=== PATIENT | female | born 1940 | race Caucasian/White ===

== ENCOUNTER → 2019-05-14 | Outpatient (CLI) | payer MEDICARE, OTHER ==
[~2019-05-14] MED LIST: CELE200C PO; DONE5TAB56 PO; FEXO180T81 PO; FLUO20CA16 PO; FLUT16SP NS; MONT10TA49 PO; OMEP20CA10 PO
[2019-05-14 14:46] LABS: HEMATOCRIT 23.5 % (36.0-47.0)
== END | disposition home or self-care (01) ==
LOC: LAB 14:08
PROVIDERS: ATTEND Family Medicine
DX: D64.9 Anemia, unspecified (principal)
CPT/HCPCS: 36415; 85014; 85018; 86850; 86900; 86901; 86920

== ENCOUNTER 2019-06-19 17:58 | Emergency (ER) | payer MEDICARE, OTHER ==
[~2019-06-19] VITALS: Ht 162.6 cm; Wt 121.1 kg
[2019-06-19 18:44] LABS: BASO # 0.1 x10^3/uL (0.0-0.2); BASO % 1 % (0-3); EOS # 0.4 x10^3/uL (0.0-0.7); EOS % 5 % (0-3); HEMATOCRIT 32.2 % (36.0-47.0); HEMOGLOBIN 9.8 g/dL (12.0-15.5); LYMPH # 1.6 x10^3/uL (1.0-4.8); LYMPH % 20 % (24-48); MEAN CORPUSCULAR HEMOGLOBIN 23 pg (25-35); MEAN CORPUSCULAR HGB CONC 30 g/dL (31-37); MEAN CORPUSCULAR VOLUME 77 fL (79-100); MONO # 0.7 x10^3/uL (0.0-1.1); MONO % 8 % (0-9); NEUT # 5.2 x10^3/uL (1.8-7.7); NEUT % 65 % (31-73); PLATELET COUNT 268 x10^3/uL (140-400); RED CELL DISTRIBUTION WIDTH 29.8 % (11.5-14.5)
[2019-06-19 18:53] LABS: CREATININE 0.9 mg/dL (0.6-1.0); GFR 60.6; POTASSIUM 4.1 mmol/L (3.5-5.1)
[2019-06-19 18:59] LABS: ALBUMIN 3.1 g/dL (3.4-5.0); ALBUMIN/GLOBULIN RATIO 0.7 (1.0-1.7); TOTAL BILIRUBIN 0.4 mg/dL (0.2-1.0); TOTAL PROTEIN 7.4 g/dL (6.4-8.2)
--- NOTE | 2019-06-19 19:29 | RAD ---
Exam: Chest one view INDICATION: Shortness of breath TECHNIQUE: Frontal view of the chest Comparisons: None FINDINGS: The cardiomediastinal silhouette and pulmonary vessels are within normal limits. Calcified hilar lymph nodes noted. Postsurgical changes at the left shoulder. The lung and pleural spaces are clear. IMPRESSION: No acute cardiopulmonary process. Electronically signed by: Ferny Merlos MD (06/19/2019 7:25 PM) [facility]
[2019-06-19 19:40] LABS: ANISOCYTOSIS MOD; PLT ESTIMATE ADEQUATE (ADEQUATE); POLYCHROMASIA SLIGHT; SCHISTOCYTES OCC
[2019-06-19] MEDS ORDERED: CEPH500C PO (20:07)
[2019-06-19 20:16] VITALS: BP 135/71
--- NOTE | 2019-06-19 20:34 | PHYS DOC ---
Past Medical History Past Medical History: Anemia Additional Past Medical Histor: BLOOD TRANSFUSIONS Alcohol Use: None Drug Use: None Adult General Chief Complaint Chief Complaint: MULTIPLE COMPLAINTS HPI HPI Patient is a 79 year old [female who presents the emergency room with multiple complaints the first complaint is that of itchiness and scratchiness of multiple lesions on her upper thorax and face which she has had for several months person accompanying her is worried it could be getting infected with a derma tologist did not want to give antibiotics they're here because she thinks that that might help. Other side note is that of shortness of breath but appears stable has had blood transfusions in the past however patient states that is not any different than usual Review of Systems Review of Systems Constitutional: Denies fever or chills [] Eyes: Denies change in visual acuity, redness, or eye pain [] Musculoskeletal: Denies back pain or joint pain [] Integument: Neurologic: Denies headache, focal weakness or sensory changes [] Endocrine: Denies polyuria or polydipsia [] All other systems were reviewed and found to be within normal limits, except as documented in this note. Allergies Allergies Allergies Coded Allergies Type Severity Reaction Last Updated Verified No Known Drug Allergies 06/19/19 No Physical Exam Physical Exam Constitutional: Well developed, over nourished, no acute distress, non-toxic candida earance. [] HENT: Normocephalic, atraumatic, bilateral external ears normal, oropharynx moist, no oral exudates, nose normal. [] Eyes: PERRLA, EOMI, conjunctiva normal, no discharge. [] Neck: Normal range of motion, no tenderness, supple, no stridor. [] Cardiovascular:Heart rate regular rhythm, no murmur [] Lungs & Thorax: Bilateral breath sounds clear to auscultation [] Abdomen: Bowel sounds normal, soft, no tenderness, no masses, no pulsatile masses. [] Skin: Scattered excoriated lesions on the upper thorax and face with some possible mild surrounding areas of erythema with induration totaling 5-8 lesions or more Maxide 2-3 cm no fluctuance seen Back: No tenderness, no CVA tenderness. [] Extremities: No tenderness, no cyanosis, no clubbing, ROM intact, 1+ edema bilaterally Neurologic: Alert and oriented X 3, normal motor function, normal sensory function, no focal deficits noted. [] Psychologic: Affect normal, judgement normal, mood normal. [] Current Patient Data Vital Signs Vital Signs Date Time Temp Pulse Resp B/P (MAP) Pulse Ox O2 Delivery O2 Flow Rate FiO2 06/19/19 20:16 99 135/71 (92) 06/19/19 19:45 96 06/19/19 18:14 97.8 18 Room Air 97.8 Lab Values Laboratory Tests Test 06/19/19 18:25 White Blood Count 8.0 x10^3/uL (4.0-11.0) Red Blood Count 4.20 x10^6/uL (3.50-5.40) Hemoglobin 9.8 g/dL (12.0-15.5) L Hematocrit 32.2 % (36.0-47.0) L Mean Corpuscular Volume 77 fL (79-100) L Mean Corpuscular Hemoglobin 23 pg (25-35) L Mean Corpuscular Hemoglobin Concent 30 g/dL (31-37) L Red Cell Distribution Width 29.8 % (11.5-14.5) H Platelet Count 268 x10^3/uL (140-400) Neutrophils (%) (Auto) 65 % (31-73) Lymphocytes (%) (Auto) 20 % (24-48) L Monocytes (%) (Auto) 8 % (0-9) Eosinophils (%) (Auto) 5 % (0-3) H Basophils (%) (Auto) 1 % (0-3) Neutrophils # (Auto) 5.2 x10^3/uL (1.8-7.7) Lymphocytes # (Auto) 1.6 x10^3/uL (1.0-4.8) Monocytes # (Auto) 0.7 x10^3/uL (0.0-1.1) Eosinophils # (Auto) 0.4 x10^3/uL (0.0-0.7) Basophils # (Auto) 0.1 x10^3/uL (0.0-0.2) Platelet Estimate Adequate (ADEQUATE) Polychromasia Slight Anisocytosis Mod Schistocytes Occ Sodium Level 140 mmol/L (136-145) Potassium Level 4.1 mmol/L (3.5-5.1) Chloride Level 102 mmol/L (98-107) Carbon Dioxide Level 27 mmol/L (21-32) Anion Gap 11 (6-14) Blood Urea Nitrogen 13 mg/dL (7-20) Creatinine 0.9 mg/dL (0.6-1.0) Estimated GFR (Cockcroft-Gault) 60.6 BUN/Creatinine Ratio 14 (6-20) Glucose Level 102 mg/dL (70-99) H Calcium Level 9.0 mg/dL (8.5-10.1) Total Bilirubin 0.4 mg/dL (0.2-1.0) Aspartate Amino Transferase (AST) 25 U/L (15-37) Alanine Aminotransferase (ALT) 13 U/L (14-59) L Alkaline Phosphatase 99 U/L (46-116) Troponin I Quantitative < 0.017 ng/mL (0.000-0.055) HF-Lgw-R-Type Natriuretic Peptide 70 pg/mL (0-449) Total Protein 7.4 g/dL (6.4-8.2) Albumin 3.1 g/dL (3.4-5.0) L Albumin/Globulin Ratio 0.7 (1.0-1.7) L Laboratory Tests 06/19/19 18:25 Laboratory Tests 06/19/19 18:25 EKG EKG []EKG shows a normal sinus rhythm rate of 92 no acute ischemic changes noted interpreted by me the time of encounter Radiology/Procedures Radiology/Procedures [] Impressions: INDINGS: The cardiomediastinal silhouette and pulmonary vessels are within normal limits. Calcified hilar lymph nodes noted. Postsurgical changes at the left shoulder. The lung and pleural spaces are clear. IMPRESSION: No acute cardiopulmonary process. Electronically signed by: Ferny Whitney MD (06/19/2019 7:25 PM) [facility] DICTATED and SIGNED BY: FERNY HWITNEY MD DATE: 06/19/191924 Course & Med Decision Making Course & Med Decision Making Pertinent Labs and Imaging studies reviewed. (See chart for details) []79-year-old female with a prior history of anemia who is presenting primarily with a complaint of some skin lesions. There may be some scattered superinfection around some of these excoriated scabbed over lesion she is scrat vonnie them a lot she has seen a centrifugal wax molder already has had multiple topical agents she still scratches think a trial of outpatient oral antibiotics does seem reasonable given the appearance this was provided with Dr. lim risks and benefits. Regarding her stable shortness of breath this seems unchanged from prior hemoglobin is 9.8 could be contributory remainder of workup in the ER for that chest x-ray EKG BNP and troponin were all negative 96 ra bp ok mild elevation see nurses note for full vitals Dragon Disclaimer Dragon Disclaimer This electronic medical record was generated, in whole or in part, using a voice recognition dictation system. Departure Departure Impression: Primary Impression: Cellulitis Disposition: 01 HOME, SELF-CARE Condition: STABLE Patient Instructions: Cellulitis, Zhmu-wa-Ojrv Scripts Cephalexin (CEPHALEXIN) 500 Mg Capsule 1 CAP PO TID, #21 CAP Prov: JAILYN CHANDLER MD 06/19/19 JAILYN CHANDLER MD Jun 19, 2019 20:34
--- NOTE | 2019-06-20 11:19 | EKG ---
[facility] [address] [place] [address] Test Date: 2019-06-19 Test Time: 18:46:00 Pat Name: BERNA OWUSU Department: Room: Gender: F Office Rep: : 1940 Requested By: JAILYN CHANDLER Order Number: [id number] Reading MD: Measurements Intervals [place] Rate: 92 P: 50 [place]: 134 QRS: 19 QRSD: 86 T: 38 QT: 348 QTc: 435 Interpretive Statements SINUS RHYTHM ATRIAL PREMATURE COMPLEX(ES) NO SPECIFIC ECG ABNORMALITIES RI6.01 Unconfirmed report No previous ECG available for comparison
== END 2019-06-19 20:15 | disposition home or self-care (01) ==
LOC: ER 17:58
DX: L03.211 Cellulitis of face (principal); L03.313 Cellulitis of chest wall; R06.02 Shortness of breath
CPT/HCPCS: 36415; 71045; 80053; 83880; 84484; 85025; 93005; 99285-25

== ENCOUNTER → 2019-06-22 | Outpatient (CLI) | payer MEDICARE, OTHER ==
[2019-06-19 20:16] VITALS: BP 135/71
[~2019-06-22] MED LIST changes: +CEPH500C PO
--- NOTE | 2019-06-22 11:49 | KCIC ---
CT ABDOMEN WO CONTRAST Indication: Right upper quadrant pain for 2 or 3 weeks. Cholecystectomy. Exposure: One or more of the following individualized dose reduction techniques were utilized for this examination: 1. Automated exposure control 2. Adjustment of the mA and/or kV according to patient size 3. Use of iterative reconstruction technique. Comparison: None are available. Technique: No intravenous contrast given. No oral contrast per request. Findings: Evaluation of solid viscera, bowel and vasculature is compromised by the noncontrast technique. Lung bases are clear. No obvious lesion of the liver or spleen. Small hepatosplenic granulomatous calcifications are seen. Spleen is borderline enlarged at 12.3 cm. Pancreas is unremarkable. No evidence of adrenal mass. No evidence of renal calculus or hydronephrosis. Tiny calcification at the cortical surface of the upper pole the right kidney only measuring 3 mm may represent a tiny calcified cyst. Gallbladder surgically absent. Aorta is nonaneurysmal, with mild atherosclerotic calcification. No significant lymph node enlargement is identified in the abdomen. No evidence of ascites. No evidence of pneumoperitoneum. Severe degenerative spondylosis of the visualized spine. Degenerative changes of the partially visualized upper most sacroiliac joints. IMPRESSION: 1. Borderline splenomegaly. 2. No definite acute findings in the abdomen. Electronically signed by: Yasir Santamaria MD (06/22/2019 11:46 AM) [facility]
== END | disposition home or self-care (01) ==
LOC: KCIC CT 10:04
PROVIDERS: ATTEND Family Medicine
DX: R16.1 Splenomegaly, not elsewhere classified (principal); M47.819 Spondylosis without myelopathy or radiculopathy, site unspecified; M53.3 Sacrococcygeal disorders, not elsewhere classified; I70.0 Atherosclerosis of aorta
CPT/HCPCS: 74150

== ENCOUNTER → 2020-02-23 | Outpatient (CLI) | payer MEDICARE, OTHER ==
[2020-01-20 15:09] VITALS: BP 130/66
[~2020-02-23] MED LIST changes: +ALBU2.5V8 IH; +CYAN100072 PO; +DONE10TA14 PO; +FLUO40CA2 PO; +FLUT9.9S NS; +MEMA10TA PO; +MUPI22OI2 TP; -OMEP20CA10 PO; +OMEP20CA16 PO
[2020-02-23 14:08] LABS: HEMATOCRIT 38.6 % (36.0-47.0); HEMOGLOBIN 12.2 g/dL (12.0-15.5)
== END | disposition home or self-care (01) ==
LOC: SPEC 13:57
PROVIDERS: ATTEND Family Medicine
DX: D50.9 Iron deficiency anemia, unspecified (principal)
CPT/HCPCS: 36415; 83540; 83550; 85014; 85018

== ENCOUNTER → 2020-04-05 | Outpatient (CLI) | payer MEDICARE, OTHER ==
[2020-01-20 15:09] VITALS: BP 130/66
[2020-04-05 15:14] LABS: BASO # 0.1 x10^3/uL (0.0-0.2); BASO % 1 % (0-3); EOS # 0.1 x10^3/uL (0.0-0.7); EOS % 1 % (0-3); HEMATOCRIT 45.4 % (36.0-47.0); HEMOGLOBIN 14.8 g/dL (12.0-15.5); LYMPH # 1.8 x10^3/uL (1.0-4.8); LYMPH % 23 % (24-48); MEAN CORPUSCULAR HEMOGLOBIN 28 pg (25-35); MEAN CORPUSCULAR HGB CONC 33 g/dL (31-37); MEAN CORPUSCULAR VOLUME 86 fL (79-100); MONO # 0.5 x10^3/uL (0.0-1.1); MONO % 7 % (0-9); NEUT # 5.3 x10^3/uL (1.8-7.7); NEUT % 68 % (31-73); PLATELET COUNT 259 x10^3/uL (140-400); RED BLOOD COUNT 5.26 x10^6/uL (3.50-5.40); RED CELL DISTRIBUTION WIDTH 17.2 % (11.5-14.5); WHITE BLOOD COUNT 7.8 x10^3/uL (4.0-11.0)
[2020-04-05 15:35] LABS: CALCIUM 7.9 mg/dL (8.5-10.1); CREATININE 0.8 mg/dL (0.6-1.0); GFR 69.2
[2020-04-05 15:51] LABS: POTASSIUM 2.6 mmol/L (3.5-5.1)
== END | disposition home or self-care (01) ==
LOC: SPEC 14:53
PROVIDERS: ATTEND Family Medicine
DX: N39.0 Urinary tract infection, site not specified (principal); F03.90 Unspecified dementia, unspecified severity, without behavioral disturbance, psychotic disturbance, mood disturbance, and anxiety
CPT/HCPCS: 36415; 80048; 85025

== ENCOUNTER 2020-04-06 09:34 | Inpatient (IN) | payer MEDICARE, OTHER ==
[~2020-04-06] VITALS: Ht 162.6 cm; Wt 101.1 kg
[2020-04-06 10:27] LABS: BASO # 0.1 x10^3/uL (0.0-0.2); BASO % 1 % (0-3); EOS # 0.2 x10^3/uL (0.0-0.7); EOS % 4 % (0-3); HEMOGLOBIN 13.9 g/dL (12.0-15.5); LYMPH # 1.7 x10^3/uL (1.0-4.8); LYMPH % 29 % (24-48); MEAN CORPUSCULAR HEMOGLOBIN 28 pg (25-35); MEAN CORPUSCULAR HGB CONC 32 g/dL (31-37); MEAN CORPUSCULAR VOLUME 86 fL (79-100); MONO # 0.4 x10^3/uL (0.0-1.1); MONO % 8 % (0-9); NEUT # 3.5 x10^3/uL (1.8-7.7); NEUT % 59 % (31-73); PLATELET COUNT 240 x10^3/uL (140-400); RED BLOOD COUNT 4.98 x10^6/uL (3.50-5.40); RED CELL DISTRIBUTION WIDTH 17.4 % (11.5-14.5); WHITE BLOOD COUNT 5.9 x10^3/uL (4.0-11.0)
[2020-04-06 10:37] LABS: CALCIUM 7.7 mg/dL (8.5-10.1); CREATININE 0.7 mg/dL (0.6-1.0); GFR 80.7; MAGNESIUM 1.8 mg/dL (1.8-2.4)
[2020-04-06 10:39] LABS: POTASSIUM 2.5 mmol/L (3.5-5.1)
[2020-04-06] MEDS ORDERED: POTASSIUM BICARB 20 MEQ EFFERVESCENT TABLET. PO ONE (11:00)
[2020-04-06] MEDS: POTASSIUM CHLORIDE 10MEQ 100 ML IV SCH ×4 (11:23→13:47)
--- NOTE | 2020-04-06 12:06 | PHYS DOC ---
Past Medical History Past Medical History: Anemia, Dementia, Depression Additional Past Medical Histor: BLOOD TRANSFUSIONS Smoking Status: Former Smoker Alcohol Use: None Drug Use: None Adult General Chief Complaint Chief Complaint: ABNORMAL LABS HPI HPI Patient is a 80 year old female who presents with abnormal labs and lower leg swelling. Patient had potassium of 2.5 today. She also reports increased peripheral edema involving lower extremities over the past 2 weeks. Denies chest pain palpitations, shortness of breath. No dizziness or lightheadedness. On EKG, patient noted to be in A. fib rate controlled. Patient denies prior history of atrial fibrillation and is not currently on anticoagulation. No other acute symptoms or complaints. [] Review of Systems Review of Systems ROS as per hpi All other systems were reviewed and found to be within normal limits, except as documented in this note. Current Medications Current Medications Current Medications Medications (Trade) Dose Ordered Sig/Xavi Start Time Stop Time Status Last Admin Dose Admin Potassium Bicarbonate (Potassium Effervescent Tablet) 40 meq 1X ONCE 04/06/20 11:00 04/06/20 11:02 DC 04/06/20 11:06 40 MEQ Potassium Chloride/Water 100 ml @ 100 mls/hr Q1H 04/06/20 11:00 04/06/20 14:59 04/06/20 11:23 100 MLS/HR Allergies Allergies Allergies Coded Allergies Type Severity Reaction Last Updated Verified No Known Drug Allergies 01/20/20 No Physical Exam Physical Exam Constitutional: Well developed, well nourished, no acute distress, non-toxic appearance. [] HENT: Normocephalic, atraumatic, bilateral external ears normal, oropharynx moist, no oral exudates, nose normal. [] Eyes: PERRLA, EOMI, conjunctiva normal, no discharge. [] Neck: Normal range of motion, no tenderness, supple, no stridor. [] Cardiovascular:Irreg rhythm, bipedal edema [] Lungs & Thorax: Bilateral breath sounds clear to auscultation [] Abdomen: Bowel sounds normal, soft, no tenderness. [] Skin: Warm, dry. [] Back: No tenderness. [] Extremities: No tenderness, no cyanosis, no clubbing, ROM intact, no edema. [] Neurologic: Alert and oriented X 3, normal motor function, normal sensory function, no focal deficits noted. [] Psychologic: Affect normal, judgement normal, mood normal. [] Current Patient Data Vital Signs Vital Signs Date Time Temp Pulse Resp B/P (MAP) Pulse Ox O2 Delivery O2 Flow Rate FiO2 04/06/20 10:11 106 16 112/63 (79) 95 Room Air 04/06/20 09:34 97.9 97.9 Lab Values Laboratory Tests Test 04/06/20 09:58 White Blood Count 5.9 x10^3/uL (4.0-11.0) Red Blood Count 4.98 x10^6/uL (3.50-5.40) Hemoglobin 13.9 g/dL (12.0-15.5) Hematocrit 43.0 % (36.0-47.0) Mean Corpuscular Volume 86 fL (79-100) Mean Corpuscular Hemoglobin 28 pg (25-35) Mean Corpuscular Hemoglobin Concent 32 g/dL (31-37) Red Cell Distribution Width 17.4 % (11.5-14.5) H Platelet Count 240 x10^3/uL (140-400) Neutrophils (%) (Auto) 59 % (31-73) Lymphocytes (%) (Auto) 29 % (24-48) Monocytes (%) (Auto) 8 % (0-9) Eosinophils (%) (Auto) 4 % (0-3) H Basophils (%) (Auto) 1 % (0-3) Neutrophils # (Auto) 3.5 x10^3/uL (1.8-7.7) Lymphocytes # (Auto) 1.7 x10^3/uL (1.0-4.8) Monocytes # (Auto) 0.4 x10^3/uL (0.0-1.1) Eosinophils # (Auto) 0.2 x10^3/uL (0.0-0.7) Basophils # (Auto) 0.1 x10^3/uL (0.0-0.2) Sodium Level 142 mmol/L (136-145) Potassium Level 2.5 mmol/L (3.5-5.1) *L Chloride Level 106 mmol/L (98-107) Carbon Dioxide Level 32 mmol/L (21-32) Anion Gap 4 (6-14) L Blood Urea Nitrogen 11 mg/dL (7-20) Creatinine 0.7 mg/dL (0.6-1.0) Estimated GFR (Cockcroft-Gault) 80.7 Glucose Level 81 mg/dL (70-99) Calcium Level 7.7 mg/dL (8.5-10.1) L Magnesium Level 1.8 mg/dL (1.8-2.4) Troponin I Quantitative 0.019 ng/mL (0.000-0.055) DR-Pxh-D-Type Natriuretic Peptide 1394 pg/mL (0-449) H Thyroid Stimulating Hormone (TSH) 0.677 uIU/mL (0.358-3.74) Laboratory Tests 04/06/20 09:58 Laboratory Tests 04/06/20 09:58 EKG EKG [EKG: afib] Radiology/Procedures Radiology/Procedures [CXR: NAD] Course & Med Decision Making Course & Med Decision Making Pertinent Labs and Imaging studies reviewed. (See chart for details) [Potassium replaced. Will admit to the hospital service for further evaluation and anticipated cardiology consult] Dragon Disclaimer Dragon Disclaimer This electronic medical record was generated, in whole or in part, using a voice recognition dictation system. Departure Departure Impression: Primary Impression: Hypokalemia Additional Impressions: Afib CHF (congestive heart failure) Disposition: 01 HOME, SELF-CARE Condition: STABLE Referrals: Kelley CANO MD (PCP) Problem Qualifiers JOSÉ LUIS KEENE DO April 06, 2020 12:06
--- NOTE | 2020-04-06 12:10 | RAD ---
INDICATION: Shortness of air COMPARISON: June 19, 2019 FINDINGS: Single view of chest obtained. There is resection or resorption changes at the distal clavicles. Postoperative changes left shoulder with a screw. Degenerative changes are seen within the bilateral shoulders. Cardiac mediastinal silhouette is enlarged with calcific atherosclerosis. No focal airspace consolidation or pulmonary edema. IMPRESSION: * No focal airspace consolidation. * Cardiac silhouette is enlarged. This can be seen with cardiomegaly and/or pericardial effusion. Electronically signed by: Antonio Dave MD (04/06/2020 12:07 PM) [id number]
[2020-04-06] MEDS ORDERED: guaiFENesin ORAL 200 MG/10 ML LIQUID. PO PRN (13:00)
[2020-04-06] MEDS ORDERED: DOCUSATE SODIUM 100 MG CAPSULE. PO PRN (13:00)
[2020-04-06] MEDS ORDERED: ACETAMINOPHEN 325 MG TABLET. PO PRN (13:00)
[2020-04-06] MEDS ORDERED: ONDANSETRON PF 4 MG/2 ML VIAL. IV PRN (13:00)
[2020-04-06] MEDS ORDERED: ALBUTEROL SULFATE 2.5 MG/3 ML NEBU. NEB PRN (13:00)
[2020-04-06] MEDS ORDERED: POTASSIUM CHLORIDE 20 MEQ TABLET.ER. PO SCH (13:00)
--- NOTE | 2020-04-06 13:06 | PDOC1 ---
History and Physical Date of Admission Date of Admission April 06, 2020 Identification/Chief Complaint Chief Complaint I was sent here Source Source: Chart review, Patient History of Present Illness History of Present Illness Patient is a 80-year-old female with past medical history of anemia dementia who was sent here by her primary care physician due to abnormal lab findings. Apparently the patient according to family has been weaker over the last 2 weeks prior to this admission she has also reported peripheral edema over the lower extremities the patient denies paroxysmal internal dyspnea no orthopnea she was also found to be in atrial fibrillation with rapid ventricular response the patient denies any chest pain no palpitations no sensation of her heart racing either. The patient denies syncopal episodes no reports of syncopal episodes either, lives at home with her family and has not had sick contacts no fever chills no cough or sputum production no viral-like symptoms were reported eithe r. Patient at the time my evaluation seems in no acute distress and does not have any complaints. She denies nausea vomiting no abdominal pain no urinary symptoms no CVA tenderness either. Patient denies any discomfort over her lower extremities. She was found to have a hypokalemia of 2.5 reason why we were asked to admit the patient and due to the incidental finding of atrial fibrillation as well. Family History Family History Family history reviewed and found negative and noncontributory to the present Family History: High Cholestrol, Hypertension Social History ALCOHOL: none Drugs: None Current Problem List Problem List Problems Medical Problems: (1) Afib Status: Acute (2) CHF (congestive heart failure) Status: Acute (3) Hypokalemia Status: Acute Current Medications Current Medications Current Medications Medications (Trade) Dose Ordered Sig/Xavi Start Time Stop Time Status Last Admin Dose Admin Acetaminophen (Tylenol) 650 mg PRN Q4HRS PRN 04/06/20 13:00 UNV Albuterol Sulfate (Ventolin Neb Soln) 2.5 mg PRN Q4HRS PRN 04/06/20 13:00 UNV Cyanocobalamin (Vitamin B-12) 1,000 mcg DAILY 04/07/20 09:00 UNV Docusate Sodium (Colace) 100 mg PRN BID PRN 04/06/20 13:00 UNV Enoxaparin Sodium (Lovenox 40mg Syringe) 40 mg Q24H 04/06/20 13:00 UNV Fluticasone Propionate (Flonase) 2 spray DAILY 04/07/20 09:00 UNV Guaifenesin (Robitussin) 200 mg PRN Q4HRS PRN 04/06/20 13:00 UNV Memantine (Namenda) 10 mg BID 04/06/20 21:00 UNV Montelukast Sodium (Singulair) 10 mg HS 04/06/20 21:00 UNV Mupirocin (Bactroban) 1 candida BID 04/06/20 21:00 UNV Non-Formulary Medication (Donepezil Hcl ) 10 mg HS 04/06/20 21:00 UNV Non-Formulary Medication (Fexofenadine Hcl (Siria Allergy)) 180 mg DAILY 04/07/20 09:00 UNV Non-Formulary Medication (Fluoxetine Hcl ) 1 cap DAILY 04/07/20 09:00 UNV Ondansetron HCl (Zofran) 4 mg PRN Q4HRS PRN 04/06/20 13:00 UNV Potassium Bicarbonate (Potassium Effervescent Tablet) 40 meq 1X ONCE 04/06/20 11:00 04/06/20 11:02 DC 04/06/20 11:06 40 MEQ Potassium Chloride/Water 100 ml @ 100 mls/hr Q1H 04/06/20 11:00 04/06/20 14:59 04/06/20 12:38 100 MLS/HR Zolpidem Tartrate (Ambien) 5 mg PRN QHS PRN 04/06/20 13:00 UNV Allergies Allergies Allergies Coded Allergies Type Severity Reaction Last Updated Verified No Known Drug Allergies 01/20/20 No ROS Review of System CONSTITUTIONAL: No fever or chills EYES: No recent changes SKIN: No rash or itching CARDIOVASCULAR: No chest pain, syncope, palpitations, or edema RESPIRATORY: No SOB or cough GASTROINTESTINAL: No nausea, vomiting or abdominal pain NEUROLOGICAL: No headaches or weakness ENDOCRINE: No cold or heat intolerance GENITOURINARY: No urgency or frequency of urination MUSCULOSKELETAL: No back pain or joint pain LYMPHATICS: No enlarged lymph nodes PSYCHIATRIC: No anxiety or depression Unreliable given underlying dementia Physical Exam Physical Exam GEN.: No apparent distress. Alert and oriented. HEENT: Head is normocephalic, atraumatic NECK: Supple. LUNGS: Clear to auscultation. HEART: IRR, S1, S2 present. Peripheral pulses intact ABDOMEN: Soft, nontender. Positive bowel sounds. EXTREMITIES: Without any cyanosis. NEUROLOGIC: Normal speech, normal tone cranial nerves II to XII intact no motor or sensory deficits appreciated PSYCHIATRIC: Normal affect, normal mood. SKIN: No ulcerations Vitals Vitals Vital Signs Date Time Temp Pulse Resp B/P (MAP) Pulse Ox O2 Delivery O2 Flow Rate FiO2 04/06/20 11:41 106 16 112/57 (75) 95 Room Air 04/06/20 09:34 97.9 97.9 Labs Labs Laboratory Tests Test 04/06/20 09:58 White Blood Count 5.9 x10^3/uL (4.0-11.0) Red Blood Count 4.98 x10^6/uL (3.50-5.40) Hemoglobin 13.9 g/dL (12.0-15.5) Hematocrit 43.0 % (36.0-47.0) Mean Corpuscular Volume 86 fL (79-100) Mean Corpuscular Hemoglobin 28 pg (25-35) Mean Corpuscular Hemoglobin Concent 32 g/dL (31-37) Red Cell Distribution Width 17.4 % (11.5-14.5) Platelet Count 240 x10^3/uL (140-400) Neutrophils (%) (Auto) 59 % (31-73) Lymphocytes (%) (Auto) 29 % (24-48) Monocytes (%) (Auto) 8 % (0-9) Eosinophils (%) (Auto) 4 % (0-3) Basophils (%) (Auto) 1 % (0-3) Neutrophils # (Auto) 3.5 x10^3/uL (1.8-7.7) Lymphocytes # (Auto) 1.7 x10^3/uL (1.0-4.8) Monocytes # (Auto) 0.4 x10^3/uL (0.0-1.1) Eosinophils # (Auto) 0.2 x10^3/uL (0.0-0.7) Basophils # (Auto) 0.1 x10^3/uL (0.0-0.2) Sodium Level 142 mmol/L (136-145) Potassium Level 2.5 mmol/L (3.5-5.1) Chloride Level 106 mmol/L (98-107) Carbon Dioxide Level 32 mmol/L (21-32) Anion Gap 4 (6-14) Blood Urea Nitrogen 11 mg/dL (7-20) Creatinine 0.7 mg/dL (0.6-1.0) Estimated GFR (Cockcroft-Gault) 80.7 Glucose Level 81 mg/dL (70-99) Calcium Level 7.7 mg/dL (8.5-10.1) Magnesium Level 1.8 mg/dL (1.8-2.4) Troponin I Quantitative 0.019 ng/mL (0.000-0.055) IX-Cuo-U-Type Natriuretic Peptide 1394 pg/mL (0-449) Thyroid Stimulating Hormone (TSH) 0.677 uIU/mL (0.358-3.74) Laboratory Tests Test 04/06/20 09:58 White Blood Count 5.9 x10^3/uL (4.0-11.0) Red Blood Count 4.98 x10^6/uL (3.50-5.40) Hemoglobin 13.9 g/dL (12.0-15.5) Hematocrit 43.0 % (36.0-47.0) Mean Corpuscular Volume 86 fL (79-100) Mean Corpuscular Hemoglobin 28 pg (25-35) Mean Corpuscular Hemoglobin Concent 32 g/dL (31-37) Red Cell Distribution Width 17.4 % (11.5-14.5) Platelet Count 240 x10^3/uL (140-400) Neutrophils (%) (Auto) 59 % (31-73) Lymphocytes (%) (Auto) 29 % (24-48) Monocytes (%) (Auto) 8 % (0-9) Eosinophils (%) (Auto) 4 % (0-3) Basophils (%) (Auto) 1 % (0-3) Neutrophils # (Auto) 3.5 x10^3/uL (1.8-7.7) Lymphocytes # (Auto) 1.7 x10^3/uL (1.0-4.8) Monocytes # (Auto) 0.4 x10^3/uL (0.0-1.1) Eosinophils # (Auto) 0.2 x10^3/uL (0.0-0.7) Basophils # (Auto) 0.1 x10^3/uL (0.0-0.2) Sodium Level 142 mmol/L (136-145) Potassium Level 2.5 mmol/L (3.5-5.1) Chloride Level 106 mmol/L (98-107) Carbon Dioxide Level 32 mmol/L (21-32) Anion Gap 4 (6-14) Blood Urea Nitrogen 11 mg/dL (7-20) Creatinine 0.7 mg/dL (0.6-1.0) Estimated GFR (Cockcroft-Gault) 80.7 Glucose Level 81 mg/dL (70-99) Calcium Level 7.7 mg/dL (8.5-10.1) Magnesium Level 1.8 mg/dL (1.8-2.4) Troponin I Quantitative 0.019 ng/mL (0.000-0.055) JD-Gze-Y-Type Natriuretic Peptide 1394 pg/mL (0-449) Thyroid Stimulating Hormone (TSH) 0.677 uIU/mL (0.358-3.74) VTE Prophylaxis Ordered VTE Prophylaxis Devices: No VTE Pharmacological Prophylaxi: Yes Assessment/Plan Assessment/Plan Atrial fibrillation with rapid ventricular response Hypokalemia Peripheral lower extremity edema Elevated BNP History of dementia History of anemia Plan We will request cardiology evaluation We will order an echocardiogram We will give 1 dose of Cardizem 10 mg for rate control Chads Vasc score by her age will probably require anticoagulation, will conference with applications consultant regarding this matter especially in the setting of underlying dementia Replace electrolytes Check labs in the a.m. Further recommendations based on clinical course DVT prophylaxis with Lovenox CLEMENCIA BARROW MD April 06, 2020 13:06
[2020-04-06 13:17] VITALS: BP 125/54
--- NOTE | 2020-04-06 13:30 | PDOC2 ---
ANDIE UGALDE DIRECTOR PRODUCT MANAGEMENT 04/06/20 1330: CARDIAC CONSULT DATE OF CONSULT Date of Consult DATE: 04/06/20 TIME: 13:13 REASON FOR CONSULT Reason for Consult: AFIB RVR REFERRING PHYSICIAN Referring Physician: [facility] SOURCE Source: Chart review, Patient HISTORY OF PRESENT ILLNESS HISTORY OF PRESENT ILLNESS This is a 80 yo female admitted for low potassium, weakness and leg swelling. She is a poor historian given her dementia so I called her sister in law shom she lives with who helps supervise her care at home. She receives home health care service and latest lab showed that her potassium was significantly low and was told by home health to call the paramedics. In the last 2 weeks her appetite has been down and has been having some SOA. No complains of palpitations or chest pain but has noted increasing leg edema. Prior falls but no syncopal spell. No hx of CAD nor arrhythmia. She does not take any BP meds. No past hx of VTE. Denies any nausea, vomiting and diarrhea. To add home health has noticed her HR has been up and down lately and she has been having urinary frequency. PAST MEDICAL HISTORY Pulmonary: Asthma CENTRAL NERVOUS SYSTEM: Dementia GI: GERD (gastritis) Heme/Onc: Anemia NOS, Other (+ROM) Hepatobiliary: Cholelithiasis, Other (splenomegal) Psych: Depression Musculoskeletal: low back pain (L1 compression fracture), Osteoarthritis Renal/: UTI, Urinary Incontinence PAST SURGICAL HISTORY Past Surgical History: Appendectomy, Cholecystectomy, Cataract Removal, Hy sterectomy, Other (Breast surgery; bilateral knee and shoulder surgery) FAMILY HISTORY Family History: Hypertension, Family History Unknown SOCIAL HISTORY Smoke: Quit ALCOHOL: none Drugs: None Lives: Alone CURRENT MEDICATIONS CURRENT MEDICATIONS Current Medications Medications (Trade) Dose Ordered Sig/Xavi Route PRN Reason Start Time Stop Time Status Last Admin Dose Admin Potassium Bicarbonate (Potassium Effervescent Tablet) 40 meq 1X ONCE PO 04/06/20 11:00 04/06/20 11:02 DC 04/06/20 11:06 Potassium Chloride/Water 100 ml @ 100 mls/hr Q1H IV 04/06/20 11:00 04/06/20 14:59 04/06/20 12:38 ALLERGIES ALLERGIES: Coded Allergies: No Known Drug Allergies (Unverified , 01/20/20) ROS Review of System limited, pt is alert and able to carry on a conversation but poor recall with underlying dementia. Presently oriented to self only. PHYSICAL EXAM General: Alert, Cooperative, No acute distress, Other (Ox1) HEENT: Atraumatic, Mucous membr. moist/pink Lungs: Other (diminished bases) Abdomen: Soft, No tenderness, Other (obese) Extremities: No cyanosis Skin: No breakdown Neuro: Normal speech, Sensation intact Psych/Mental Status: Other (confused) MUSCULOSKELETAL: Osteoarthritic changes both hands VITALS/I&O VITALS/I&O: Vital Signs Date Time Temp Pulse Resp B/P (MAP) Pulse Ox O2 Delivery O2 Flow Rate FiO2 04/06/20 11:41 106 16 112/57 (75) 95 Room Air 04/06/20 09:34 97.9 97.9 LABS Lab: Laboratory Tests Test 04/06/20 09:58 White Blood Count 5.9 x10^3/uL (4.0-11.0) Red Blood Count 4.98 x10^6/uL (3.50-5.40) Hemoglobin 13.9 g/dL (12.0-15.5) Hematocrit 43.0 % (36.0-47.0) Mean Corpuscular Volume 86 fL (79-100) Mean Corpuscular Hemoglobin 28 pg (25-35) Mean Corpuscular Hemoglobin Concent 32 g/dL (31-37) Red Cell Distribution Width 17.4 % (11.5-14.5) H Platelet Count 240 x10^3/uL (140-400) Neutrophils (%) (Auto) 59 % (31-73) Lymphocytes (%) (Auto) 29 % (24-48) Monocytes (%) (Auto) 8 % (0-9) Eosinophils (%) (Auto) 4 % (0-3) H Basophils (%) (Auto) 1 % (0-3) Neutrophils # (Auto) 3.5 x10^3/uL (1.8-7.7) Lymphocytes # (Auto) 1.7 x10^3/uL (1.0-4.8) Monocytes # (Auto) 0.4 x10^3/uL (0.0-1.1) Eosinophils # (Auto) 0.2 x10^3/uL (0.0-0.7) Basophils # (Auto) 0.1 x10^3/uL (0.0-0.2) Sodium Level 142 mmol/L (136-145) Potassium Level 2.5 mmol/L (3.5-5.1) *L Chloride Level 106 mmol/L (98-107) Carbon Dioxide Level 32 mmol/L (21-32) Anion Gap 4 (6-14) L Blood Urea Nitrogen 11 mg/dL (7-20) Creatinine 0.7 mg/dL (0.6-1.0) Estimated GFR (Cockcroft-Gault) 80.7 Glucose Level 81 mg/dL (70-99) Calcium Level 7.7 mg/dL (8.5-10.1) L Magnesium Level 1.8 mg/dL (1.8-2.4) Troponin I Quantitative 0.019 ng/mL (0.000-0.055) JK-[id number]-[id number]-Type Natriuretic Peptide 1394 pg/mL (0-449) H Thyroid Stimulating Hormone (TSH) 0.677 uIU/mL (0.358-3.74) Laboratory Tests 04/06/20 09:58 Laboratory Tests 04/06/20 09:58 ASSESSMENT/PLAN ASSESSMENT/PLAN 1. AFIB RVR: new finding in the setting of severe hypokalemia 2. 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 Hypokalemia 4. Dementia: on aricept and namenda 5. Urinary frequency: UTI vs induced by CHF Recommendations 1. IV lopressor x1. If BP tolerates then will start on routine PO, otherwise check K and if better then will utilize digoxin for rate control 2. Baby ECASA for stroke prevention. Likely has been having AFIB in the last 2 weeks. Likely poor candidate for anticoagulation with high risk for falls and significant issues with anemia in the past and GI bleed with transfusions. 3. Hold off any diuretics if BP is low as pt is not SOA and monitor BP trend. Elevated LE. 4. TTE, venous doppler and rule out DVT 5. LFTs and UA DONNA AKBAR MD 04/06/201952: CARDIAC CONSULT ASSESSMENT/PLAN ASSESSMENT/PLAN Patient seen and examined. Agree with WELDER OXYHYDROGEN's assessment and plan. AF rate better controlled She is poor candidate for manager intermediate AC 2D echo showed EF 50% Chr diast HF better compensated Continue current med regimen Thank you for your consultation ANDIE UGALDE APRN April 06, 2020 13:30 DONNA AKABR MD April 06, 2020 19:53
[2020-04-06] MEDS: CYANOCOBALAMIN (VITAMIN B-12) 1,000 MCG TABLET. PO SCH (13:32)
[2020-04-06] MEDS: ENOXAPARIN 40 MG/0.4 ML SYRINGE. SQ SCH (13:32)
[2020-04-06] MEDS ORDERED: METOPROLOL TARTRATE 5 MG/5 ML VIAL. IVP ONE (13:45)
[2020-04-06] MEDS: CETIRIZINE HCL 10 MG TABLET. PO SCH (13:46)
[2020-04-06] MEDS: FLUoxetine HCL 20 MG CAPSULE PO SCH (13:46)
--- NOTE | 2020-04-06 14:35 | EKG ---
[facility] [address] [place] [address] Test Date: 2020-04-06 Test Time: 09:38:48 Pat Name: BERNA MANRIQUE Department: Room: 256 1 Gender: F Medical Registrar: TAMMY : 1940 Requested By: JOSÉ LUIS KEENE Order Number: [id number] Reading MD: Brien Garcia Measurements Intervals [place] Rate: 104 P: [place]: QRS: 19 QRSD: 88 T: -52 QT: 324 QTc: 426 Interpretive Statements ATRIAL FIBRILLATION LOW LIMB LEAD VOLTAGE T ABNORMALITY IN ANTERIOR LEADS ABNORMAL ECG Electronically Signed On 04-07-2020 7:59:06 CDT by Brien Garcia
[2020-04-06 15:21] LABS: ALBUMIN 1.7 g/dL (3.4-5.0); DIRECT BILIRUBIN 0.4 mg/dL (0.0-0.2); TOTAL BILIRUBIN 0.6 mg/dL (0.2-1.0); TOTAL PROTEIN 4.7 g/dL (6.4-8.2)
[2020-04-06 15:29] VITALS: BP 104/64
[2020-04-06] MEDS: ASPIRIN ENTERIC COATED 81 MG TABLET.DR. PO SCH (15:30)
[2020-04-06 15:35] LABS: PROTHROMBIN TIME PATIENT 15.3 SEC (11.7-14.0)
--- NOTE | 2020-04-06 16:00 | CARD ---
MR#: [id number] Date of Study: 04/06/2020 Ordering Physician: ANDIE UGALDE, Referring Physician: ANDIE UGALDE, Tech: Trinidad Alberto APPROVED REPORT EXAM: Two-dimensional and M-mode echocardiogram with Doppler and color Doppler. Other Information Quality : AverageHR: 102bpm INDICATION Atrial Fibrillation 2D DIMENSIONS Left Atrium(2D)4.6 (1.6-4.0cm)IVSd1.1 (0.7-1.1cm) Aortic Root(2D)2.9 (2.0-3.7cm)LVDd4.4 (3.9-5.9cm) LVOT Diameter1.8 (1.8-2.4cm)PWd1.0 (0.7-1.1cm) LVDs3.3 (2.5-4.0cm)FS (%) 26.0 % SV45.1 mlLVEF(%)51.2 (>50%) Aortic Valve AoV Peak Harley.115.4cm/Abraham Peak GR.5.3mmHg LVOT VTI 13.38cm TDI Lateral E' P. V11.43cm/sMedial E' P. V8.87cm/s Tricuspid Valve TR P. [id number] [id number] TR Peak Gr.[id number] LEFT VENTRICLE The left ventricle is normal size. There is normal left ventricular wall thickness. The left ventricu lar systolic function is normal and the ejection fraction is within normal range. The Ejection Fracti on is estimated at 50%. Septal motion consistent with conduction abnormality. Diastology indeterminat e due to atrial fibrillation. RIGHT VENTRICLE The right ventricle is not well visualized. Right ventricular function cannot be assessed due to poor image quality. ATRIA The left atrium size is normal. The right atrium is not well visualized. The interatrial septum is in tact with no evidence for an atrial septal defect or patent foramen ovale as noted on 2-D or Doppler imaging. AORTIC VALVE The aortic valve is thickened but opens well. Doppler and Color Flow revealed trace aortic regurgitat ion. There is no significant aortic valvular stenosis. MITRAL VALVE The mitral valve is normal in structure and function. There is no evidence of mitral valve prolapse. There is no mitral valve stenosis. Doppler and Color-flow revealed trace mitral regurgitation. TRICUSPID VALVE The tricuspid valve is normal in structure and function. Doppler and Color Flow revealed trace tricus pid regurgitation with an estimated PAP of 23 mmHg. There is no tricuspid valve stenosis. PULMONIC VALVE The pulmonic valve is not well visualized. Doppler and Color Flow revealed no pulmonic valvular regur gitation. GREAT VESSELS The aortic root is normal in size. The IVC was not visualized. PERICARDIAL EFFUSION There is no evidence of significant pericardial effusion. Critical Notification Critical Value: No <Conclusion> The left ventricle is normal size. The left ventricular systolic function is normal and the ejection fraction is within normal range. The Ejection Fraction is estimated at 50%. Septal motion consistent with conduction abnormality. Doppler and Color Flow revealed trace aortic regurgitation. There is no significant aortic valvular stenosis. Doppler and Color-flow revealed trace mitral regurgitation. Doppler and Color Flow revealed trace tricuspid regurgitation with an estimated PAP of 23 mmHg. Signed by : Juan Alberto Jaime MD Electronically Approved : 04/06/2020 15:59:29
[2020-04-06] MEDS ORDERED: POTASSIUM CHLORIDE 20 MEQ TABLET.ER. PO ONE (16:15)
--- NOTE | 2020-04-06 16:38 | RAD ---
Bilateral lower extremity venous doppler ultrasound History: Bilateral lower extremity edema Comparison: None Findings: Multiple grayscale, color, and duplex spectral analysis sonographic images were acquired of the Bilateral lower extremity veins to evaluate for the presence of DVT. Exam is limited due to patient's body habitus. There is grossly preserved color flow and phasicity of the visualized lower extremity veins bilaterally, no obvious thrombus demonstrated. There is a left popliteal fossa fluid collection about 5.9 x 2.7 x 1.2 cm in size, some internal echoes present. Impression: 1. There is no obvious evidence of deep venous thrombosis from the bilateral common femoral to the popliteal veins. 2. There is left popliteal fossa fluid collection/Pedro's cyst. Electronically signed by: Fab Lala MD (04/06/2020 4:35 PM) [id number]
[2020-04-06 16:45] LABS: BILIRUBIN,URINE NEGATIVE (NEG); CLARITY,URINE CLOUDY; NITRITE,URINE NEGATIVE (NEG); PH,URINE 5.5 (<5.0-8.0); PROTEIN,URINE NEGATIVE (NEG-TRACE)
[2020-04-06 16:54] LABS: COLOR,URINE YELLOW
[2020-04-06 16:55] LABS: HYALINE CASTS, URINE MODERATE /HPF; SQUAMOUS EPITHELIAL CELL,UR MANY /LPF
[2020-04-06 16:56] LABS: AMORPHOUS SEDIMENT,UR PRESENT /HPF; BACTERIA,URINE FEW /HPF (0-FEW); RBC,URINE 0 /HPF (0-2); WBC,URINE TNTC /HPF (0-4)
[2020-04-06] MEDS ORDERED: DIGOXIN IV 500 MCG/2 ML AMPUL. IV ONE (18:15)
[2020-04-06] MEDS: cefTRIAXone IV Push 1 GM VIAL. IVP SCH (18:35)
[2020-04-06 19:00] VITALS: BP 87/61
[2020-04-06] MEDS: MEMANTINE 10 MG TABLET. PO SCH (20:00)
[2020-04-06] MEDS: MONTELUKAST SODIUM 10 MG TABLET. PO SCH (20:00)
[2020-04-06] MEDS: DONEPEZIL HCL 10 MG TABLET. PO SCH (20:00)
[2020-04-06] MEDS: MUPIROCIN 2 % NASAL OINTMENT 22GM TUBE. TP SCH (20:01)
[2020-04-06 23:00] VITALS: BP 116/56
[2020-04-07 03:00] VITALS: BP 105/60
[2020-04-07 04:58] LABS: BASO # 0.1 x10^3/uL (0.0-0.2); BASO % 1 % (0-3); EOS # 0.2 x10^3/uL (0.0-0.7); EOS % 4 % (0-3); HEMATOCRIT 37.8 % (36.0-47.0); HEMOGLOBIN 12.1 g/dL (12.0-15.5); LYMPH % 35 % (24-48); MEAN CORPUSCULAR HEMOGLOBIN 28 pg (25-35); MEAN CORPUSCULAR HGB CONC 32 g/dL (31-37); MEAN CORPUSCULAR VOLUME 87 fL (79-100); MONO # 0.5 x10^3/uL (0.0-1.1); MONO % 9 % (0-9); NEUT % 52 % (31-73); PLATELET COUNT 204 x10^3/uL (140-400); RED BLOOD COUNT 4.34 x10^6/uL (3.50-5.40); RED CELL DISTRIBUTION WIDTH 17.5 % (11.5-14.5); WHITE BLOOD COUNT 5.8 x10^3/uL (4.0-11.0)
[2020-04-07 05:12] LABS: CALCIUM 7.3 mg/dL (8.5-10.1); CREATININE 0.7 mg/dL (0.6-1.0); GFR 80.7; MAGNESIUM 1.6 mg/dL (1.8-2.4); POTASSIUM 3.9 mmol/L (3.5-5.1)
[2020-04-07 07:28] VITALS: BP 101/66
--- NOTE | 2020-04-07 10:12 | PDOC ---
PROGRESS NOTES History of Present Illness History of Present Illness VTE Prophylaxis Ordered VTE Prophylaxis Devices: No VTE Pharmacological Prophylaxi: Yes impression Assessment/Plan Atrial fibrillation with rapid ventricular response Hypokalemia Peripheral lower extremity edema Elevated BNP History of dementia History of anemia severe protein-caloric malnutrition uti Plan cardiology evaluation echocardiogram We will give 1 dose of Cardizem 10 mg for rate control Chads Vasc score by her age will probably require anticoagulation, Baby ECASA for stroke prevention Replace electrolytes Check labs in the a.m. Further recommendations based on clinical course DVT prophylaxis with Lovenox OT for lymphedema nutrition consult IV ROCEPHIN PT/OT d/w RN Vitals Vitals Vital Signs Date Time Temp Pulse Resp B/P (MAP) Pulse Ox O2 Delivery O2 Flow Rate FiO2 04/07/20 07:28 97.6 106 16 101/66 (78) 95 Room Air 97.6 Physical Exam General: Alert, Cooperative, No acute distress, Other (Ox1) Heart: Regular rate, Other (irrr) Lungs: Clear Abdomen: Normal bowel sounds, Soft, No tenderness, Other (obese) Extremities: No cyanosis Skin: No breakdown Labs LABS Aortic Valve AoV Peak Harley. 115.4cm/s AO Peak GR. 5.3mmHg LVOT VTI 13.38cm TDI Lateral E' P. V 11.43cm/s Medial E' P. V 8.87cm/s Tricuspid Valve TR P. Velocity 224cm/s RAP ESTIMATE 3mmHg TR Peak Gr. 20mmHg RVSP 23mmHg LEFT VENTRICLE The left ventricle is normal size. There is normal left ventricular wall thickness. The left ventricular systolic function is normal and the ejection fraction is within normal range. The Ejection Fraction is estimated at 50%. Septal motion consistent with conduction abnormality. Diastology indeterminate due to atrial fibrillation. RIGHT VENTRICLE The right ventricle is not well visualized. Right ventricular function cannot be assessed due to poor image quality. ATRIA The left atrium size is normal. The right atrium is not well visualized. The interatrial septum is intact with no evidence for an atrial septal defect or patent foramen ovale as noted on 2-D or Doppler imaging. AORTIC VALVE The aortic valve is thickened but opens well. Doppler and Color Flow revealed trace aortic regurgitation. There is no significant aortic valvular stenosis. MITRAL VALVE The mitral valve is normal in structure and function. There is no evidence of mitral valve prolapse. There is no mitral valve stenosis. Doppler and Color-flow revealed trace mitral regurgitation. TRICUSPID VALVE The tricuspid valve is normal in structure and function. Doppler and Color Flow revealed trace tricuspid regurgitation with an estimated PAP of 23 mmHg. There is no tricuspid valve stenosis. PULMONIC VALVE The pulmonic valve is not well visualized. Doppler and Color Flow revealed no pulmonic valvular regurgitation. GREAT VESSELS The aortic root is normal in size. The IVC was not visualized. PERICARDIAL EFFUSION There is no evidence of significant pericardial effusion. Critical Notification Critical Value: No <Conclusion> The left ventricle is normal size. The left ventricular systolic function is normal and the ejection fraction is within normal range. The Ejection Fraction is estimated at 50%. Septal motion consistent with conduction abnormality. Doppler and Color Flow revealed trace aortic regurgitation. There is no significant aortic valvular stenosis. Doppler and Color-flow revealed trace mitral regurgitation. Doppler and Color Flow revealed trace tricuspid regurgitation with an estimated PAP of 23 mmHg. Signed by : Nelly Jaime MD Electronically Approved : 04/06/2020 15:59:29 DICTATED and SIGNED BY: NELLY JAIME MD DATE: 04/06/20 1548 Laboratory Tests Test 04/06/20 15:15 04/06/20 16:20 04/07/20 04:30 Prothrombin Time 15.3 SEC (11.7-14.0) Prothromb Time International Ratio 1.3 (0.8-1.1) Potassium Level 3.5 mmol/L (3.5-5.1) 3.9 mmol/L (3.5-5.1) Urine Collection Type Unknown Urine Color Yellow Urine Clarity Cloudy Urine pH 5.5 (<5.0-8.0) Urine Specific [place] >=1.030 (1.000-1.030) Urine Protein Negative mg/dL (NEG-TRACE) Urine Glucose (UA) Negative mg/dL (NEG) Urine Ketones (Stick) Trace mg/dL (NEG) Urine Blood Negative (NEG) Urine Nitrite Negative (NEG) Urine Bilirubin Negative (NEG) Urine Urobilinogen Dipstick 1.0 mg/dL (0.2 mg/dL) Urine Leukocyte Esterase Large (NEG) Urine RBC 0 /HPF (0-2) Urine WBC Tntc /HPF (0-4) Urine Squamous Epithelial Cells Many /LPF Urine Renal Epithelial Cells Few /LPF Urine Amorphous Sediment Present /HPF Urine Bacteria Few /HPF (0-FEW) Urine Hyaline Casts Moderate /HPF Urine Mucus Marked /LPF White Blood Count 5.8 x10^3/uL (4.0-11.0) Red Blood Count 4.34 x10^6/uL (3.50-5.40) Hemoglobin 12.1 g/dL (12.0-15.5) Hematocrit 37.8 % (36.0-47.0) Mean Corpuscular Volume 87 fL (79-100) Mean Corpuscular Hemoglobin 28 pg (25-35) Mean Corpuscular Hemoglobin Concent 32 g/dL (31-37) Red Cell Distribution Width 17.5 % (11.5-14.5) Platelet Count 204 x10^3/uL (140-400) Neutrophils (%) (Auto) 52 % (31-73) Lymphocytes (%) (Auto) 35 % (24-48) Monocytes (%) (Auto) 9 % (0-9) Eosinophils (%) (Auto) 4 % (0-3) Basophils (%) (Auto) 1 % (0-3) Neutrophils # (Auto) 3.0 x10^3/uL (1.8-7.7) Lymphocytes # (Auto) 2.0 x10^3/uL (1.0-4.8) Monocytes # (Auto) 0.5 x10^3/uL (0.0-1.1) Eosinophils # (Auto) 0.2 x10^3/uL (0.0-0.7) Basophils # (Auto) 0.1 x10^3/uL (0.0-0.2) Sodium Level 143 mmol/L (136-145) Chloride Level 109 mmol/L (98-107) Carbon Dioxide Level 31 mmol/L (21-32) Anion Gap 3 (6-14) Blood Urea Nitrogen 12 mg/dL (7-20) Creatinine 0.7 mg/dL (0.6-1.0) Estimated GFR (Cockcroft-Gault) 80.7 Glucose Level 77 mg/dL (70-99) Calcium Level 7.3 mg/dL (8.5-10.1) Magnesium Level 1.6 mg/dL (1.8-2.4) Assessment and Plan Assessmemt and Plan Problems Medical Problems: (1) Afib Status: Acute (2) CHF (congestive heart failure) Status: Acute (3) Hypokalemia Status: Acute Comment Review of Relevant I have reviewed the following items getachew (where applicable) has been applied. Labs Laboratory Tests Test 04/06/20 09:58 04/06/20 15:15 04/06/20 16:20 04/07/20 04:30 White Blood Count 5.9 x10^3/uL (4.0-11.0) 5.8 x10^3/uL (4.0-11.0) Red Blood Count 4.98 x10^6/uL (3.50-5.40) 4.34 x10^6/uL (3.50-5.40) Hemoglobin 13.9 g/dL (12.0-15.5) 12.1 g/dL (12.0-15.5) Hematocrit 43.0 % (36.0-47.0) 37.8 % (36.0-47.0) Mean Corpuscular Volume 86 fL (79-100) 87 fL (79-100) Mean Corpuscular Hemoglobin 28 pg (25-35) 28 pg (25-35) Mean Corpuscular Hemoglobin Concent 32 g/dL (31-37) 32 g/dL (31-37) Red Cell Distribution Width 17.4 % (11.5-14.5) 17.5 % (11.5-14.5) Platelet Count 240 x10^3/uL (140-400) 204 x10^3/uL (140-400) Neutrophils (%) (Auto) 59 % (31-73) 52 % (31-73) Lymphocytes (%) (Auto) 29 % (24-48) 35 % (24-48) Monocytes (%) (Auto) 8 % (0-9) 9 % (0-9) Eosinophils (%) (Auto) 4 % (0-3) 4 % (0-3) Basophils (%) (Auto) 1 % (0-3) 1 % (0-3) Neutrophils # (Auto) 3.5 x10^3/uL (1.8-7.7) 3.0 x10^3/uL (1.8-7.7) Lymphocytes # (Auto) 1.7 x10^3/uL (1.0-4.8) 2.0 x10^3/uL (1.0-4.8) Monocytes # (Auto) 0.4 x10^3/uL (0.0-1.1) 0.5 x10^3/uL (0.0-1.1) Eosinophils # (Auto) 0.2 x10^3/uL (0.0-0.7) 0.2 x10^3/uL (0.0-0.7) Basophils # (Auto) 0.1 x10^3/uL (0.0-0.2) 0.1 x10^3/uL (0.0-0.2) Sodium Level 142 mmol/L (136-145) 143 mmol/L (136-145) Potassium Level 2.5 mmol/L (3.5-5.1) 3.5 mmol/L (3.5-5.1) 3.9 mmol/L (3.5-5.1) Chloride Level 106 mmol/L (98-107) 109 mmol/L (98-107) Carbon Dioxide Level 32 mmol/L (21-32) 31 mmol/L (21-32) Anion Gap 4 (6-14) 3 (6-14) Blood Urea Nitrogen 11 mg/dL (7-20) 12 mg/dL (7-20) Creatinine 0.7 mg/dL (0.6-1.0) 0.7 mg/dL (0.6-1.0) Estimated GFR (Cockcroft-Gault) 80.7 80.7 Glucose Level 81 mg/dL (70-99) 77 mg/dL (70-99) Calcium Level 7.7 mg/dL (8.5-10.1) 7.3 mg/dL (8.5-10.1) Magnesium Level 1.8 mg/dL (1.8-2.4) 1.6 mg/dL (1.8-2.4) Total Bilirubin 0.6 mg/dL (0.2-1.0) Direct Bilirubin 0.4 mg/dL (0.0-0.2) Aspartate Amino Transf (AST/SGOT) 39 U/L (15-37) Alanine Aminotransferase (ALT/SGPT) 27 U/L (14-59) Alkaline Phosphatase 115 U/L (46-116) Troponin I Quantitative 0.019 ng/mL (0.000-0.055) VH-Zja-Z-Type Natriuretic Peptide 1394 pg/mL (0-449) Total Protein 4.7 g/dL (6.4-8.2) Albumin 1.7 g/dL (3.4-5.0) Thyroid Stimulating Hormone (TSH) 0.677 uIU/mL (0.358-3.74) Prothrombin Time 15.3 SEC (11.7-14.0) Prothromb Time International Ratio 1.3 (0.8-1.1) Urine Collection Type Unknown Urine Color Yellow Urine Clarity Cloudy Urine pH 5.5 (<5.0-8.0) Urine Specific [place] >=1.030 (1.000-1.030) Urine Protein Negative mg/dL (NEG-TRACE) Urine Glucose (UA) Negative mg/dL (NEG) Urine Ketones (Stick) Trace mg/dL (NEG) Urine Blood Negative (NEG) Urine Nitrite Negative (NEG) Urine Bilirubin Negative (NEG) Urine Urobilinogen Dipstick 1.0 mg/dL (0.2 mg/dL) Urine Leukocyte Esterase Large (NEG) Urine RBC 0 /HPF (0-2) Urine WBC Tntc /HPF (0-4) Urine Squamous Epithelial Cells Many /LPF Urine Renal Epithelial Cells Few /LPF Urine Amorphous Sediment Present /HPF Urine Bacteria Few /HPF (0-FEW) Urine Hyaline Casts Moderate /HPF Urine Mucus Marked /LPF Laboratory Tests Test 04/06/20 15:15 04/06/20 16:20 04/07/20 04:30 Prothrombin Time 15.3 SEC (11.7-14.0) Prothromb Time International Ratio 1.3 (0.8-1.1) Potassium Level 3.5 mmol/L (3.5-5.1) 3.9 mmol/L (3.5-5.1) Urine Collection Type Unknown Urine Color Yellow Urine Clarity Cloudy Urine pH 5.5 (<5.0-8.0) Urine Specific [place] >=1.030 (1.000-1.030) Urine Protein Negative mg/dL (NEG-TRACE) Urine Glucose (UA) Negative mg/dL (NEG) Urine Ketones (Stick) Trace mg/dL (NEG) Urine Blood Negative (NEG) Urine Nitrite Negative (NEG) Urine Bilirubin Negative (NEG) Urine Urobilinogen Dipstick 1.0 mg/dL (0.2 mg/dL) Urine Leukocyte Esterase Large (NEG) Urine RBC 0 /HPF (0-2) Urine WBC Tntc /HPF (0-4) Urine Squamous Epithelial Cells Many /LPF Urine Renal Epithelial Cells Few /LPF Urine Amorphous Sediment Present /HPF Urine Bacteria Few /HPF (0-FEW) Urine Hyaline Casts Moderate /HPF Urine Mucus Marked /LPF White Blood Count 5.8 x10^3/uL (4.0-11.0) Red Blood Count 4.34 x10^6/uL (3.50-5.40) Hemoglobin 12.1 g/dL (12.0-15.5) Hematocrit 37.8 % (36.0-47.0) Mean Corpuscular Volume 87 fL (79-100) Mean Corpuscular Hemoglobin 28 pg (25-35) Mean Corpuscular Hemoglobin Concent 32 g/dL (31-37) Red Cell Distribution Width 17.5 % (11.5-14.5) Platelet Count 204 x10^3/uL (140-400) Neutrophils (%) (Auto) 52 % (31-73) Lymphocytes (%) (Auto) 35 % (24-48) Monocytes (%) (Auto) 9 % (0-9) Eosinophils (%) (Auto) 4 % (0-3) Basophils (%) (Auto) 1 % (0-3) Neutrophils # (Auto) 3.0 x10^3/uL (1.8-7.7) Lymphocytes # (Auto) 2.0 x10^3/uL (1.0-4.8) Monocytes # (Auto) 0.5 x10^3/uL (0.0-1.1) Eosinophils # (Auto) 0.2 x10^3/uL (0.0-0.7) Basophils # (Auto) 0.1 x10^3/uL (0.0-0.2) Sodium Level 143 mmol/L (136-145) Chloride Level 109 mmol/L (98-107) Carbon Dioxide Level 31 mmol/L (21-32) Anion Gap 3 (6-14) Blood Urea Nitrogen 12 mg/dL (7-20) Creatinine 0.7 mg/dL (0.6-1.0) Estimated GFR (Cockcroft-Gault) 80.7 Glucose Level 77 mg/dL (70-99) Calcium Level 7.3 mg/dL (8.5-10.1) Magnesium Level 1.6 mg/dL (1.8-2.4) Medications Current Medications Potassium Bicarbonate (Potassium Effervescent Tablet) 40 meq 1X ONCE PO Last administered on 04/06/20 11:06; Start 04/06/20 at 11:00; Stop 04/06/20 at 11:02; Status DC Potassium Chloride/Water 100 ml @ 100 mls/hr Q1H IV Last administered on 04/06/20 13:47; Start 04/06/20 at 11:00; Stop 04/06/20 at 14:59; Status DC Ondansetron HCl (Zofran) 4 mg PRN Q4HRS PRN IV NAUSEA/VOMITING; Start 04/06/20 at 13:00 Zolpidem Tartrate (Ambien) 5 mg PRN QHS PRN PO INSOMNIA; Start 04/06/20 at 13:00 Acetaminophen (Tylenol) 650 mg PRN Q4HRS PRN PO TEMP OVER 100.4F OR MILD PAIN; Start 04/06/20 at 13:00 Docusate Sodium (Colace) 100 mg PRN BID PRN PO HARD STOOLS; Start 04/06/20 at 13:00 Albuterol Sulfate (Ventolin Neb Soln) 2.5 mg PRN Q4HRS PRN NEB SHORTNESS OF BREATH; Start 04/06/20 at 13:00 Guaifenesin (Robitussin) 200 mg PRN Q4HRS PRN PO COUGH; Start 04/06/20 at 13:00 Enoxaparin Sodium (Lovenox 40mg Syringe) 40 mg Q24H SQ Last administered on 04/06/20 13:32; Start 04/06/20 at 13:00 Cyanocobalamin (Vitamin B-12) 1,000 mcg DAILY PO Last administered on 04/06/20 13:32; Start 04/06/20 at 14:00 Fluticasone Propionate (Flonase) 2 spray DAILY NS ; Start 04/07/20 at 09:00 Memantine (Namenda) 10 mg BID PO Last administered on 04/06/20at 20:00; Start 04/06/20 at 21:00 Montelukast Sodium (Singulair) 10 mg HS PO Last administered on 04/06/20 20:00; Start 04/06/20 at 21:00 Mupirocin (Bactroban) 1 mine BID TP Last administered on 04/06/20 20:01; Start 04/06/20 at 21:00 Donepezil HCl (Aricept) 10 mg QHS PO Last administered on 04/06/20 20:00; S tart 04/06/20 at 21:00 Cetirizine HCl (ZyrTEC) 10 mg DAILY PO Last administered on 04/06/20 13:46; Start 04/06/20 at 14:00 Fluoxetine HCl (PROzac) 40 mg DAILY PO Last administered on 04/06/20 13:46; Start 04/06/20 at 14:00 Potassium Chloride (Klor-Con) 40 meq Q2H PO Last administered on 04/06/20 13:33; Start 04/06/20 at 13:00; Stop 04/06/20 at 13:39; Status DC Metoprolol Tartrate (Lopressor Vial) 5 mg 1X ONCE IVP Last administered on 04/06/20 13:46; Start 04/06/20 at 13:45; Stop 04/06/20 at 13:46; Status DC Aspirin (Ecotrin) 81 mg DAILYWBKFT PO Last administered on 04/06/20 15:30; Start 04/06/20 at 15:15 Potassium Chloride (Klor-Con) 20 meq 1X ONCE PO Last administered on 04/06/20 17:19; Start 04/06/20 at 16:15; Stop 04/06/20 at 16:17; Status DC Digoxin (Lanoxin) 250 mcg 1X ONCE IV Last administered on 04/06/20 18:24; Start 04/06/20 at 18:15; Stop 04/06/20 at 18:16; Status DC Ceftriaxone Sodium (Rocephin) 1 gm Q24H IVP Last administered on 04/06/20 18:35; Start 04/06/20 at 18:30 Active Scripts Active Reported Proair Hfa Inhaler (Albuterol Sulfate) 8.5 Gm Hfa.aer.ad 2 Puff IH PRN Q4-6HRS PRN 21 Days Mupirocin Ointment (Mupirocin) 22 Gm Oint...g. 1 Mine TP BID B-12 (Cyanocobalamin (Vitamin B-12)) 1,000 Mcg Tablet 1 Tab PO DAILY 30 Days Namenda (Memantine Hcl) 10 Mg Tablet 1 Tab PO BID Donepezil Hcl 10 Mg Tab.rapdis 10 Mg PO HS Fluoxetine Hcl 40 Mg Capsule 1 Cap PO DAILY Fluticasone Propionate Nasal Kimberly (Fluticasone Propionate) 16 Gm Kimberly.susp 2 Kimberly NS DAILY Montelukast Sodium Tablet (Montelukast Sodium) 10 Mg Tablet 10 Mg PO HS Siria Allergy (Fexofenadine Hcl) 180 Mg Tablet 180 Mg PO DAILY Vitals/I & O Vital Sign - Last 24 Hours 04/06/20 04/06/20 04/06/20 04/06/20 10:41 11:11 11:41 12:11 Pulse 100 50 106 110 Resp 16 16 16 16 B/P (MAP) 108/59 (75) 109/75 (86) 112/57 (75) 109/64 (79) Pulse Ox 92 97 95 96 O2 Delivery Room Air Room Air Room Air Room Air 04/06/20 04/06/20 04/06/20 04/06/20 12:41 13:17 13:46 15:29 Temp 97.6 97.6 97.6 97.6 Pulse 124 110 124 100 Resp 16 18 20 B/P (MAP) 103/59 (74) 125/54 (77) 125/54 104/64 (77) Pulse Ox 97 95 97 O2 Delivery Room Air Room Air Room Air 04/06/20 04/06/20 04/06/20 04/06/20 15:43 18:24 19:00 20:00 Temp 97.6 97.6 Pulse 100 112 Resp 16 B/P (MAP) 104/64 87/61 (70) Pulse Ox 97 O2 Delivery Room Air Room Air Room Air 04/06/20 04/07/20 04/07/20 23:00 03:00 07:28 Temp 98.0 98.0 97.6 98.0 98.0 97.6 Pulse 110 111 106 Resp 20 16 16 B/P (MAP) 116/56 (76) 105/60 (75) 101/66 (78) Pulse Ox 96 97 95 O2 Delivery Room Air Room Air Room Air Intake and Output 04/06/20 04/06/20 04/07/20 15:00 23:00 07:00 Intake Total 100 ml 250 ml 500 ml Output Total 300 ml 200 ml Balance 100 ml -50 ml 300 ml GIORGI GRIJALVA MD April 07, 2020 10:12
[2020-04-07] MEDS ORDERED: DIGOXIN IV 500 MCG/2 ML AMPUL. IV ONE (10:45)
--- NOTE | 2020-04-07 10:45 | PDOC ---
CARDIO Progress Notes Date and Time Date of Service 04/07/2020 Time of Evaluation 0930 Subjective Subjective: No Chest Pain, No shortness of breath, No Palpitations Vitals Vitals Vital Signs Date Time Temp Pulse Resp B/P (MAP) Pulse Ox O2 Delivery O2 Flow Rate FiO2 04/07/20 07:28 97.6 106 16 101/66 (78) 95 Room Air 97.6 Weight Weight [ ] Input and Output Intake and Output Intake and Output 04/07/20 07:00 Intake Total 850 ml Output Total 500 ml Balance 350 ml Intake Oral 750 ml IV Total 100 ml Output Urine Total 500 ml # Voids 100 # Bowel Movements 2 Laboratory Labs Laboratory Tests Test 04/06/20 15:15 04/06/20 16:20 04/07/20 04:30 Prothrombin Time 15.3 SEC (11.7-14.0) Prothromb Time International Ratio 1.3 (0.8-1.1) Potassium Level 3.5 mmol/L (3.5-5.1) 3.9 mmol/L (3.5-5.1) Urine Collection Type Unknown Urine Color Yellow Urine Clarity Cloudy Urine pH 5.5 (<5.0-8.0) Urine Specific [place] >=1.030 (1.000-1.030) Urine Protein Negative mg/dL (NEG-TRACE) Urine Glucose (UA) Negative mg/dL (NEG) Urine Ketones (Stick) Trace mg/dL (NEG) Urine Blood Negative (NEG) Urine Nitrite Negative (NEG) Urine Bilirubin Negative (NEG) Urine Urobilinogen Dipstick 1.0 mg/dL (0.2 mg/dL) Urine Leukocyte Esterase Large (NEG) Urine RBC 0 /HPF (0-2) Urine WBC Tntc /HPF (0-4) Urine Squamous Epithelial Cells Many /LPF Urine Renal Epithelial Cells Few /LPF Urine Amorphous Sediment Present /HPF Urine Bacteria Few /HPF (0-FEW) Urine Hyaline Casts Moderate /HPF Urine Mucus Marked /LPF White Blood Count 5.8 x10^3/uL (4.0-11.0) Red Blood Count 4.34 x10^6/uL (3.50-5.40) Hemoglobin 12.1 g/dL (12.0-15.5) Hematocrit 37.8 % (36.0-47.0) Mean Corpuscular Volume 87 fL (79-100) Mean Corpuscular Hemoglobin 28 pg (25-35) Mean Corpuscular Hemoglobin Concent 32 g/dL (31-37) Red Cell Distribution Width 17.5 % (11.5-14.5) Platelet Count 204 x10^3/uL (140-400) Neutrophils (%) (Auto) 52 % (31-73) Lymphocytes (%) (Auto) 35 % (24-48) Monocytes (%) (Auto) 9 % (0-9) Eosinophils (%) (Auto) 4 % (0-3) Basophils (%) (Auto) 1 % (0-3) Neutrophils # (Auto) 3.0 x10^3/uL (1.8-7.7) Lymphocytes # (Auto) 2.0 x10^3/uL (1.0-4.8) Monocytes # (Auto) 0.5 x10^3/uL (0.0-1.1) Eosinophils # (Auto) 0.2 x10^3/uL (0.0-0.7) Basophils # (Auto) 0.1 x10^3/uL (0.0-0.2) Sodium Level 143 mmol/L (136-145) Chloride Level 109 mmol/L (98-107) Carbon Dioxide Level 31 mmol/L (21-32) Anion Gap 3 (6-14) Blood Urea Nitrogen 12 mg/dL (7-20) Creatinine 0.7 mg/dL (0.6-1.0) Estimated GFR (Cockcroft-Gault) 80.7 Glucose Level 77 mg/dL (70-99) Calcium Level 7.3 mg/dL (8.5-10.1) Magnesium Level 1.6 mg/dL (1.8-2.4) Physical Exam HEENT: Neck Supple W Full Motion Chest: Symmetric LUNGS: Other (diminished bases) Heart: irregularly irregular (AFIB) Extremities: Other (3-4+ bilateral LE pitting edema) Neurology: follow commands, confused, other (asleep but arousable) Assessment Assessment 1. AFIB RVR: rate better. EF 50% no significant valvular disease. 2. Suspect chronic diastolic CHF: appears compensated but with large LE edema 3. Hypomagnesemia 4. Dementia: on aricept and namenda 5. UTI: per PCP 6. LE Lymphedema with protein malnutrition. neg DVTR per doppler Recommendations 1. Unable to start on lopressor PO due to marginal low BP. Dig IV x1. Replace Mg 2. Baby ECASA for stroke prevention. Likely has been having AFIB in the last 2 weeks. Likely poor candidate for anticoagulation with high risk for falls and significant issues with anemia in the past and GI bleed with transfusions. 3. Legs remains significantly edematous but no weeping. Will need PO diuretic if BP is adequate otherwise hypoalbuminemia is contributing. Elevate legs and will consult lymphedema specialist. ANDIE UGALDE [employer] SUPERVISOR April 07, 2020 10:45
[2020-04-07] MEDS ORDERED: MAGNESIUM SULFATE 2GM 50 ML IV ONE (11:00)
[2020-04-07 11:25] VITALS: BP 130/74
[2020-04-07] MEDS: FLUTICASONE 50MCG/NASAL SPRAY 16GM BOTTLE. NS SCH (11:26)
[2020-04-07] MEDS: MUPIROCIN 2 % NASAL OINTMENT 22GM TUBE. TP SCH ×2 (11:28→21:13)
[2020-04-07] MEDS: FLUoxetine HCL 20 MG CAPSULE PO SCH (11:28)
[2020-04-07] MEDS: MEMANTINE 10 MG TABLET. PO SCH ×2 (11:29→21:13)
[2020-04-07] MEDS: CETIRIZINE HCL 10 MG TABLET. PO SCH (11:29)
[2020-04-07] MEDS: CYANOCOBALAMIN (VITAMIN B-12) 1,000 MCG TABLET. PO SCH (11:29)
[2020-04-07] MEDS: ASPIRIN ENTERIC COATED 81 MG TABLET.DR. PO SCH (11:29)
--- NOTE | 2020-04-07 12:28 | NUR ---
SS following for discharge planning. SS reviewed pt chart and discussed with pt RN. Pt is from home with family and is currently on room air. Pt was on services with [facility], ; fax [phone]. Pt currently on IV Rocephin for UTI. SS will continue to follow for discharge planning.
[2020-04-07 14:41] VITALS: BP 112/63
[2020-04-07] MEDS: ENOXAPARIN 40 MG/0.4 ML SYRINGE. SQ SCH (14:41)
[2020-04-07] MEDS: cefTRIAXone IV Push 1 GM VIAL. IVP SCH (18:11)
[2020-04-07 19:00] VITALS: BP 118/63
--- NOTE | 2020-04-07 19:45 | NUR ---
Assessment Completed vss poc explained pt reoriented to surroundings call light in reach will resume care and continue to monitor pt. Bed alarm set.
[2020-04-07] MEDS: MONTELUKAST SODIUM 10 MG TABLET. PO SCH (21:12)
[2020-04-07] MEDS: DONEPEZIL HCL 10 MG TABLET. PO SCH (21:12)
[2020-04-07] MEDS: ZOLPIDEM 5 MG TABLET. PO PRN (21:13)
[2020-04-07 22:58] VITALS: BP 108/63
[2020-04-08 03:07] VITALS: BP 129/79
[2020-04-08 05:32] LABS: BASO % 1 % (0-3); EOS # 0.2 x10^3/uL (0.0-0.7); EOS % 5 % (0-3); HEMATOCRIT 37.8 % (36.0-47.0); HEMOGLOBIN 12.2 g/dL (12.0-15.5); LYMPH # 1.5 x10^3/uL (1.0-4.8); LYMPH % 29 % (24-48); MEAN CORPUSCULAR HEMOGLOBIN 28 pg (25-35); MEAN CORPUSCULAR HGB CONC 32 g/dL (31-37); MEAN CORPUSCULAR VOLUME 87 fL (79-100); MONO # 0.4 x10^3/uL (0.0-1.1); MONO % 9 % (0-9); NEUT # 2.9 x10^3/uL (1.8-7.7); NEUT % 57 % (31-73); PLATELET COUNT 190 x10^3/uL (140-400); RED BLOOD COUNT 4.34 x10^6/uL (3.50-5.40); RED CELL DISTRIBUTION WIDTH 17.4 % (11.5-14.5); WHITE BLOOD COUNT 5.2 x10^3/uL (4.0-11.0)
[2020-04-08 05:50] LABS: ALBUMIN 1.2 g/dL (3.4-5.0); ALBUMIN/GLOBULIN RATIO 0.4 (1.0-1.7); CALCIUM 7.2 mg/dL (8.5-10.1); CREATININE 0.7 mg/dL (0.6-1.0); GFR 80.7; POTASSIUM 3.6 mmol/L (3.5-5.1); TOTAL BILIRUBIN 0.3 mg/dL (0.2-1.0)
[2020-04-08 07:00] VITALS: BP 126/61
[2020-04-08 08:39] LABS: ANISOCYTOSIS PRESENT; PLT ESTIMATE ADEQUATE (ADEQUATE)
[2020-04-08] MEDS: CETIRIZINE HCL 10 MG TABLET. PO SCH (08:59)
[2020-04-08] MEDS: MEMANTINE 10 MG TABLET. PO SCH ×2 (08:59→21:55)
[2020-04-08] MEDS: ASPIRIN ENTERIC COATED 81 MG TABLET.DR. PO SCH (08:59)
[2020-04-08] MEDS: CYANOCOBALAMIN (VITAMIN B-12) 1,000 MCG TABLET. PO SCH (09:00)
[2020-04-08] MEDS: FLUoxetine HCL 20 MG CAPSULE PO SCH (09:00)
[2020-04-08] MEDS: MUPIROCIN 2 % NASAL OINTMENT 22GM TUBE. TP SCH ×2 (09:03→22:11)
[2020-04-08] MEDS: FLUTICASONE 50MCG/NASAL SPRAY 16GM BOTTLE. NS SCH (09:05)
--- NOTE | 2020-04-08 10:07 | PDOC ---
PROGRESS NOTES History of Present Illness History of Present Illness VTE Prophylaxis Ordered VTE Prophylaxis Devices: No VTE Pharmacological Prophylaxi: Yes impression Assessment/Plan Atrial fibrillation with rapid ventricular response Hypokalemia Peripheral lower extremity edema LE Lymphedema with protein malnutrition. neg DVTR per doppler Elevated BNP History of dementia History of anemia severe protein-caloric malnutrition uti Plan cardiology evaluation echocardiogram LE Lymphedema with protein malnutrition. neg DVTR per doppler Chads Vasc score by her age will probably require anticoagulation, Baby ECASA for stroke prevention Replace electrolytes Check labs in the a.m. Further recommendations based on clinical course DVT prophylaxis with Lovenox OT for lymphedema nutrition consult IV ROCEPHIN PT/OT D/W OT d/w RN Vitals Vitals Vital Signs Date Time Temp Pulse Resp B/P (MAP) Pulse Ox O2 Delivery O2 Flow Rate FiO2 04/08/20 07:00 97.8 109 18 126/61 (82) 93 Room Air 97.8 Physical Exam General: Alert, Cooperative, No acute distress, Other (Ox1) Heart: Regular rate, Other (irrr) Lungs: Clear Abdomen: Normal bowel sounds, Soft, No tenderness, Other (obese) Extremities: No cyanosis Skin: No breakdown Labs LABS Laboratory Tests Test 04/08/20 05:05 White Blood Count 5.2 x10^3/uL (4.0-11.0) Red Blood Count 4.34 x10^6/uL (3.50-5.40) Hemoglobin 12.2 g/dL (12.0-15.5) Hematocrit 37.8 % (36.0-47.0) Mean Corpuscular Volume 87 fL (79-100) Mean Corpuscular Hemoglobin 28 pg (25-35) Mean Corpuscular Hemoglobin Concent 32 g/dL (31-37) Red Cell Distribution Width 17.4 % (11.5-14.5) Platelet Count 190 x10^3/uL (140-400) Neutrophils (%) (Auto) 57 % (31-73) Lymphocytes (%) (Auto) 29 % (24-48) Monocytes (%) (Auto) 9 % (0-9) Eosinophils (%) (Auto) 5 % (0-3) Basophils (%) (Auto) 1 % (0-3) Neutrophils # (Auto) 2.9 x10^3/uL (1.8-7.7) Lymphocytes # (Auto) 1.5 x10^3/uL (1.0-4.8) Monocytes # (Auto) 0.4 x10^3/uL (0.0-1.1) Eosinophils # (Auto) 0.2 x10^3/uL (0.0-0.7) Basophils # (Auto) 0.0 x10^3/uL (0.0-0.2) Platelet Estimate Adequate (ADEQUATE) Anisocytosis Present Sodium Level 142 mmol/L (136-145) Potassium Level 3.6 mmol/L (3.5-5.1) Chloride Level 108 mmol/L (98-107) Carbon Dioxide Level 30 mmol/L (21-32) Anion Gap 4 (6-14) Blood Urea Nitrogen 13 mg/dL (7-20) Creatinine 0.7 mg/dL (0.6-1.0) Estimated GFR (Cockcroft-Gault) 80.7 BUN/Creatinine Ratio 19 (6-20) Glucose Level 85 mg/dL (70-99) Calcium Level 7.2 mg/dL (8.5-10.1) Total Bilirubin 0.3 mg/dL (0.2-1.0) Aspartate Amino Transf (AST/SGOT) 29 U/L (15-37) Alanine Aminotransferase (ALT/SGPT) 18 U/L (14-59) Alkaline Phosphatase 93 U/L (46-116) Total Protein 4.0 g/dL (6.4-8.2) Albumin 1.2 g/dL (3.4-5.0) Albumin/Globulin Ratio 0.4 (1.0-1.7) Assessment and Plan Assessmemt and Plan Problems Medical Problems: (1) Afib Status: Acute (2) CHF (congestive heart failure) Status: Acute (3) Hypokalemia Status: Acute Physical Barriers in Home Environment * One Stair Railing * Greater than 4 steps ADL Assistance Required Prior to Admission * Min Assistance ADL Assistance Provided By * Family Other information - PLOF ADLs * Pt stated that she has not been bathing; assist with dressing Mobility Assistance Required Prior to Admission * Independent Mobility devices used prior to admission * Roller Walker * Cane Other Prior Level of Function Information * Edema history: patient reports swelling started 2 weeks ago; she denies issues with swelling previously and has not used compression garments in the past. Pt reports that Precious help her when needed. Pt normally able to climb steps and fix simple meals and snacks. Pt normally able to take herself to the bathroom. Other Precautions * fall risk Hand Dominance * Right Level of Consciousness * Drowsy Oriented to: * Person Cognition Comments * Alert to name. Follows Direction * Simple Neurological Deficits * R/L discrimination Safety/Judgement * Due to Medical Status Activity Tolerance/ Vitals * Resting rate: 92-110bpm; Sats 98% RA. Patient denied SOA. Objective Measures Comment * Circumferential measurements: Foot: Right Left 10cm 23.2cm 23.1cm Leg: ankle: 25.3cm 25.5cm Calf: 44.8cm 45.4cm Total: 93.3cm 94cm Patient denies pain throughout bilateral LE. +2 pitting edema present throughout foot and lower legs. Mild hemociderin staining present R LE. There is no weeping or drainage at this time. Skin is soft proximately with mild fibrosis distally. No open wounds noted and no active s/s of infectious process occurring at this time. Pain Score * 0 Pain Comments * Patient denied pain. Therapeutic Activity * Patient reclined in chair, resting comfortably upon arrival. Bilateral LE assessed and measurements taken. Due to the quick onset of edema symmetrically to LEs, would recommend initiating compression gradually and monitor response. Medi-paper box cutter Size G applied from foot to knee in single layer. Patient tolerated well. Encourage continued elevation. D/w Dr. Grijalva. Functional Limitations ADLs Comments * Patient will benefit from skilled lymphedema therapy to reduce edema and maintain skin integrity. Gentle compression; encourage elevation. Will review LE lymphedema exercises at next visit. Patient Stated Goal * To get legs smaller Rehab Potential to Achieve Goals * Fair Learning Preferences * One-on-One Instruction Problem List * Edema Pt/caregiver agree with plan of care * Decreased Mentation Communicated Patient Care With (Name, Title) * CHARISSE Hess; Dr. Grijalva Goal 1: Pt will tolerate functional activities for * 10min Goal 1 Position: * Seated * Standing Goal 2: Pt will be able to complete: * grooming/hyg Goal 2 Equipment: * Front Wheeled Walker Goal 2 Required Assistance Level * Supervision or setup * Standing Goal 3: Pt will be able to complete: * bed mobility Goal 3 Required Assistance Level * Independent Goal 4 - Pt will be able to complete: * toileting Goal 4 Required Assistance Level * Minimum assist Goal 5 - Pt. will be able to complete: * BUE HEP Goal 5 Required Assistance Level * Stand-by Assist Goal 6 * Lymphedema Goals: 1. Patient will tolerate compression to bilateral LEs by discharge. 2. Patient will be educated on LE lymphedema exercises by discharge. 3. Patient/family will be educated on long-term edema management strategies by discharge. Skilled interventions required to achieve goals * Activity hernan. training * ADL training/education * Balance training for ADL * Caregiver training * Compensatory techniques * Discharge planning * Edema management * Functional mobility train * Home exercise prog * Neuromuscular re-ed. * Safety education * Therapeutic Ex. * Transfer training for ADL Number of Days/Weeks for length of Stay, or Until Goals Met * 2x/week Discharge Recommendations * Home with Assistance * Home with Home Health * Home with 24hr care Comment Review of Relevant I have reviewed the following items getachew (where applicable) has been applied. Labs Laboratory Tests Test 04/06/20 15:15 04/06/20 16:20 04/07/20 04:30 04/08/20 05:05 Prothrombin Time 15.3 SEC (11.7-14.0) Prothromb Time International Ratio 1.3 (0.8-1.1) Potassium Level 3.5 mmol/L (3.5-5.1) 3.9 mmol/L (3.5-5.1) 3.6 mmol/L (3.5-5.1) Urine Collection Type Unknown Urine Color Yellow Urine Clarity Cloudy Urine pH 5.5 (<5.0-8.0) Urine Specific [place] >=1.030 (1.000-1.030) Urine Protein Negative mg/dL (NEG-TRACE) Urine Glucose (UA) Negative mg/dL (NEG) Urine Ketones (Stick) Trace mg/dL (NEG) Urine Blood Negative (NEG) Urine Nitrite Negative (NEG) Urine Bilirubin Negative (NEG) Urine Urobilinogen Dipstick 1.0 mg/dL (0.2 mg/dL) Urine Leukocyte Esterase Large (NEG) Urine RBC 0 /HPF (0-2) Urine WBC Tntc /HPF (0-4) Urine Squamous Epithelial Cells Many /LPF Urine Renal Epithelial Cells Few /LPF Urine Amorphous Sediment Present /HPF Urine Bacteria Few /HPF (0-FEW) Urine Hyaline Casts Moderate /HPF Urine Mucus Marked /LPF White Blood Count 5.8 x10^3/uL (4.0-11.0) 5.2 x10^3/uL (4.0-11.0) Red Blood Count 4.34 x10^6/uL (3.50-5.40) 4.34 x10^6/uL (3.50-5.40) Hemoglobin 12.1 g/dL (12.0-15.5) 12.2 g/dL (12.0-15.5) Hematocrit 37.8 % (36.0-47.0) 37.8 % (36.0-47.0) Mean Corpuscular Volume 87 fL (79-100) 87 fL (79-100) Mean Corpuscular Hemoglobin 28 pg (25-35) 28 pg (25-35) Mean Corpuscular Hemoglobin Concent 32 g/dL (31-37) 32 g/dL (31-37) Red Cell Distribution Width 17.5 % (11.5-14.5) 17.4 % (11.5-14.5) Platelet Count 204 x10^3/uL (140-400) 190 x10^3/uL (140-400) Neutrophils (%) (Auto) 52 % (31-73) 57 % (31-73) Lymphocytes (%) (Auto) 35 % (24-48) 29 % (24-48) Monocytes (%) (Auto) 9 % (0-9) 9 % (0-9) Eosinophils (%) (Auto) 4 % (0-3) 5 % (0-3) Basophils (%) (Auto) 1 % (0-3) 1 % (0-3) Neutrophils # (Auto) 3.0 x10^3/uL (1.8-7.7) 2.9 x10^3/uL (1.8-7.7) Lymphocytes # (Auto) 2.0 x10^3/uL (1.0-4.8) 1.5 x10^3/uL (1.0-4.8) Monocytes # (Auto) 0.5 x10^3/uL (0.0-1.1) 0.4 x10^3/uL (0.0-1.1) Eosinophils # (Auto) 0.2 x10^3/uL (0.0-0.7) 0.2 x10^3/uL (0.0-0.7) Basophils # (Auto) 0.1 x10^3/uL (0.0-0.2) 0.0 x10^3/uL (0.0-0.2) Sodium Level 143 mmol/L (136-145) 142 mmol/L (136-145) Chloride Level 109 mmol/L (98-107) 108 mmol/L (98-107) Carbon Dioxide Level 31 mmol/L (21-32) 30 mmol/L (21-32) Anion Gap 3 (6-14) 4 (6-14) Blood Urea Nitrogen 12 mg/dL (7-20) 13 mg/dL (7-20) Creatinine 0.7 mg/dL (0.6-1.0) 0.7 mg/dL (0.6-1.0) Estimated GFR (Cockcroft-Gault) 80.7 80.7 Glucose Level 77 mg/dL (70-99) 85 mg/dL (70-99) Calcium Level 7.3 mg/dL (8.5-10.1) 7.2 mg/dL (8.5-10.1) Magnesium Level 1.6 mg/dL (1.8-2.4) Platelet Estimate Adequate (ADEQUATE) Anisocytosis Present BUN/Creatinine Ratio 19 (6-20) Total Bilirubin 0.3 mg/dL (0.2-1.0) Aspartate Amino Transf (AST/SGOT) 29 U/L (15-37) Alanine Aminotransferase (ALT/SGPT) 18 U/L (14-59) Alkaline Phosphatase 93 U/L (46-116) Total Protein 4.0 g/dL (6.4-8.2) Albumin 1.2 g/dL (3.4-5.0) Albumin/Globulin Ratio 0.4 (1.0-1.7) Laboratory Tests Test 04/08/20 05:05 White Blood Count 5.2 x10^3/uL (4.0-11.0) Red Blood Count 4.34 x10^6/uL (3.50-5.40) Hemoglobin 12.2 g/dL (12.0-15.5) Hematocrit 37.8 % (36.0-47.0) Mean Corpuscular Volume 87 fL (79-100) Mean Corpuscular Hemoglobin 28 pg (25-35) Mean Corpuscular Hemoglobin Concent 32 g/dL (31-37) Red Cell Distribution Width 17.4 % (11.5-14.5) Platelet Count 190 x10^3/uL (140-400) Neutrophils (%) (Auto) 57 % (31-73) Lymphocytes (%) (Auto) 29 % (24-48) Monocytes (%) (Auto) 9 % (0-9) Eosinophils (%) (Auto) 5 % (0-3) Basophils (%) (Auto) 1 % (0-3) Neutrophils # (Auto) 2.9 x10^3/uL (1.8-7.7) Lymphocytes # (Auto) 1.5 x10^3/uL (1.0-4.8) Monocytes # (Auto) 0.4 x10^3/uL (0.0-1.1) Eosinophils # (Auto) 0.2 x10^3/uL (0.0-0.7) Basophils # (Auto) 0.0 x10^3/uL (0.0-0.2) Platelet Estimate Adequate (ADEQUATE) Anisocytosis Present Sodium Level 142 mmol/L (136-145) Potassium Level 3.6 mmol/L (3.5-5.1) Chloride Level 108 mmol/L (98-107) Carbon Dioxide Level 30 mmol/L (21-32) Anion Gap 4 (6-14) Blood Urea Nitrogen 13 mg/dL (7-20) Creatinine 0.7 mg/dL (0.6-1.0) Estimated GFR (Cockcroft-Gault) 80.7 BUN/Creatinine Ratio 19 (6-20) Glucose Level 85 mg/dL (70-99) Calcium Level 7.2 mg/dL (8.5-10.1) Total Bilirubin 0.3 mg/dL (0.2-1.0) Aspartate Amino Transf (AST/SGOT) 29 U/L (15-37) Alanine Aminotransferase (ALT/SGPT) 18 U/L (14-59) Alkaline Phosphatase 93 U/L (46-116) Total Protein 4.0 g/dL (6.4-8.2) Albumin 1.2 g/dL (3.4-5.0) Albumin/Globulin Ratio 0.4 (1.0-1.7) Medications Current Medications Potassium Bicarbonate (Potassium Effervescent Tablet) 40 meq 1X ONCE PO Last administered on 04/06/20 11:06; Start 04/06/20 at 11:00; Stop 04/06/20 at 11:02; Status DC Potassium Chloride/Water 100 ml @ 100 mls/hr Q1H IV Last administered on 04/06/20 13:47; Start 04/06/20 at 11:00; Stop 04/06/20 at 14:59; Status DC Ondansetron HCl (Zofran) 4 mg PRN Q4HRS PRN IV NAUSEA/VOMITING; Start 04/06/20 at 13:00 Zolpidem Tartrate (Ambien) 5 mg PRN QHS PRN PO INSOMNIA Last administered on 04/07/20 21:13; Start 04/06/20 at 13:00 Acetaminophen (Tylenol) 650 mg PRN Q4HRS PRN PO TEMP OVER 100.4F OR MILD PAIN; Start 04/06/20 at 13:00 Docusate Sodium (Colace) 100 mg PRN BID PRN PO HARD STOOLS; Start 04/06/20 at 13:00 Albuterol Sulfate (Ventolin Neb Soln) 2.5 mg PRN Q4HRS PRN NEB SHORTNESS OF BREATH; Start 04/06/20 at 13:00 Guaifenesin (Robitussin) 200 mg PRN Q4HRS PRN PO COUGH; Start 04/06/20 at 13:00 Enoxaparin Sodium (Lovenox 40mg Syringe) 40 mg Q24H SQ Last administered on 04/07/20 14:41; Start 04/06/20 at 13:00 Cyanocobalamin (Vitamin B-12) 1,000 mcg DAILY PO Last administered on 04/08/20 09:00; Start 04/06/20 at 14:00 Fluticasone Propionate (Flonase) 2 spray DAILY NS Last administered on 04/08/20 09:05; Start 04/07/20 at 09:00 Memantine (Namenda) 10 mg BID PO Last administered on 04/08/20 08:59; Start 04/06/20 at 21:00 Montelukast Sodium (Singulair) 10 mg HS PO Last administered on 04/07/20 21:12; Start 04/06/20 at 21:00 Mupirocin (Bactroban) 1 mine BID TP Last administered on 04/08/20at 09:03; Start 04/06/20 at 21:00 Donepezil HCl (Aricept) 10 mg QHS PO Last administered on 04/07/20at 21:12; Start 04/06/20 at 21:00 Cetirizine HCl (ZyrTEC) 10 mg DAILY PO Last administered on 04/08/20 08:59; Start 04/06/20 at 14:00 Fluoxetine HCl (PROzac) 40 mg DAILY PO Last administered on 04/08/20 09:00; Start 04/06/20 at 14:00 Potassium Chloride (Klor-Con) 40 meq Q2H PO Last administered on 04/06/20at 13:33; Start 04/06/20 at 13:00; Stop 04/06/20 at 13:39; Status DC Metoprolol Tartrate (Lopressor Vial) 5 mg 1X ONCE IVP Last administered on 04/06/20at 13:46; Start 04/06/20 at 13:45; Stop 04/06/20 at 13:46; Status DC Aspirin (Ecotrin) 81 mg DAILYWBKFT PO Last administered on 04/08/20at 08:59; Start 04/06/20 at 15:15 Potassium Chloride (Klor-Con) 20 meq 1X ONCE PO Last administered on 04/06/20at 17:19; Start 04/06/20 at 16:15; Stop 04/06/20 at 16:17; Status DC Digoxin (Lanoxin) 250 mcg 1X ONCE IV Last administered on 04/06/20at 18:24; Start 04/06/20 at 18:15; Stop 04/06/20 at 18:16; Status DC Ceftriaxone Sodium (Rocephin) 1 gm Q24H IVP Last administered on 04/07/20at 18:11; Start 04/06/20 at 18:30 Digoxin (Lanoxin) 250 mcg 1X ONCE IV Last administered on 04/07/20at 11:28; Start 04/07/20 at 10:45; Stop 04/07/20 at 10:46; Status DC Magnesium Sulfate 50 ml @ 25 mls/hr 1X ONCE IV Last administered on 04/07/20at 11:28; Start 04/07/20 at 11:00; Stop 04/07/20 at 12:59; Status DC Active Scripts Active Reported Proair Hfa Inhaler (Albuterol Sulfate) 8.5 Gm Hfa.aer.ad 2 Puff IH PRN Q4-6HRS PRN 21 Days Mupirocin Ointment (Mupirocin) 22 Gm Oint...g. 1 Mine TP BID B-12 (Cyanocobalamin (Vitamin B-12)) 1,000 Mcg Tablet 1 Tab PO DAILY 30 Days Namenda (Memantine Hcl) 10 Mg Tablet 1 Tab PO BID Donepezil Hcl 10 Mg Tab.rapdis 10 Mg PO HS Fluoxetine Hcl 40 Mg Capsule 1 Cap PO DAILY Fluticasone Propionate Nasal Siren (Fluticasone Propionate) 16 Gm Siren.susp 2 Siren NS DAILY Montelukast Sodium Tablet (Montelukast Sodium) 10 Mg Tablet 10 Mg PO HS Siria Allergy (Fexofenadine Hcl) 180 Mg Tablet 180 Mg PO DAILY Vitals/I & O Vital Sign - Last 24 Hours 04/07/20 04/07/20 04/07/20 04/07/20 11:25 11:28 14:41 19:00 Temp 97.8 98.0 97.9 97.8 98.0 97.9 Pulse 88 122 112 96 Resp 20 18 18 B/P (MAP) 130/74 (92) 130/74 112/63 (79) 118/63 (81) Pulse Ox 94 96 93 O2 Delivery Room Air Room Air Room Air 04/07/20 04/07/20 04/08/20 04/08/20 19:45 22:58 03:07 07:00 Temp 98.2 98.1 97.8 98.2 98.1 97.8 Pulse 105 103 109 Resp 18 18 18 B/P (MAP) 108/63 (78) 129/79 (96) 126/61 (82) Pulse Ox 95 96 93 O2 Delivery Room Air Room Air Room Air Room Air Intake and Output 04/07/20 04/07/20 04/08/20 15:00 23:00 07:00 Intake Total 180 ml 1210 ml 200 ml Output Total 600 ml 350 ml 100 ml Balance -420 ml 860 ml 100 ml Nutrition Consultation Dietary Evaluation: Recommendations by RD: Dietary education by RD, Increase Calorie Intake, Protein supplementation Comments: Continue w/cardiac diet, add ground meats per RN request (pt missing teeth) REC Ensure (vanilla) w/dinner Expected Outcomes/Goals: PO intake to meet >75% est needs Interpretation of weight loss: >7.5% in 3 months Malnutrition Findings: Food and Nutrition Intake (Sev: <50% est energy req 5days Weight Status: Obese GIORGI GRIJALVA MD April 08, 2020 10:07
[2020-04-08 11:00] VITALS: BP 93/48
[2020-04-08] MEDS ORDERED: METOPROLOL SUCC 24HR ER 25 MG TAB.ER.24H. PO SCH (11:00)
--- NOTE | 2020-04-08 11:37 | PDOC ---
ANDIE UGALDE MASH TUB COOKER OPERATOR 04/08/20 1137: CARDIO Progress Notes Date and Time Date of Service 04/08/2020 Time of Evaluation 1040 Subjective Subjective: No Chest Pain, No shortness of breath, No Palpitations Vitals Vitals Vital Signs Date Time Temp Pulse Resp B/P (MAP) Pulse Ox O2 Delivery O2 Flow Rate FiO2 04/08/20 07:50 Room Air 04/08/20 07:00 97.8 109 18 126/61 (82) 93 97.8 Weight Weight [ ] Input and Output Intake and Output Intake and Output 04/08/20 07:00 Intake Total 1590 ml Output Total 1050 ml Balance 540 ml Intake Oral 1540 ml IV Total 50 ml Output Urine Total 1050 ml # Bowel Movements 5 Laboratory Labs Laboratory Tests Test 04/08/20 05:05 White Blood Count 5.2 x10^3/uL (4.0-11.0) Red Blood Count 4.34 x10^6/uL (3.50-5.40) Hemoglobin 12.2 g/dL (12.0-15.5) Hematocrit 37.8 % (36.0-47.0) Mean Corpuscular Volume 87 fL (79-100) Mean Corpuscular Hemoglobin 28 pg (25-35) Mean Corpuscular Hemoglobin Concent 32 g/dL (31-37) Red Cell Distribution Width 17.4 % (11.5-14.5) Platelet Count 190 x10^3/uL (140-400) Neutrophils (%) (Auto) 57 % (31-73) Lymphocytes (%) (Auto) 29 % (24-48) Monocytes (%) (Auto) 9 % (0-9) Eosinophils (%) (Auto) 5 % (0-3) Basophils (%) (Auto) 1 % (0-3) Neutrophils # (Auto) 2.9 x10^3/uL (1.8-7.7) Lymphocytes # (Auto) 1.5 x10^3/uL (1.0-4.8) Monocytes # (Auto) 0.4 x10^3/uL (0.0-1.1) Eosinophils # (Auto) 0.2 x10^3/uL (0.0-0.7) Basophils # (Auto) 0.0 x10^3/uL (0.0-0.2) Platelet Estimate Adequate (ADEQUATE) Anisocytosis Present Sodium Level 142 mmol/L (136-145) Potassium Level 3.6 mmol/L (3.5-5.1) Chloride Level 108 mmol/L (98-107) Carbon Dioxide Level 30 mmol/L (21-32) Anion Gap 4 (6-14) Blood Urea Nitrogen 13 mg/dL (7-20) Creatinine 0.7 mg/dL (0.6-1.0) Estimated GFR (Cockcroft-Gault) 80.7 BUN/Creatinine Ratio 19 (6-20) Glucose Level 85 mg/dL (70-99) Calcium Level 7.2 mg/dL (8.5-10.1) Total Bilirubin 0.3 mg/dL (0.2-1.0) Aspartate Amino Transf (AST/SGOT) 29 U/L (15-37) Alanine Aminotransferase (ALT/SGPT) 18 U/L (14-59) Alkaline Phosphatase 93 U/L (46-116) Total Protein 4.0 g/dL (6.4-8.2) Albumin 1.2 g/dL (3.4-5.0) Albumin/Globulin Ratio 0.4 (1.0-1.7) Physical Exam HEENT: Neck Supple W Full Motion Chest: Symmetric LUNGS: Other (diminished bases) Heart: irregularly irregular (AFIB) Extremities: Other (3+ bilateral LE pitting edema) Neurology: alert, follow commands, confused Assessment Assessment 1. AFIB RVR: rate better controlled with digoxin. EF 50% no significant valvular disease. 2. Suspect chronic diastolic CHF: appears compensated but with large LE edema 3. Hypomagnesemia 4. Dementia: on aricept and namenda 5. UTI: per PCP 6. LE Lymphedema with protein malnutrition. neg DVTR per doppler Recommendations 1. BP normotensive. Will start on 25 mg toprol and note response. Dig is an option if BP remains low marginal pending Mg and K trend. BMP and Mg today 2. Baby ECASA for stroke prevention. Likely has been having AFIB in the last 2 weeks. Likely poor candidate for anticoagulation with high risk for falls and significant issues with anemia in the past and GI bleed with transfusions. 3. Legs remains edematous but no weeping. Will need PO diuretic if BP is adequate otherwise hypoalbuminemia is contributing. Elevate legs and will consult lymphedema specialist. DONNA AKBAR MD 04/08/20 1913: CARDIO Progress Notes Assessment Assessment Patient seen and examined. Agree with DEPARTMENT STORE MANAGER's assessment and plan. AF rate better controlled Patient is poor cand for terminologist AC Chr diast HF compensated Continue current med regimen ANDIE UGALDE APRN April 08, 2020 11:37 DONNA AKBAR MD April 08, 2020 19:13
[2020-04-08] MEDS: ENOXAPARIN 40 MG/0.4 ML SYRINGE. SQ SCH (13:54)
[2020-04-08 15:00] VITALS: BP 102/59
[2020-04-08] MEDS ORDERED: DIGOXIN 125 MCG TABLET. PO ONE (15:15)
--- NOTE | 2020-04-08 15:31 | NUR ---
SS following up with discharge planning. SS reviewed pt chart and discussed with pt RN. Pt is currently on room air. Pt was current with [facility], ; fax [phone]. Referral was phoned and faxed to [facility]. SS will continue to follow for discharge planning.
[2020-04-08] MEDS: cefTRIAXone IV Push 1 GM VIAL. IVP SCH (16:42)
[2020-04-08 18:36] VITALS: BP 104/59
[2020-04-08] MEDS: MONTELUKAST SODIUM 10 MG TABLET. PO SCH (21:55)
[2020-04-08] MEDS: DONEPEZIL HCL 10 MG TABLET. PO SCH (21:55)
[2020-04-08] MEDS: LACTOBACILLUS RHAMNOSUS GG 1 CAPSULE. PO SCH (21:55)
[2020-04-08 23:14] VITALS: BP 126/58
[2020-04-09] MEDS ORDERED: DIGOXIN IV 500 MCG/2 ML AMPUL. IV ONE (00:30)
[2020-04-09 03:00] VITALS: BP 120/81
[2020-04-09 07:00] VITALS: BP 118/65
[2020-04-09] MEDS: CYANOCOBALAMIN (VITAMIN B-12) 1,000 MCG TABLET. PO SCH (08:52)
[2020-04-09] MEDS: ASPIRIN ENTERIC COATED 81 MG TABLET.DR. PO SCH (08:52)
[2020-04-09] MEDS: CETIRIZINE HCL 10 MG TABLET. PO SCH (08:53)
[2020-04-09] MEDS: MUPIROCIN 2 % NASAL OINTMENT 22GM TUBE. TP SCH ×2 (08:53→20:33)
[2020-04-09] MEDS: FLUoxetine HCL 20 MG CAPSULE PO SCH (08:53)
[2020-04-09] MEDS: MEMANTINE 10 MG TABLET. PO SCH ×2 (08:53→20:29)
[2020-04-09] MEDS: FLUTICASONE 50MCG/NASAL SPRAY 16GM BOTTLE. NS SCH (08:53)
[2020-04-09] MEDS: LACTOBACILLUS RHAMNOSUS GG 1 CAPSULE. PO SCH ×2 (08:53→20:27)
[2020-04-09] MEDS: DIGOXIN 125 MCG TABLET. PO SCH (08:54)
--- NOTE | 2020-04-09 10:30 | PDOC ---
PROGRESS NOTES History of Present Illness History of Present Illness VTE Prophylaxis Ordered VTE Prophylaxis Devices: No VTE Pharmacological Prophylaxi: Yes impression Assessment/Plan Atrial fibrillation with rapid ventricular response Hypokalemia Peripheral lower extremity edema LE Lymphedema with protein malnutrition. neg DVTR per doppler Elevated BNP History of dementia History of anemia severe protein-caloric malnutrition uti Plan cardiology evaluation start on 25 mg toprol echocardiogram LE Lymphedema with protein malnutrition. neg DVTR per doppler Chads Vasc score by her age will probably require anticoagulation, Baby ECASA for stroke prevention Replace electrolytes, MG Check labs in the a.m. Further recommendations based on clinical course DVT prophylaxis with Lovenox OT for lymphedema nutrition consult IV ROCEPHIN PT/OT D/W OT AND RN d/w RN Vitals Vitals Vital Signs Date Time Temp Pulse Resp B/P (MAP) Pulse Ox O2 Delivery O2 Flow Rate FiO2 04/09/20 08:54 128 04/09/20 07:00 98.0 20 118/65 (82) 92 Room Air 98.0 Physical Exam General: Alert, Cooperative, No acute distress, Other (Ox1) Heart: Other (irrr) Lungs: Clear Abdomen: Normal bowel sounds, Soft, No tenderness, Other (obese) Extremities: No cyanosis Skin: No breakdown Assessment and Plan Assessmemt and Plan Problems Medical Problems: (1) Afib Status: Acute (2) CHF (congestive heart failure) Status: Acute (3) Hypokalemia Status: Acute Comment Review of Relevant I have reviewed the following items getachew (where applicable) has been applied. Labs Laboratory Tests Test 04/08/20 05:05 White Blood Count 5.2 x10^3/uL (4.0-11.0) Red Blood Count 4.34 x10^6/uL (3.50-5.40) Hemoglobin 12.2 g/dL (12.0-15.5) Hematocrit 37.8 % (36.0-47.0) Mean Corpuscular Volume 87 fL (79-100) Mean Corpuscular Hemoglobin 28 pg (25-35) Mean Corpuscular Hemoglobin Concent 32 g/dL (31-37) Red Cell Distribution Width 17.4 % (11.5-14.5) Platelet Count 190 x10^3/uL (140-400) Neutrophils (%) (Auto) 57 % (31-73) Lymphocytes (%) (Auto) 29 % (24-48) Monocytes (%) (Auto) 9 % (0-9) Eosinophils (%) (Auto) 5 % (0-3) Basophils (%) (Auto) 1 % (0-3) Neutrophils # (Auto) 2.9 x10^3/uL (1.8-7.7) Lymphocytes # (Auto) 1.5 x10^3/uL (1.0-4.8) Monocytes # (Auto) 0.4 x10^3/uL (0.0-1.1) Eosinophils # (Auto) 0.2 x10^3/uL (0.0-0.7) Basophils # (Auto) 0.0 x10^3/uL (0.0-0.2) Platelet Estimate Adequate (ADEQUATE) Anisocytosis Present Sodium Level 142 mmol/L (136-145) Potassium Level 3.6 mmol/L (3.5-5.1) Chloride Level 108 mmol/L (98-107) Carbon Dioxide Level 30 mmol/L (21-32) Anion Gap 4 (6-14) Blood Urea Nitrogen 13 mg/dL (7-20) Creatinine 0.7 mg/dL (0.6-1.0) Estimated GFR (Cockcroft-Gault) 80.7 BUN/Creatinine Ratio 19 (6-20) Glucose Level 85 mg/dL (70-99) Calcium Level 7.2 mg/dL (8.5-10.1) Magnesium Level 1.9 mg/dL (1.8-2.4) Total Bilirubin 0.3 mg/dL (0.2-1.0) Aspartate Amino Transf (AST/SGOT) 29 U/L (15-37) Alanine Aminotransferase (ALT/SGPT) 18 U/L (14-59) Alkaline Phosphatase 93 U/L (46-116) Total Protein 4.0 g/dL (6.4-8.2) Albumin 1.2 g/dL (3.4-5.0) Albumin/Globulin Ratio 0.4 (1.0-1.7) Medications Current Medications Potassium Bicarbonate (Potassium Effervescent Tablet) 40 meq 1X ONCE PO Last administered on 04/06/20at 11:06; Start 04/06/20 at 11:00; Stop 04/06/20 at 11:02; Status DC Potassium Chloride/Water 100 ml @ 100 mls/hr Q1H IV Last administered on 04/06/20at 13:47; Start 04/06/20 at 11:00; Stop 04/06/20 at 14:59; Status DC Ondansetron HCl (Zofran) 4 mg PRN Q4HRS PRN IV NAUSEA/VOMITING; Start 04/06/20 at 13:00 Zolpidem Tartrate (Ambien) 5 mg PRN QHS PRN PO INSOMNIA Last administered on 04/07/20at 21:13; Start 04/06/20 at 13:00 Acetaminophen (Tylenol) 650 mg PRN Q4HRS PRN PO TEMP OVER 100.4F OR MILD PAIN; Start 04/06/20 at 13:00 Docusate Sodium (Colace) 100 mg PRN BID PRN PO HARD STOOLS; Start 04/06/20 at 13:00 Albuterol Sulfate (Ventolin Neb Soln) 2.5 mg PRN Q4HRS PRN NEB SHORTNESS OF BREATH; Start 04/06/20 at 13:00 Guaifenesin (Robitussin) 200 mg PRN Q4HRS PRN PO COUGH; Start 04/06/20 at 13:00 Enoxaparin Sodium (Lovenox 40mg Syringe) 40 mg Q24H SQ Last administered on 04/08/20 13:54; Start 04/06/20 at 13:00 Cyanocobalamin (Vitamin B-12) 1,000 mcg DAILY PO Last administered on 04/09/20 08:52; Start 04/06/20 at 14:00 Fluticasone Propionate (Flonase) 2 spray DAILY NS Last administered on 04/09/20 08:53; Start 04/07/20 at 09:00 Memantine (Namenda) 10 mg BID PO Last administered on 04/09/20 08:53; Start 04/06/20 at 21:00 Montelukast Sodium (Singulair) 10 mg HS PO Last administered on 04/08/20at 21:55; Start 04/06/20 at 21:00 Mupirocin (Bactroban) 1 mine BID TP Last administered on 04/09/20 08:53; Start 04/06/20 at 21:00 Donepezil HCl (Aricept) 10 mg QHS PO Last administered on 04/08/20 21:55; Start 04/06/20 at 21:00 Cetirizine HCl (ZyrTEC) 10 mg DAILY PO Last administered on 04/09/20 08:53; Start 04/06/20 at 14:00 Fluoxetine HCl (PROzac) 40 mg DAILY PO Last administered on 04/09/20 08:53; Start 04/06/20 at 14:00 Potassium Chloride (Klor-Con) 40 meq Q2H PO Last administered on 04/06/20at 13:33; Start 04/06/20 at 13:00; Stop 04/06/20 at 13:39; Status DC Metoprolol Tartrate (Lopressor Vial) 5 mg 1X ONCE IVP Last administered on 04/06/20 13:46; Start 04/06/20 at 13:45; Stop 04/06/20 at 13:46; Status DC Aspirin (Ecotrin) 81 mg DAILYWBKFT PO Last administered on 04/09/20at 08:52; Start 04/06/20 at 15:15 Potassium Chloride (Klor-Con) 20 meq 1X ONCE PO Last administered on 04/06/20at 17:19; Start 04/06/20 at 16:15; Stop 04/06/20 at 16:17; Status DC Digoxin (Lanoxin) 250 mcg 1X ONCE IV Last administered on 04/06/20at 18:24; Start 04/06/20 at 18:15; Stop 04/06/20 at 18:16; Status DC Ceftriaxone Sodium (Rocephin) 1 gm Q24H IVP Last administered on 04/08/20at 16:42; Start 04/06/20 at 18:30 Digoxin (Lanoxin) 250 mcg 1X ONCE IV Last administered on 04/07/20at 11:28; Start 04/07/20 at 10:45; Stop 04/07/20 at 10:46; Status DC Magnesium Sulfate 50 ml @ 25 mls/hr 1X ONCE IV Last administered on 04/07/20at 11:28; Start 04/07/20 at 11:00; Stop 04/07/20 at 12:59; Status DC Metoprolol Succinate (Toprol Xl) 25 mg DAILY PO ; Start 04/08/20 at 11:00; Stop 04/08/20 at 14:58; Status DC Lactobacillus Rhamnosus (Culturelle) 1 cap BID PO Last administered on 04/09/20at 08:53; Start 04/08/20 at 21:00 Digoxin (Lanoxin) 125 mcg DAILY PO Last administered on 04/09/20at 08:54; Start 04/09/20 at 09:00 Digoxin (Lanoxin) 125 mcg 1X ONCE PO Last administered on 04/08/20at 15:32; Start 04/08/20 at 15:15; Stop 04/08/20 at 15:16; Status DC Digoxin (Lanoxin) 250 mcg 1X ONCE IV Last administered on 04/09/20at 00:12; Start 04/09/20 at 00:30; Stop 04/09/20 at 00:31; Status DC Lorazepam (Ativan Inj) 0.5 mg 1X ONCE IVP Last administered on 04/09/20at 00:13; Start 04/09/20 at 00:30; Stop 04/09/20 at 00:31; Status DC Active Scripts Active Reported Proair Hfa Inhaler (Albuterol Sulfate) 8.5 Gm Hfa.aer.ad 2 Puff IH PRN Q4-6HRS PRN 21 Days Mupirocin Ointment (Mupirocin) 22 Gm Oint...g. 1 Mine TP BID B-12 (Cyanocobalamin (Vitamin B-12)) 1,000 Mcg Tablet 1 Tab PO DAILY 30 Days Namenda (Memantine Hcl) 10 Mg Tablet 1 Tab PO BID Donepezil Hcl 10 Mg Tab.rapdis 10 Mg PO HS Fluoxetine Hcl 40 Mg Capsule 1 Cap PO DAILY Fluticasone Propionate Nasal [place] (Fluticasone Propionate) 16 Gm [place].susp 2 [place] NS DAILY Montelukast Sodium Tablet (Montelukast Sodium) 10 Mg Tablet 10 Mg PO HS Siria Allergy (Fexofenadine Hcl) 180 Mg Tablet 180 Mg PO DAILY Vitals/I & O Vital Sign - Last 24 Hours 04/08/20 04/08/20 04/08/20 04/08/20 11:00 11:00 15:00 15:32 Temp 97.8 97.8 97.8 97.8 Pulse 110 110 95 105 Resp 18 18 B/P (MAP) 93/48 93/48 (63) 102/59 (73) 102/59 Pulse Ox 100 93 O2 Delivery Room Air Room Air 04/08/20 04/08/20 04/08/20 04/09/20 18:36 20:00 23:14 00:12 Temp 96.8 98.0 96.8 98.0 Pulse 116 122 140 Resp 20 20 B/P (MAP) 104/59 (74) 126/58 (80) 126/58 Pulse Ox 95 93 O2 Delivery Room Air Room Air Room Air 04/09/20 04/09/20 04/09/20 03:00 07:00 08:54 Temp 97.6 98.0 97.6 98.0 Pulse 132 97 128 Resp 20 20 B/P (MAP) 120/81 (94) 118/65 (82) Pulse Ox 93 92 O2 Delivery Room Air Room Air Intake and Output 04/08/20 04/08/20 04/09/20 15:00 23:00 07:00 Intake Total 360 ml 200 ml 50 ml Output Total 0 ml 100 ml Balance 360 ml 200 ml -50 ml Nutrition Consultation Dietary Evaluation: Recommendations by RD: Dietary education by RD, Increase Calorie Intake, Protein supplementation Comments: Continue w/cardiac diet, add ground meats per RN request (pt missing teeth) REC Ensure (vanilla) w/dinner Expected Outcomes/Goals: PO intake to meet >75% est needs Interpretation of weight loss: >7.5% in 3 months Malnutrition Findings: Food and Nutrition Intake (Sev: <50% est energy req 5days Weight Status: Obese GIORGI GRIJALVA MD April 09, 2020 10:30
[2020-04-09 11:00] VITALS: BP 117/60
--- NOTE | 2020-04-09 13:46 | PDOC ---
PROGRESS NOTES Subjective Subjective Patient seen and examined Objective Objective Vital Signs Date Time Temp Pulse Resp B/P (MAP) Pulse Ox O2 Delivery O2 Flow Rate FiO2 04/09/20 11:00 97.4 110 20 117/60 (79) 91 Room Air 97.4 Intake and Output 04/09/20 07:00 Intake Total 610 ml Output Total 100 ml Balance 510 ml Intake Oral 610 ml Output Urine Total 100 ml # Voids 4 # Bowel Movements 1 Physical Exam Abdomen: Normal bowel sounds Heart: Other (Irregularly irregular) General: No acute distress Lungs: Clear to auscultation Assessment Assessment Problems Medical Problems: (1) Afib Status: Acute (2) CHF (congestive heart failure) Status: Acute (3) Hypokalemia Status: Acute AFIB RVR: rate better controlled. EF 50% no significant valvular disease. Continue beta-blockers and digoxin. Suspect chronic diastolic CHF: appears compensated but with large LE edema Dementia: on aricept and namenda UTI: per PCP LE Lymphedema with protein malnutrition. neg DVTR per doppler Comment Review of Relevant I have reviewed the following items getachew (where applicable) has been applied. Labs Laboratory Tests Test 04/08/20 05:05 White Blood Count 5.2 x10^3/uL (4.0-11.0) Red Blood Count 4.34 x10^6/uL (3.50-5.40) Hemoglobin 12.2 g/dL (12.0-15.5) Hematocrit 37.8 % (36.0-47.0) Mean Corpuscular Volume 87 fL (79-100) Mean Corpuscular Hemoglobin 28 pg (25-35) Mean Corpuscular Hemoglobin Concent 32 g/dL (31-37) Red Cell Distribution Width 17.4 % (11.5-14.5) Platelet Count 190 x10^3/uL (140-400) Neutrophils (%) (Auto) 57 % (31-73) Lymphocytes (%) (Auto) 29 % (24-48) Monocytes (%) (Auto) 9 % (0-9) Eosinophils (%) (Auto) 5 % (0-3) Basophils (%) (Auto) 1 % (0-3) Neutrophils # (Auto) 2.9 x10^3/uL (1.8-7.7) Lymphocytes # (Auto) 1.5 x10^3/uL (1.0-4.8) Monocytes # (Auto) 0.4 x10^3/uL (0.0-1.1) Eosinophils # (Auto) 0.2 x10^3/uL (0.0-0.7) Basophils # (Auto) 0.0 x10^3/uL (0.0-0.2) Platelet Estimate Adequate (ADEQUATE) Anisocytosis Present Sodium Level 142 mmol/L (136-145) Potassium Level 3.6 mmol/L (3.5-5.1) Chloride Level 108 mmol/L (98-107) Carbon Dioxide Level 30 mmol/L (21-32) Anion Gap 4 (6-14) Blood Urea Nitrogen 13 mg/dL (7-20) Creatinine 0.7 mg/dL (0.6-1.0) Estimated GFR (Cockcroft-Gault) 80.7 BUN/Creatinine Ratio 19 (6-20) Glucose Level 85 mg/dL (70-99) Calcium Level 7.2 mg/dL (8.5-10.1) Magnesium Level 1.9 mg/dL (1.8-2.4) Total Bilirubin 0.3 mg/dL (0.2-1.0) Aspartate Amino Transf (AST/SGOT) 29 U/L (15-37) Alanine Aminotransferase (ALT/SGPT) 18 U/L (14-59) Alkaline Phosphatase 93 U/L (46-116) Total Protein 4.0 g/dL (6.4-8.2) Albumin 1.2 g/dL (3.4-5.0) Albumin/Globulin Ratio 0.4 (1.0-1.7) Medications Current Medications Potassium Bicarbonate (Potassium Effervescent Tablet) 40 meq 1X ONCE PO Last administered on 04/06/20at 11:06; Start 04/06/20 at 11:00; Stop 04/06/20 at 11:02; Status DC Potassium Chloride/Water 100 ml @ 100 mls/hr Q1H IV Last administered on 04/06/20at 13:47; Start 04/06/20 at 11:00; Stop 04/06/20 at 14:59; Status DC Ondansetron HCl (Zofran) 4 mg PRN Q4HRS PRN IV NAUSEA/VOMITING; Start 04/06/20 at 13:00 Zolpidem Tartrate (Ambien) 5 mg PRN QHS PRN PO INSOMNIA Last administered on 04/07/20 21:13; Start 04/06/20 at 13:00 Acetaminophen (Tylenol) 650 mg PRN Q4HRS PRN PO TEMP OVER 100.4F OR MILD PAIN; Start 04/06/20 at 13:00 Docusate Sodium (Colace) 100 mg PRN BID PRN PO HARD STOOLS; Start 04/06/20 at 13:00 Albuterol Sulfate (Ventolin Neb Soln) 2.5 mg PRN Q4HRS PRN NEB SHORTNESS OF BREATH; Start 04/06/20 at 13:00 Guaifenesin (Robitussin) 200 mg PRN Q4HRS PRN PO COUGH; Start 04/06/20 at 13:00 Enoxaparin Sodium (Lovenox 40mg Syringe) 40 mg Q24H SQ Last administered on 04/08/20at 13:54; Start 04/06/20 at 13:00 Cyanocobalamin (Vitamin B-12) 1,000 mcg DAILY PO Last administered on 04/09/20 08:52; Start 04/06/20 at 14:00 Fluticasone Propionate (Flonase) 2 spray DAILY NS Last administered on 04/09/20 08:53; Start 04/07/20 at 09:00 Memantine (Namenda) 10 mg BID PO Last administered on 04/09/20 08:53; Start 04/06/20 at 21:00 Montelukast Sodium (Singulair) 10 mg HS PO Last administered on 04/08/20 21:55; Start 04/06/20 at 21:00 Mupirocin (Bactroban) 1 mine BID TP Last administered on 04/09/20 08:53; Start 04/06/20 at 21:00 Donepezil HCl (Aricept) 10 mg QHS PO Last administered on 04/08/20 21:55; Start 04/06/20 at 21:00 Cetirizine HCl (ZyrTEC) 10 mg DAILY PO Last administered on 04/09/20 08:53; Start 04/06/20 at 14:00 Fluoxetine HCl (PROzac) 40 mg DAILY PO Last administered on 5/23/20at 08:53; Start 04/06/20 at 14:00 Potassium Chloride (Klor-Con) 40 meq Q2H PO Last administered on 04/06/20at 13 :33; Start 04/06/20 at 13:00; Stop 04/06/20 at 13:39; Status DC Metoprolol Tartrate (Lopressor Vial) 5 mg 1X ONCE IVP Last administered on 04/06/20at 13:46; Start 04/06/20 at 13:45; Stop 04/06/20 at 13:46; Status DC Aspirin (Ecotrin) 81 mg DAILYWBKFT PO Last administered on 04/09/20at 08:52; Start 04/06/20 at 15:15 Potassium Chloride (Klor-Con) 20 meq 1X ONCE PO Last administered on 04/06/20at 17:19; Start 04/06/20 at 16:15; Stop 04/06/20 at 16:17; Status DC Digoxin (Lanoxin) 250 mcg 1X ONCE IV Last administered on 04/06/20at 18:24; Start 04/06/20 at 18:15; Stop 04/06/20 at 18:16; Status DC Ceftriaxone Sodium (Rocephin) 1 gm Q24H IVP Last administered on 04/08/20at 16:42; Start 04/06/20 at 18:30; Stop 04/09/20 at 12:44; Status DC Digoxin (Lanoxin) 250 mcg 1X ONCE IV Last administered on 04/07/20at 11:28; Start 04/07/20 at 10:45; Stop 04/07/20 at 10:46; Status DC Magnesium Sulfate 50 ml @ 25 mls/hr 1X ONCE IV Last administered on 04/07/20at 11:28; Start 04/07/20 at 11:00; Stop 04/07/20 at 12:59; Status DC Metoprolol Succinate (Toprol Xl) 25 mg DAILY PO ; Start 04/08/20 at 11:00; Stop 04/08/20 at 14:58; Status DC Lactobacillus Rhamnosus (Culturelle) 1 cap BID PO Last administered on 04/09/20at 08:53; Start 04/08/20 at 21:00 Digoxin (Lanoxin) 125 mcg DAILY PO Last administered on 04/09/20at 08:54; Start 5/23/20 at 09:00 Digoxin (Lanoxin) 125 mcg 1X ONCE PO Last administered on 04/08/20at 15:32; Start 04/08/20 at 15:15; Stop 04/08/20 at 15:16; Status DC Digoxin (Lanoxin) 250 mcg 1X ONCE IV Last administered on 04/09/20at 00:12; Start 04/09/20 at 00:30; Stop 04/09/20 at 00:31; Status DC Lorazepam (Ativan Inj) 0.5 mg 1X ONCE IVP Last administered on 04/09/20at 00:13; Start 04/09/20 at 00:30; Stop 04/09/20 at 00:31; Status DC Cefdinir (Omnicef) 300 mg BID PO ; Start 04/09/20 at 21:00 Active Scripts Active Reported Proair Hfa Inhaler (Albuterol Sulfate) 8.5 Gm Hfa.aer.ad 2 Puff IH PRN Q4-6HRS PRN 21 Days Mupirocin Ointment (Mupirocin) 22 Gm Oint...g. 1 Mine TP BID B-12 (Cyanocobalamin (Vitamin B-12)) 1,000 Mcg Tablet 1 Tab PO DAILY 30 Days Namenda (Memantine Hcl) 10 Mg Tablet 1 Tab PO BID Donepezil Hcl 10 Mg Tab.rapdis 10 Mg PO HS Fluoxetine Hcl 40 Mg Capsule 1 Cap PO DAILY Fluticasone Propionate Nasal [place] (Fluticasone Propionate) 16 Gm [place].susp 2 [place] NS DAILY Montelukast Sodium Tablet (Montelukast Sodium) 10 Mg Tablet 10 Mg PO HS Siria Allergy (Fexofenadine Hcl) 180 Mg Tablet 180 Mg PO DAILY Vitals/I & O Vital Sign - Last 24 Hours 04/08/20 04/08/20 04/08/20 04/08/20 15:00 15:32 18:36 20:00 Temp 97.8 96.8 97.8 96.8 Pulse 95 105 116 Resp 18 20 B/P (MAP) 102/59 (73) 102/59 104/59 (74) Pulse Ox 93 95 O2 Delivery Room Air Room Air Room Air 04/08/20 04/09/20 04/09/20 04/09/20 23:14 00:12 03:00 07:00 Temp 98.0 97.6 98.0 98.0 97.6 98.0 Pulse 122 140 132 97 Resp 20 20 20 B/P (MAP) 126/58 (80) 126/58 120/81 (94) 118/65 (82) Pulse Ox 93 93 92 O2 Delivery Room Air Room Air Room Air 04/09/20 04/09/20 04/09/20 08:00 08:54 11:00 Temp 97.4 97.4 Pulse 128 110 Resp 20 B/P (MAP) 117/60 (79) Pulse Ox 91 O2 Delivery Room Air Room Air Intake and Output 04/08/20 04/08/20 04/09/20 15:00 23:00 07:00 Intake Total 360 ml 200 ml 50 ml Output Total 0 ml 100 ml Balance 360 ml 200 ml -50 ml Nutrition Consultation Dietary Evaluation: Recommendations by RD: Dietary education by RD, Increase Calorie Intake, Protein supplementation Comments: Continue w/cardiac diet, add ground meats per RN request (pt missing teeth) REC Ensure (vanilla) w/dinner Expected Outcomes/Goals: PO intake to meet >75% est needs Interpretation of weight loss: >7.5% in 3 months Malnutrition Findings: Food and Nutrition Intake (Sev: <50% est energy req 5days Weight Status: Obese NELLY GORE MD April 09, 2020 13:46
[2020-04-09 15:00] VITALS: BP 121/55
[2020-04-09] MEDS: ENOXAPARIN 40 MG/0.4 ML SYRINGE. SQ SCH (17:45)
[2020-04-09 19:30] VITALS: BP 94/49
[2020-04-09] MEDS: DONEPEZIL HCL 10 MG TABLET. PO SCH (20:27)
[2020-04-09] MEDS: CEFDINIR 300 MG CAPSULE PO SCH (20:27)
[2020-04-09] MEDS: MONTELUKAST SODIUM 10 MG TABLET. PO SCH (20:27)
[2020-04-09] MEDS: ZOLPIDEM 5 MG TABLET. PO PRN (20:27)
[2020-04-09 23:37] VITALS: BP 113/45
[2020-04-10 03:00] VITALS: BP 114/67
[2020-04-10 07:00] VITALS: BP 122/56
[2020-04-10] MEDS: FLUTICASONE 50MCG/NASAL SPRAY 16GM BOTTLE. NS SCH (09:31)
[2020-04-10] MEDS: CETIRIZINE HCL 10 MG TABLET. PO SCH (09:33)
[2020-04-10] MEDS: ASPIRIN ENTERIC COATED 81 MG TABLET.DR. PO SCH (09:33)
[2020-04-10] MEDS: FLUoxetine HCL 20 MG CAPSULE PO SCH (09:33)
[2020-04-10] MEDS: CYANOCOBALAMIN (VITAMIN B-12) 1,000 MCG TABLET. PO SCH (09:33)
[2020-04-10] MEDS: MUPIROCIN 2 % NASAL OINTMENT 22GM TUBE. TP SCH ×2 (09:33→20:54)
[2020-04-10] MEDS: MEMANTINE 10 MG TABLET. PO SCH ×2 (09:33→20:54)
[2020-04-10] MEDS: DIGOXIN 125 MCG TABLET. PO SCH (09:34)
[2020-04-10] MEDS: CEFDINIR 300 MG CAPSULE PO SCH ×2 (09:34→20:54)
[2020-04-10] MEDS: LACTOBACILLUS RHAMNOSUS GG 1 CAPSULE. PO SCH ×2 (09:34→20:54)
--- NOTE | 2020-04-10 10:04 | PDOC ---
PROGRESS NOTES History of Present Illness History of Present Illness VTE Prophylaxis Ordered VTE Prophylaxis Devices: No VTE Pharmacological Prophylaxi: Yes impression Assessment/Plan Atrial fibrillation with rapid ventricular response Hypokalemia Peripheral lower extremity edema LE Lymphedema with protein malnutrition. neg DVTR per doppler Elevated BNP History of dementia History of anemia severe protein-caloric malnutrition uti Plan cardiology evaluation continue 25 mg toprol echocardiogram LE Lymphedema with protein malnutrition. neg DVTR per doppler Chads Vasc score by her age will probably require anticoagulation, Baby ECASA for stroke prevention Replace electrolytes, MG Check labs in the a.m. Further recommendations based on clinical course DVT prophylaxis with Lovenox OT for lymphedema nutrition consult omnicef 300mg po bid PT/OT D/W OT AND RN d/w food preparation kitchen aide Recommendations * Long-Term Unit Discharge Recommendation - DME * Rolling Walker needed * in order to complete ADLs * and ambulation safely Vitals Vitals Vital Signs Date Time Temp Pulse Resp B/P (MAP) Pulse Ox O2 Delivery O2 Flow Rate FiO2 04/10/20 09:34 94 04/10/20 07:00 98.2 18 122/56 (78) 91 Room Air 98.2 Physical Exam General: Alert, Cooperative, No acute distress Heart: Other (Irregularly irregular) Lungs: Clear Abdomen: Normal bowel sounds, Soft Extremities: No cyanosis Skin: No breakdown Assessment and Plan Assessmemt and Plan Problems Medical Problems: (1) Afib Status: Acute (2) CHF (congestive heart failure) Status: Acute (3) Hypokalemia Status: Acute * Independent Mobility devices used prior to admission * Roller Walker * Cane Other Prior Level of Function Information * Edema history: patient reports swelling started 2 weeks ago; she denies issues with swelling previously and has not used compression garments in the past. Pt reports that Precious help her when needed. Pt normally able to climb steps and fix simple meals and snacks. Pt normally able to take herself to the bathroom. Other Precautions * fall risk Level of Consciousness * Alert Follows Direction * Simple Behavior * Cooperative Safety/Judgement * Tactile Cues Required * Decreased Safety * Cognition Deficit * Verbal Cues Required * Due to Medical Status * Decreased Insight * Due to Strength/ROM Defic * Problem Solving Deficits Coordination * Gross motor cood. decr. Activity Tolerance * Poor + Activity Tolerance/ Vitals * Resting rate: 110s HR elevated with ambulation fluctuating from 110s to 150s Patient denied SOAbut did request to return to chair. Sitting Balance * 3+ balances w/o UEs >30s. Standing Balance * 2 balances w/ both UEs PT PAIN COMMENTS * no reported pain Transfer Assistance Required * Min Assistance Transfer Type * Sit to Stand Transfer Assistive Device * Roller Walker Transfer Comments * verbal cues for hand placement and safe approach to chair. Pt labored pushing up from chair., Ambulation Assistance Required * Min Assistance Ambulation Assistive Device * Roller Walker Ambulation Distance * 30' Gait Impairments * Flexed Posture * Slow Mariam * Short Step Length * Decreased Foot Clearance Sitting Exercises * Ankle Pumps * Long Arc Quads * Marching Sitting Exercises Comments * 10 reps each active assisted; max verbal cues to stay on task/technique Learning Preferences * One-on-One Instruction Problem List (body system elements) * Impaired fnctnl mobility * Heart Rate * Edema * Strength * Balance * Knowledge-Body Mechanics * Knowledge-safe techniques Other Problems * Pt with limitations in strength, balance, safety, activity tolerance, coordiantion which limit pt indep with functional mobility. Recommend SNU at discharge to maximize functional indep to allow for safe return home. Pt/caregiver agrees with plan of care/goals * Yes Patient condition at conclusion of therapy * Pt in chair * Personal alarm on * Call light in reach * Phone in reach * PtIn no apparent distress * Pt denies further needs Communicated Patient Care With (Name, Title) * Lucia MCQUEEN Goal 1 - Bed Mobility Assistance Required * Independent Goal 1 Assessment * Appropriate - Continue Goal 2 - Transfers Assistance Required * Independent Goal 2 - Transfer Type * Sit to Stand Goal 2 Assessment * Appropriate - Continue Goal 3 - Ambulation Assistance Required * Independent Goal 3 - Ambulation Distance * 50' Goal 3 - Ambulation Device * Roller Walker Goal 3 Assessment * Appropriate - Continue Goal 4 - Stairs Assistance Required * Contact Guard Assist Goal 4 - Number of Stairs * 5-9 Goal 4 - Device on Stairs * Rail on Right Goal 4 Assessment * Appropriate - Continue Treatment Plan * Therapeutic Exercise * Bed Mobility Training * Transfer training * Gait Training * Dynamic Balance Training Frequency of Treatment Expected * 7 visits/week Duration of Treatment Expected * 2 weeks Discharge Recommendations * Long-Term Unit Discharge Recommendation - DME * Rolling Walker needed * in order to complete ADLs * and ambulation safely Comment Review of Relevant I have reviewed the following items getachew (where applicable) has been applied. Medications Current Medications Potassium Bicarbonate (Potassium Effervescent Tablet) 40 meq 1X ONCE PO Last administered on 04/06/20 11:06; Start 04/06/20 at 11:00; Stop 04/06/20 at 11:02; Status DC Potassium Chloride/Water 100 ml @ 100 mls/hr Q1H IV Last administered on 04/06/20 13:47; Start 04/06/20 at 11:00; Stop 04/06/20 at 14:59; Status DC Ondansetron HCl (Zofran) 4 mg PRN Q4HRS PRN IV NAUSEA/VOMITING; Start 04/06/20 at 13:00 Zolpidem Tartrate (Ambien) 5 mg PRN QHS PRN PO INSOMNIA Last administered on 04/09/20 20:27; Start 04/06/20 at 13:00 Acetaminophen (Tylenol) 650 mg PRN Q4HRS PRN PO TEMP OVER 100.4F OR MILD PAIN; Start 04/06/20 at 13:00 Docusate Sodium (Colace) 100 mg PRN BID PRN PO HARD STOOLS; Start 04/06/20 at 13:00 Albuterol Sulfate (Ventolin Neb Soln) 2.5 mg PRN Q4HRS PRN NEB SHORTNESS OF BREATH; Start 04/06/20 at 13:00 Guaifenesin (Robitussin) 200 mg PRN Q4HRS PRN PO COUGH; Start 04/06/20 at 13:00 Enoxaparin Sodium (Lovenox 40mg Syringe) 40 mg Q24H SQ Last administered on 04/09/20 17:45; Start 04/06/20 at 13:00 Cyanocobalamin (Vitamin B-12) 1,000 mcg DAILY PO Last administered on 04/10/20 09:33; Start 04/06/20 at 14:00 Fluticasone Propionate (Flonase) 2 spray DAILY NS Last administered on 04/10/20 t 09:31; Start 04/07/20 at 09:00 Memantine (Namenda) 10 mg BID PO Last administered on 04/10/20 09:33; Start 04/06/20 at 21:00 Montelukast Sodium (Singulair) 10 mg HS PO Last administered on 04/09/20 20:27; Start 04/06/20 at 21:00 Mupirocin (Bactroban) 1 mine BID TP Last administered on 04/10/20 09:33; Start 04/06/20 at 21:00 Donepezil HCl (Aricept) 10 mg QHS PO Last administered on 04/09/20 20:27; Start 04/06/20 at 21:00 Cetirizine HCl (ZyrTEC) 10 mg DAILY PO Last administered on 04/10/20 09:33; Start 04/06/20 at 14:00 Fluoxetine HCl (PROzac) 40 mg DAILY PO Last administered on 04/10/20 09:33; Start 04/06/20 at 14:00 Potassium Chloride (Klor-Con) 40 meq Q2H PO Last administered on 04/06/20 13:33; Start 04/06/20 at 13:00; Stop 04/06/20 at 13:39; Status DC Metoprolol Tartrate (Lopressor Vial) 5 mg 1X ONCE IVP Last administered on 04/06/20 13:46; Start 04/06/20 at 13:45; Stop 04/06/20 at 13:46; Status DC Aspirin (Ecotrin) 81 mg DAILYWBKFT PO Last administered on 04/10/20 09:33; Start 04/06/20 at 15:15 Potassium Chloride (Klor-Con) 20 meq 1X ONCE PO Last administered on 04/06/20 17:19; Start 04/06/20 at 16:15; Stop 04/06/20 at 16:17; Status DC Digoxin (Lanoxin) 250 mcg 1X ONCE IV Last administered on 04/06/20 18:24; Start 04/06/20 at 18:15; Stop 04/06/20 at 18:16; Status DC Ceftriaxone Sodium (Rocephin) 1 gm Q24H IVP Last administered on 04/08/20at 16:42; Start 04/06/20 at 18:30; Stop 04/09/20 at 12:44; Status DC Digoxin (Lanoxin) 250 mcg 1X ONCE IV Last administered on 04/07/20at 11:28; Start 04/07/20 at 10:45; Stop 04/07/20 at 10:46; Status DC Magnesium Sulfate 50 ml @ 25 mls/hr 1X ONCE IV Last administered on 04/07/20at 11:28; Start 04/07/20 at 11:00; Stop 04/07/20 at 12:59; Status DC Metoprolol Succinate (Toprol Xl) 25 mg DAILY PO ; Start 04/08/20 at 11:00; Stop 04/08/20 at 14:58; Status DC Lactobacillus Rhamnosus (Culturelle) 1 cap BID PO Last administered on 04/10/20at 09:34; Start 04/08/20 at 21:00 Digoxin (Lanoxin) 125 mcg DAILY PO Last administered on 04/10/20at 09:34; Start 04/09/20 at 09:00 Digoxin (Lanoxin) 125 mcg 1X ONCE PO Last administered on 04/08/20at 15:32; Start 04/08/20 at 15:15; Stop 04/08/20 at 15:16; Status DC Digoxin (Lanoxin) 250 mcg 1X ONCE IV Last administered on 04/09/20at 00:12; Start 04/09/20 at 00:30; Stop 04/09/20 at 00:31; Status DC Lorazepam (Ativan Inj) 0.5 mg 1X ONCE IVP Last administered on 04/09/20at 00:13; Start 04/09/20 at 00:30; Stop 04/09/20 at 00:31; Status DC Cefdinir (Omnicef) 300 mg BID PO Last administered on 04/10/20at 09:34; Start 04/09/20 at 21:00 Active Scripts Active Reported Proair Hfa Inhaler (Albuterol Sulfate) 8.5 Gm Hfa.aer.ad 2 Puff IH PRN Q4-6HRS PRN 21 Days Mupirocin Ointment (Mupirocin) 22 Gm Oint...g. 1 Mine TP BID B-12 (Cyanocobalamin (Vitamin B-12)) 1,000 Mcg Tablet 1 Tab PO DAILY 30 Days Namenda (Memantine Hcl) 10 Mg Tablet 1 Tab PO BID Donepezil Hcl 10 Mg Tab.rapdis 10 Mg PO HS Fluoxetine Hcl 40 Mg Capsule 1 Cap PO DAILY Fluticasone Propionate Nasal [place] (Fluticasone Propionate) 16 Gm [place].susp 2 [place] NS DAILY Montelukast Sodium Tablet (Montelukast Sodium) 10 Mg Tablet 10 Mg PO HS Siria Allergy (Fexofenadine Hcl) 180 Mg Tablet 180 Mg PO DAILY Vitals/I & O Vital Sign - Last 24 Hours 04/09/20 04/09/20 04/09/20 04/09/20 11:00 15:00 19:30 20:00 Temp 97.4 97.4 97.6 97.4 97.4 97.6 Pulse 110 130 103 Resp 22 B/P (MAP) 117/60 (79) 121/55 (77) 94/49 (64) Pulse Ox 91 91 95 O2 Delivery Room Air Room Air Room Air Room Air 04/09/20 04/10/20 04/10/20 04/10/20 23:37 03:00 07:00 09:34 Temp 97.7 97.5 98.2 97.7 97.5 98.2 Pulse 110 98 98 94 Resp 18 B/P (MAP) 113/45 (67) 114/67 (83) 122/56 (78) Pulse Ox 95 91 91 O2 Delivery Room Air Room Air Room Air Intake and Output 04/09/20 04/09/20 04/10/20 15:00 23:00 07:00 Intake Total 280 ml 300 ml 0 ml Output Total 100 ml 100 ml Balance 280 ml 200 ml -100 ml Nutrition Consultation Dietary Evaluation: Recommendations by RD: Dietary education by RD, Increase Calorie Intake, Protein supplementation Comments: Continue w/cardiac diet, add ground meats per RN request (pt missing teeth) REC Ensure (vanilla) w/dinner Expected Outcomes/Goals: PO intake to meet >75% est needs Interpretation of weight loss: >7.5% in 3 months Malnutrition Findings: Food and Nutrition Intake (Sev: <50% est energy req 5days Weight Status: Obese GIORGI GRIJALVA MD April 10, 2020 10:04
[2020-04-10 10:56] VITALS: BP 113/56
--- NOTE | 2020-04-10 12:05 | PDOC ---
PROGRESS NOTES Subjective Subjective Patient seen and examined Objective Objective Vital Signs Date Time Temp Pulse Resp B/P (MAP) Pulse Ox O2 Delivery O2 Flow Rate FiO2 04/10/20 10:56 98.2 110 18 113/56 (75) 95 Room Air 98.2 Intake and Output 04/10/20 07:00 Intake Total 580 ml Output Total 200 ml Balance 380 ml Intake Oral 580 ml Output Urine Total 200 ml # Voids 4 # Bowel Movements 2 Physical Exam Abdomen: Normal bowel sounds Heart: Other (Irregularly irregular) General: No acute distress Lungs: Clear to auscultation Assessment Assessment Problems Medical Problems: (1) Afib Status: Acute (2) CHF (congestive heart failure) Status: Acute (3) Hypokalemia Status: Acute AFIB RVR: Rate now between 101 110. Ejection fraction of 50%. On low-dose digoxin. Uncertain if the patient received her beta-larry. Will we start beta-larry low-dose. Chronic diastolic CHF: continue present treatment. Dementia: on aricept and namenda UTI: per PCP LE Lymphedema with protein malnutrition. neg DVTR per doppler Comment Review of Relevant I have reviewed the following items getachew (where applicable) has been applied. Medications Current Medications Potassium Bicarbonate (Potassium Effervescent Tablet) 40 meq 1X ONCE PO Last administered on 04/06/20at 11:06; Start 04/06/20 at 11:00; Stop 04/06/20 at 11:02; Status DC Potassium Chloride/Water 100 ml @ 100 mls/hr Q1H IV Last administered on 04/06/20at 13:47; Start 04/06/20 at 11:00; Stop 04/06/20 at 14:59; Status DC Ondansetron HCl (Zofran) 4 mg PRN Q4HRS PRN IV NAUSEA/VOMITING; Start 04/06/20 at 13:00 Zolpidem Tartrate (Ambien) 5 mg PRN QHS PRN PO INSOMNIA Last administered on 04/09/20at 20:27; Start 04/06/20 at 13:00 Acetaminophen (Tylenol) 650 mg PRN Q4HRS PRN PO TEMP OVER 100.4F OR MILD PAIN; Start 04/06/20 at 13:00 Docusate Sodium (Colace) 100 mg PRN BID PRN PO HARD STOOLS; Start 04/06/20 at 13:00 Albuterol Sulfate (Ventolin Neb Soln) 2.5 mg PRN Q4HRS PRN NEB SHORTNESS OF BREATH; Start 04/06/20 at 13:00 Guaifenesin (Robitussin) 200 mg PRN Q4HRS PRN PO COUGH; Start 04/06/20 at 13:00 Enoxaparin Sodium (Lovenox 40mg Syringe) 40 mg Q24H SQ Last administered on 04/09/20 17:45; Start 04/06/20 at 13:00 Cyanocobalamin (Vitamin B-12) 1,000 mcg DAILY PO Last administered on 04/10/20 09:33; Start 04/06/20 at 14:00 Fluticasone Propionate (Flonase) 2 spray DAILY NS Last administered on 04/10/20 09:31; Start 04/07/20 at 09:00 Memantine (Namenda) 10 mg BID PO Last administered on 04/10/20 09:33; Start 04/06/20 at 21:00 Montelukast Sodium (Singulair) 10 mg HS PO Last administered on 04/09/20 20:27; Start 04/06/20 at 21:00 Mupirocin (Bactroban) 1 mine BID TP Last administered on 04/10/20 09:33; Start 04/06/20 at 21:00 Donepezil HCl (Aricept) 10 mg QHS PO Last administered on 04/09/20 20:27; Start 04/06/20 at 21:00 Cetirizine HCl (ZyrTEC) 10 mg DAILY PO Last administered on 04/10/20 09:33; Start 04/06/20 at 14:00 Fluoxetine HCl (PROzac) 40 mg DAILY PO Last administered on 04/10/20 09:33; Start 04/06/20 at 14:00 Potassium Chloride (Klor-Con) 40 meq Q2H PO Last administered on 04/06/20 13:33; Start 04/06/20 at 13:00; Stop 04/06/20 at 13:39; Status DC Metoprolol Tartrate (Lopressor Vial) 5 mg 1X ONCE IVP Last administered on 04/06/20 13:46; Start 04/06/20 at 13:45; Stop 04/06/20 at 13:46; Status DC Aspirin (Ecotrin) 81 mg DAILYWBKFT PO Last administered on 04/10/20at 09:33; Start 04/06/20 at 15:15 Potassium Chloride (Klor-Con) 20 meq 1X ONCE PO Last administered on 04/06/20at 17:19; Start 04/06/20 at 16:15; Stop 04/06/20 at 16:17; Status DC Digoxin (Lanoxin) 250 mcg 1X ONCE IV Last administered on 04/06/20at 18:24; Start 04/06/20 at 18:15; Stop 04/06/20 at 18:16; Status DC Ceftriaxone Sodium (Rocephin) 1 gm Q24H IVP Last administered on 04/08/20at 16:42; Start 04/06/20 at 18:30; Stop 04/09/20 at 12:44; Status DC Digoxin (Lanoxin) 250 mcg 1X ONCE IV Last administered on 04/07/20at 11:28; Start 04/07/20 at 10:45; Stop 04/07/20 at 10:46; Status DC Magnesium Sulfate 50 ml @ 25 mls/hr 1X ONCE IV Last administered on 04/07/20at 11:28; Start 04/07/20 at 11:00; Stop 04/07/20 at 12:59; Status DC Metoprolol Succinate (Toprol Xl) 25 mg DAILY PO ; Start 04/08/20 at 11:00; Stop 04/08/20 at 14:58; Status DC Lactobacillus Rhamnosus (Culturelle) 1 cap BID PO Last administered on 04/10/20at 09:34; Start 04/08/20 at 21:00 Digoxin (Lanoxin) 125 mcg DAILY PO Last administered on 04/10/20at 09:34; Start 04/09/20 at 09:00 Digoxin (Lanoxin) 125 mcg 1X ONCE PO Last administered on 04/08/20at 15:32; Start 04/08/20 at 15:15; Stop 04/08/20 at 15:16; Status DC Digoxin (Lanoxin) 250 mcg 1X ONCE IV Last administered on 04/09/20at 00:12; Start 04/09/20 at 00:30; Stop 04/09/20 at 00:31; Status DC Lorazepam (Ativan Inj) 0.5 mg 1X ONCE IVP Last administered on 04/09/20at 00:13; Start 04/09/20 at 00:30; Stop 04/09/20 at 00:31; Status DC Cefdinir (Omnicef) 300 mg BID PO Last administered on 04/10/20at 09:34; Start 04/09/20 at 21:00 Active Scripts Active Reported Proair Hfa Inhaler (Albuterol Sulfate) 8.5 Gm Hfa.aer.ad 2 Puff IH PRN Q4-6HRS PRN 21 Days Mupirocin Ointment (Mupirocin) 22 Gm Oint...g. 1 Mine TP BID B-12 (Cyanocobalamin (Vitamin B-12)) 1,000 Mcg Tablet 1 Tab PO DAILY 30 Days Namenda (Memantine Hcl) 10 Mg Tablet 1 Tab PO BID Donepezil Hcl 10 Mg Tab.rapdis 10 Mg PO HS Fluoxetine Hcl 40 Mg Capsule 1 Cap PO DAILY Fluticasone Propionate Nasal [place] (Fluticasone Propionate) 16 Gm [place].susp 2 [place] NS DAILY Montelukast Sodium Tablet (Montelukast Sodium) 10 Mg Tablet 10 Mg PO HS Siria Allergy (Fexofenadine Hcl) 180 Mg Tablet 180 Mg PO DAILY Vitals/I & O Vital Sign - Last 24 Hours 04/09/20 04/09/20 04/09/20 04/09/20 15:00 19:30 20:00 23:37 Temp 97.4 97.6 97.7 97.4 97.6 97.7 Pulse 130 103 110 Resp 22 B/P (MAP) 121/55 (77) 94/49 (64) 113/45 (67) Pulse Ox 91 95 95 O2 Delivery Room Air Room Air Room Air Room Air 04/10/20 04/10/20 04/10/20 04/10/20 03:00 07:00 09:34 10:56 Temp 97.5 98.2 98.2 97.5 98.2 98.2 Pulse 98 98 94 110 Resp 18 18 B/P (MAP) 114/67 (83) 122/56 (78) 113/56 (75) Pulse Ox 91 91 95 O2 Delivery Room Air Room Air Room Air Intake and Output 04/09/20 04/09/20 04/10/20 15:00 23:00 07:00 Intake Total 280 ml 300 ml 0 ml Output Total 100 ml 100 ml Balance 280 ml 200 ml -100 ml Nutrition Consultation Dietary Evaluation: Recommendations by RD: Dietary education by RD, Increase Calorie Intake, Protein supplementation Comments: Continue w/cardiac diet, add ground meats per RN request (pt missing teeth) REC Ensure (vanilla) w/dinner Expected Outcomes/Goals: PO intake to meet >75% est needs Interpretation of weight loss: >7.5% in 3 months Malnutrition Findings: Food and Nutrition Intake (Sev: <50% est energy req 5days Weight Status: Obese NELLY GORE MD April 10, 2020 12:05
[2020-04-10] MEDS: METOPROLOL TART IMMED RELEASE 25 MG TABLET. PO SCH ×2 (12:15→20:55)
--- NOTE | 2020-04-10 12:21 | NUR ---
Non administered 1215 dose of Metoprolol 12.5 as patient had full 25mg dose this AM.
[2020-04-10] MEDS: ENOXAPARIN 40 MG/0.4 ML SYRINGE. SQ SCH (12:38)
[2020-04-10 15:00] VITALS: BP 122/50
--- NOTE | 2020-04-10 16:16 | NUR ---
Spoke with patients sister in law Cecelia who inquired about patient discharge planning. This RN advised PT/OT recommendations for SNU. Cecelia stated that she does not want patient to go to [facility] at this time due to barnett virus spread. She wants patient to come home and resume her home health services.
[2020-04-10 19:00] VITALS: BP 113/62
[2020-04-10] MEDS: DONEPEZIL HCL 10 MG TABLET. PO SCH (20:54)
[2020-04-10] MEDS: MONTELUKAST SODIUM 10 MG TABLET. PO SCH (20:54)
[2020-04-10] MEDS: ZOLPIDEM 5 MG TABLET. PO PRN (20:54)
[2020-04-10 23:00] VITALS: BP 119/67
[2020-04-11 03:00] VITALS: BP 115/56
[2020-04-11 04:51] LABS: BASO # 0.1 x10^3/uL (0.0-0.2); BASO % 1 % (0-3); EOS # 0.2 x10^3/uL (0.0-0.7); EOS % 4 % (0-3); HEMATOCRIT 35.6 % (36.0-47.0); HEMOGLOBIN 11.7 g/dL (12.0-15.5); LYMPH # 1.4 x10^3/uL (1.0-4.8); LYMPH % 27 % (24-48); MEAN CORPUSCULAR HEMOGLOBIN 29 pg (25-35); MEAN CORPUSCULAR HGB CONC 33 g/dL (31-37); MEAN CORPUSCULAR VOLUME 87 fL (79-100); MONO # 0.5 x10^3/uL (0.0-1.1); MONO % 9 % (0-9); NEUT # 3.2 x10^3/uL (1.8-7.7); NEUT % 59 % (31-73); PLATELET COUNT 187 x10^3/uL (140-400); RED BLOOD COUNT 4.09 x10^6/uL (3.50-5.40); RED CELL DISTRIBUTION WIDTH 17.7 % (11.5-14.5); WHITE BLOOD COUNT 5.3 x10^3/uL (4.0-11.0)
[2020-04-11 05:57] LABS: ALBUMIN 1.3 g/dL (3.4-5.0); ALBUMIN/GLOBULIN RATIO 0.5 (1.0-1.7); CALCIUM 7.6 mg/dL (8.5-10.1); CREATININE 0.7 mg/dL (0.6-1.0); GFR 80.7; POTASSIUM 3.6 mmol/L (3.5-5.1); TOTAL BILIRUBIN 0.3 mg/dL (0.2-1.0)
[2020-04-11 07:00] VITALS: BP 122/63
[2020-04-11] MEDS: LACTOBACILLUS RHAMNOSUS GG 1 CAPSULE. PO SCH (08:36)
[2020-04-11] MEDS: ASPIRIN ENTERIC COATED 81 MG TABLET.DR. PO SCH (08:36)
[2020-04-11] MEDS: MUPIROCIN 2 % NASAL OINTMENT 22GM TUBE. TP SCH (08:36)
[2020-04-11] MEDS: MEMANTINE 10 MG TABLET. PO SCH (08:36)
[2020-04-11] MEDS: CETIRIZINE HCL 10 MG TABLET. PO SCH (08:36)
[2020-04-11] MEDS: FLUTICASONE 50MCG/NASAL SPRAY 16GM BOTTLE. NS SCH (08:36)
[2020-04-11] MEDS: CEFDINIR 300 MG CAPSULE PO SCH (08:36)
[2020-04-11] MEDS: FLUoxetine HCL 20 MG CAPSULE PO SCH (08:36)
[2020-04-11] MEDS: DIGOXIN 125 MCG TABLET. PO SCH (08:37)
[2020-04-11] MEDS: METOPROLOL TART IMMED RELEASE 25 MG TABLET. PO SCH (08:37)
[2020-04-11 10:44] VITALS: BP 177/73
--- NOTE | 2020-04-11 11:23 | PDOC ---
PROGRESS NOTES History of Present Illness History of Present Illness VTE Prophylaxis Ordered VTE Prophylaxis Devices: No VTE Pharmacological Prophylaxi: Yes impression Assessment/Plan Atrial fibrillation with rapid ventricular response Hypokalemia Peripheral lower extremity edema LE Lymphedema with protein malnutrition. neg DVTR per doppler Elevated BNP History of dementia History of anemia severe protein-caloric malnutrition uti Plan cardiology evaluation continue 25 mg toprol echocardiogram LE Lymphedema with protein malnutrition. neg DVTR per doppler Chads Vasc score by her age will probably require anticoagulation, Baby ECASA for stroke prevention Replace electrolytes, MG Check labs in the a.m. Further recommendations based on clinical course DVT prophylaxis with Lovenox OT for lymphedema nutrition consult omnicef 300mg po bid D/C 04/12 PT/OT D/W OT AND customer support consultant ok with home health refused SNF REHAB d/w grinder set up operator thread tool Recommendations * [facility] Discharge Recommendation - DME * Rolling Walker needed * in order to complete ADLs * and ambulation safely Vitals Vitals Vital Signs Date Time Temp Pulse Resp B/P (MAP) Pulse Ox O2 Delivery O2 Flow Rate FiO2 04/11/20 10:44 97.8 76 16 177/73 (107) 90 Room Air 97.8 Physical Exam General: Alert, Cooperative, No acute distress Heart: No murmurs, Other (Irregularly irregular) Lungs: Clear Abdomen: Normal bowel sounds, No tenderness, No hepatosplenomegaly Extremities: No clubbing, No cyanosis Skin: No breakdown Labs LABS Laboratory Tests Test 04/10/20 12:50 04/11/20 04:20 04/11/20 04:30 Ionized Calcium 1.13 mmol/L (1.13-1.32) White Blood Count 5.3 x10^3/uL (4.0-11.0) Red Blood Count 4.09 x10^6/uL (3.50-5.40) Hemoglobin 11.7 g/dL (12.0-15.5) Hematocrit 35.6 % (36.0-47.0) Mean Corpuscular Volume 87 fL (79-100) Mean Corpuscular Hemoglobin 29 pg (25-35) Mean Corpuscular Hemoglobin Concent 33 g/dL (31-37) Red Cell Distribution Width 17.7 % (11.5-14.5) Platelet Count 187 x10^3/uL (140-400) Neutrophils (%) (Auto) 59 % (31-73) Lymphocytes (%) (Auto) 27 % (24-48) Monocytes (%) (Auto) 9 % (0-9) Eosinophils (%) (Auto) 4 % (0-3) Basophils (%) (Auto) 1 % (0-3) Neutrophils # (Auto) 3.2 x10^3/uL (1.8-7.7) Lymphocytes # (Auto) 1.4 x10^3/uL (1.0-4.8) Monocytes # (Auto) 0.5 x10^3/uL (0.0-1.1) Eosinophils # (Auto) 0.2 x10^3/uL (0.0-0.7) Basophils # (Auto) 0.1 x10^3/uL (0.0-0.2) Sodium Level 144 mmol/L (136-145) Potassium Level 3.6 mmol/L (3.5-5.1) Chloride Level 108 mmol/L (98-107) Carbon Dioxide Level 34 mmol/L (21-32) Anion Gap 2 (6-14) Blood Urea Nitrogen 11 mg/dL (7-20) Creatinine 0.7 mg/dL (0.6-1.0) Estimated GFR (Cockcroft-Gault) 80.7 BUN/Creatinine Ratio 16 (6-20) Glucose Level 81 mg/dL (70-99) Calcium Level 7.6 mg/dL (8.5-10.1) Total Bilirubin 0.3 mg/dL (0.2-1.0) Aspartate Amino Transf (AST/SGOT) 27 U/L (15-37) Alanine Aminotransferase (ALT/SGPT) 16 U/L (14-59) Alkaline Phosphatase 79 U/L (46-116) Total Protein 4.0 g/dL (6.4-8.2) Albumin 1.3 g/dL (3.4-5.0) Albumin/Globulin Ratio 0.5 (1.0-1.7) Assessment and Plan Assessmemt and Plan Problems Medical Problems: (1) Afib Status: Acute (2) CHF (congestive heart failure) Status: Acute (3) Hypokalemia Status: Acute Comment Review of Relevant I have reviewed the following items getachew (where applicable) has been applied. Labs Laboratory Tests Test 04/10/20 12:50 04/11/20 04:20 04/11/20 04:30 Ionized Calcium 1.13 mmol/L (1.13-1.32) White Blood Count 5.3 x10^3/uL (4.0-11.0) Red Blood Count 4.09 x10^6/uL (3.50-5.40) Hemoglobin 11.7 g/dL (12.0-15.5) Hematocrit 35.6 % (36.0-47.0) Mean Corpuscular Volume 87 fL (79-100) Mean Corpuscular Hemoglobin 29 pg (25-35) Mean Corpuscular Hemoglobin Concent 33 g/dL (31-37) Red Cell Distribution Width 17.7 % (11.5-14.5) Platelet Count 187 x10^3/uL (140-400) Neutrophils (%) (Auto) 59 % (31-73) Lymphocytes (%) (Auto) 27 % (24-48) Monocytes (%) (Auto) 9 % (0-9) Eosinophils (%) (Auto) 4 % (0-3) Basophils (%) (Auto) 1 % (0-3) Neutrophils # (Auto) 3.2 x10^3/uL (1.8-7.7) Lymphocytes # (Auto) 1.4 x10^3/uL (1.0-4.8) Monocytes # (Auto) 0.5 x10^3/uL (0.0-1.1) Eosinophils # (Auto) 0.2 x10^3/uL (0.0-0.7) Basophils # (Auto) 0.1 x10^3/uL (0.0-0.2) Sodium Level 144 mmol/L (136-145) Potassium Level 3.6 mmol/L (3.5-5.1) Chloride Level 108 mmol/L (98-107) Carbon Dioxide Level 34 mmol/L (21-32) Anion Gap 2 (6-14) Blood Urea Nitrogen 11 mg/dL (7-20) Creatinine 0.7 mg/dL (0.6-1.0) Estimated GFR (Cockcroft-Gault) 80.7 BUN/Creatinine Ratio 16 (6-20) Glucose Level 81 mg/dL (70-99) Calcium Level 7.6 mg/dL (8.5-10.1) Total Bilirubin 0.3 mg/dL (0.2-1.0) Aspartate Amino Transf (AST/SGOT) 27 U/L (15-37) Alanine Aminotransferase (ALT/SGPT) 16 U/L (14-59) Alkaline Phosphatase 79 U/L (46-116) Total Protein 4.0 g/dL (6.4-8.2) Albumin 1.3 g/dL (3.4-5.0) Albumin/Globulin Ratio 0.5 (1.0-1.7) Laboratory Tests Test 04/10/20 12:50 04/11/20 04:20 04/11/20 04:30 Ionized Calcium 1.13 mmol/L (1.13-1.32) White Blood Count 5.3 x10^3/uL (4.0-11.0) Red Blood Count 4.09 x10^6/uL (3.50-5.40) Hemoglobin 11.7 g/dL (12.0-15.5) Hematocrit 35.6 % (36.0-47.0) Mean Corpuscular Volume 87 fL (79-100) Mean Corpuscular Hemoglobin 29 pg (25-35) Mean Corpuscular Hemoglobin Concent 33 g/dL (31-37) Red Cell Distribution Width 17.7 % (11.5-14.5) Platelet Count 187 x10^3/uL (140-400) Neutrophils (%) (Auto) 59 % (31-73) Lymphocytes (%) (Auto) 27 % (24-48) Monocytes (%) (Auto) 9 % (0-9) Eosinophils (%) (Auto) 4 % (0-3) Basophils (%) (Auto) 1 % (0-3) Neutrophils # (Auto) 3.2 x10^3/uL (1.8-7.7) Lymphocytes # (Auto) 1.4 x10^3/uL (1.0-4.8) Monocytes # (Auto) 0.5 x10^3/uL (0.0-1.1) Eosinophils # (Auto) 0.2 x10^3/uL (0.0-0.7) Basophils # (Auto) 0.1 x10^3/uL (0.0-0.2) Sodium Level 144 mmol/L (136-145) Potassium Level 3.6 mmol/L (3.5-5.1) Chloride Level 108 mmol/L (98-107) Carbon Dioxide Level 34 mmol/L (21-32) Anion Gap 2 (6-14) Blood Urea Nitrogen 11 mg/dL (7-20) Creatinine 0.7 mg/dL (0.6-1.0) Estimated GFR (Cockcroft-Gault) 80.7 BUN/Creatinine Ratio 16 (6-20) Glucose Level 81 mg/dL (70-99) Calcium Level 7.6 mg/dL (8.5-10.1) Total Bilirubin 0.3 mg/dL (0.2-1.0) Aspartate Amino Transf (AST/SGOT) 27 U/L (15-37) Alanine Aminotransferase (ALT/SGPT) 16 U/L (14-59) Alkaline Phosphatase 79 U/L (46-116) Total Protein 4.0 g/dL (6.4-8.2) Albumin 1.3 g/dL (3.4-5.0) Albumin/Globulin Ratio 0.5 (1.0-1.7) Medications Current Medications Potassium Bicarbonate (Potassium Effervescent Tablet) 40 meq 1X ONCE PO Last administered on 04/06/20at 11:06; Start 04/06/20 at 11:00; Stop 04/06/20 at 11:02; Status DC Potassium Chloride/Water 100 ml @ 100 mls/hr Q1H IV Last administered on 04/06/20at 13:47; Start 04/06/20 at 11:00; Stop 04/06/20 at 14:59; Status DC Ondansetron HCl (Zofran) 4 mg PRN Q4HRS PRN IV NAUSEA/VOMITING; Start 04/06/20 at 13:00 Zolpidem Tartrate (Ambien) 5 mg PRN QHS PRN PO INSOMNIA Last administered on 04/10/20at 20:54; Start 04/06/20 at 13:00 Acetaminophen (Tylenol) 650 mg PRN Q4HRS PRN PO TEMP OVER 100.4F OR MILD PAIN; Start 04/06/20 at 13:00 Docusate Sodium (Colace) 100 mg PRN BID PRN PO HARD STOOLS; Start 04/06/20 at 13:00 Albuterol Sulfate (Ventolin Neb Soln) 2.5 mg PRN Q4HRS PRN NEB SHORTNESS OF BREATH; Start 04/06/20 at 13:00 Guaifenesin (Robitussin) 200 mg PRN Q4HRS PRN PO COUGH Last administered on 04/11/20 08:36; Start 04/06/20 at 13:00 Enoxaparin Sodium (Lovenox 40mg Syringe) 40 mg Q24H SQ Last administered on 04/10/20 12:38; Start 04/06/20 at 13:00 Cyanocobalamin (Vitamin B-12) 1,000 mcg DAILY PO Last administered on 04/10/20 09:33; Start 04/06/20 at 14:00 Fluticasone Propionate (Flonase) 2 spray DAILY NS Last administered on 04/11/20 08:36; Start 04/07/20 at 09:00 Memantine (Namenda) 10 mg BID PO Last administered on 04/11/20 08:36; Start 04/06/20 at 21:00 Montelukast Sodium (Singulair) 10 mg HS PO Last administered on 04/10/20 20:54; Start 04/06/20 at 21:00 Mupirocin (Bactroban) 1 mine BID TP Last administered on 04/11/20 08:36; Start 04/06/20 at 21:00 Donepezil HCl (Aricept) 10 mg QHS PO Last administered on 04/10/20 20:54; Start 04/06/20 at 21:00 Cetirizine HCl (ZyrTEC) 10 mg DAILY PO Last administered on 04/11/20 08:36; Start 04/06/20 at 14:00 Fluoxetine HCl (PROzac) 40 mg DAILY PO Last administered on 04/11/20 08:36; Start 04/06/20 at 14:00 Potassium Chloride (Klor-Con) 40 meq Q2H PO Last administered on 04/06/20 13:33; Start 04/06/20 at 13:00; Stop 04/06/20 at 13:39; Status DC Metoprolol Tartrate (Lopressor Vial) 5 mg 1X ONCE IVP Last administered on 04/06/20 13:46; Start 04/06/20 at 13:45; Stop 04/06/20 at 13:46; Status DC Aspirin (Ecotrin) 81 mg DAILYWBKFT PO Last administered on 04/11/20at 08:36; Start 04/06/20 at 15:15 Potassium Chloride (Klor-Con) 20 meq 1X ONCE PO Last administered on 04/06/20at 17:19; Start 04/06/20 at 16:15; Stop 04/06/20 at 16:17; Status DC Digoxin (Lanoxin) 250 mcg 1X ONCE IV Last administered on 04/06/20at 18:24; Start 04/06/20 at 18:15; Stop 04/06/20 at 18:16; Status DC Ceftriaxone Sodium (Rocephin) 1 gm Q24H IVP Last administered on 04/08/20at 16:42; Start 04/06/20 at 18:30; Stop 04/09/20 at 12:44; Status DC Digoxin (Lanoxin) 250 mcg 1X ONCE IV Last administered on 04/07/20at 11:28; Start 04/07/20 at 10:45; Stop 04/07/20 at 10:46; Status DC Magnesium Sulfate 50 ml @ 25 mls/hr 1X ONCE IV Last administered on 04/07/20at 11:28; Start 04/07/20 at 11:00; Stop 04/07/20 at 12:59; Status DC Metoprolol Succinate (Toprol Xl) 25 mg DAILY PO ; Start 04/08/20 at 11:00; Stop 04/08/20 at 14:58; Status DC Lactobacillus Rhamnosus (Culturelle) 1 cap BID PO Last administered on 04/11/20at 08:36; Start 04/08/20 at 21:00 Digoxin (Lanoxin) 125 mcg DAILY PO Last administered on 04/11/20at 08:37; Start 04/09/20 at 09:00 Digoxin (Lanoxin) 125 mcg 1X ONCE PO Last administered on 04/08/20at 15:32; Start 04/08/20 at 15:15; Stop 04/08/20 at 15:16; Status DC Digoxin (Lanoxin) 250 mcg 1X ONCE IV Last administered on 04/09/20at 00:12; Start 04/09/20 at 00:30; Stop 04/09/20 at 00:31; Status DC Lorazepam (Ativan Inj) 0.5 mg 1X ONCE IVP Last administered on 04/09/20at 00:13; Start 04/09/20 at 00:30; Stop 04/09/20 at 00:31; Status DC Cefdinir (Omnicef) 300 mg BID PO Last administered on 04/11/20at 08:36; Start 04/09/20 at 21:00 Metoprolol Tartrate (Lopressor) 12.5 mg BID PO Last administered on 04/11/20at 08:37; Start 04/10/20 at 12:15 Active Scripts Active Reported Proair Hfa Inhaler (Albuterol Sulfate) 8.5 Gm Hfa.aer.ad 2 Puff IH PRN Q4-6HRS PRN 21 Days Mupirocin Ointment (Mupirocin) 22 Gm Oint...g. 1 Mine TP BID B-12 (Cyanocobalamin (Vitamin B-12)) 1,000 Mcg Tablet 1 Tab PO DAILY 30 Days Namenda (Memantine Hcl) 10 Mg Tablet 1 Tab PO BID Donepezil Hcl 10 Mg Tab.rapdis 10 Mg PO HS Fluoxetine Hcl 40 Mg Capsule 1 Cap PO DAILY Fluticasone Propionate Nasal [place] (Fluticasone Propionate) 16 Gm [place].susp 2 [place] NS DAILY Montelukast Sodium Tablet (Montelukast Sodium) 10 Mg Tablet 10 Mg PO HS Siria Allergy (Fexofenadine Hcl) 180 Mg Tablet 180 Mg PO DAILY Vitals/I & O Vital Sign - Last 24 Hours 04/10/20 04/10/20 04/10/20 04/10/20 15:00 19:00 19:47 20:55 Temp 98.1 97.7 98.1 97.7 Pulse 91 96 96 Resp 18 16 B/P (MAP) 122/50 (74) 113/62 (79) 113/62 Pulse Ox 92 93 O2 Delivery Room Air Room Air Room Air 04/10/20 04/11/20 04/11/20 04/11/20 23:00 03:00 07:00 08:00 Temp 97.8 98.0 97.8 98.0 Pulse 82 68 85 Resp 22 16 16 B/P (MAP) 119/67 (84) 115/56 (75) 122/63 (82) Pulse Ox 92 92 90 O2 Delivery Room Air Room Air Room Air Room Air 04/11/20 04/11/20 04/11/20 08:37 08:37 10:44 Temp 97.8 97.8 Pulse 87 87 76 Resp 16 B/P (MAP) 122/63 122/63 177/73 (107) Pulse Ox 90 O2 Delivery Room Air Intake and Output 04/10/20 04/10/20 04/11/20 15:00 23:00 07:00 Intake Total 100 ml 240 ml Balance 100 ml 240 ml Nutrition Consultation Dietary Evaluation: Recommendations by RD: Dietary education by RD, Increase Calorie Intake, Protein supplementation Comments: Continue w/cardiac diet, add ground meats per RN request (pt missing teeth) REC Ensure (vanilla) w/dinner Expected Outcomes/Goals: PO intake to meet >75% est needs Interpretation of weight loss: >7.5% in 3 months Malnutrition Findings: Food and Nutrition Intake (Sev: <50% est energy req 5days Weight Status: Obese GIORGI GRIJALVA MD April 11, 2020 11:23
--- NOTE | 2020-04-11 12:27 | PDOC ---
PROGRESS NOTES Subjective Subjective Patient seen and examined Objective Objective Vital Signs Date Time Temp Pulse Resp B/P (MAP) Pulse Ox O2 Delivery O2 Flow Rate FiO2 04/11/20 10:44 97.8 76 16 177/73 (107) 90 Room Air 97.8 Intake and Output 04/11/20 07:00 Intake Total 340 ml Balance 340 ml Intake Oral 340 ml # Voids 6 # Bowel Movements 4 Physical Exam Abdomen: Normal bowel sounds Heart: Regular rate General: mild distress Lungs: Other (Slightly decreased breath sounds) Assessment Assessment Problems Medical Problems: (1) Afib Status: Acute (2) CHF (congestive heart failure) Status: Acute (3) Hypokalemia Status: Acute AFIB RVR: Rate now controlled. Ejection fraction of 50% on echo. On low-dose digoxin and beta-blockers. Chronic diastolic CHF: continue present treatment. Dementia: on aricept and namenda UTI: per PCP LE Lymphedema with protein malnutrition. neg DVTR per doppler Comment Review of Relevant I have reviewed the following items getachew (where applicable) has been applied. Labs Laboratory Tests Test 04/10/20 12:50 04/11/20 04:20 04/11/20 04:30 Ionized Calcium 1.13 mmol/L (1.13-1.32) White Blood Count 5.3 x10^3/uL (4.0-11.0) Red Blood Count 4.09 x10^6/uL (3.50-5.40) Hemoglobin 11.7 g/dL (12.0-15.5) Hematocrit 35.6 % (36.0-47.0) Mean Corpuscular Volume 87 fL (79-100) Mean Corpuscular Hemoglobin 29 pg (25-35) Mean Corpuscular Hemoglobin Concent 33 g/dL (31-37) Red Cell Distribution Width 17.7 % (11.5-14.5) Platelet Count 187 x10^3/uL (140-400) Neutrophils (%) (Auto) 59 % (31-73) Lymphocytes (%) (Auto) 27 % (24-48) Monocytes (%) (Auto) 9 % (0-9) Eosinophils (%) (Auto) 4 % (0-3) Basophils (%) (Auto) 1 % (0-3) Neutrophils # (Auto) 3.2 x10^3/uL (1.8-7.7) Lymphocytes # (Auto) 1.4 x10^3/uL (1.0-4.8) Monocytes # (Auto) 0.5 x10^3/uL (0.0-1.1) Eosinophils # (Auto) 0.2 x10^3/uL (0.0-0.7) Basophils # (Auto) 0.1 x10^3/uL (0.0-0.2) Sodium Level 144 mmol/L (136-145) Potassium Level 3.6 mmol/L (3.5-5.1) Chloride Level 108 mmol/L (98-107) Carbon Dioxide Level 34 mmol/L (21-32) Anion Gap 2 (6-14) Blood Urea Nitrogen 11 mg/dL (7-20) Creatinine 0.7 mg/dL (0.6-1.0) Estimated GFR (Cockcroft-Gault) 80.7 BUN/Creatinine Ratio 16 (6-20) Glucose Level 81 mg/dL (70-99) Calcium Level 7.6 mg/dL (8.5-10.1) Total Bilirubin 0.3 mg/dL (0.2-1.0) Aspartate Amino Transf (AST/SGOT) 27 U/L (15-37) Alanine Aminotransferase (ALT/SGPT) 16 U/L (14-59) Alkaline Phosphatase 79 U/L (46-116) Total Protein 4.0 g/dL (6.4-8.2) Albumin 1.3 g/dL (3.4-5.0) Albumin/Globulin Ratio 0.5 (1.0-1.7) Laboratory Tests Test 04/10/20 12:50 04/11/20 04:20 04/11/20 04:30 Ionized Calcium 1.13 mmol/L (1.13-1.32) White Blood Count 5.3 x10^3/uL (4.0-11.0) Red Blood Count 4.09 x10^6/uL (3.50-5.40) Hemoglobin 11.7 g/dL (12.0-15.5) Hematocrit 35.6 % (36.0-47.0) Mean Corpuscular Volume 87 fL (79-100) Mean Corpuscular Hemoglobin 29 pg (25-35) Mean Corpuscular Hemoglobin Concent 33 g/dL (31-37) Red Cell Distribution Width 17.7 % (11.5-14.5) Platelet Count 187 x10^3/uL (140-400) Neutrophils (%) (Auto) 59 % (31-73) Lymphocytes (%) (Auto) 27 % (24-48) Monocytes (%) (Auto) 9 % (0-9) Eosinophils (%) (Auto) 4 % (0-3) Basophils (%) (Auto) 1 % (0-3) Neutrophils # (Auto) 3.2 x10^3/uL (1.8-7.7) Lymphocytes # (Auto) 1.4 x10^3/uL (1.0-4.8) Monocytes # (Auto) 0.5 x10^3/uL (0.0-1.1) Eosinophils # (Auto) 0.2 x10^3/uL (0.0-0.7) Basophils # (Auto) 0.1 x10^3/uL (0.0-0.2) Sodium Level 144 mmol/L (136-145) Potassium Level 3.6 mmol/L (3.5-5.1) Chloride Level 108 mmol/L (98-107) Carbon Dioxide Level 34 mmol/L (21-32) Anion Gap 2 (6-14) Blood Urea Nitrogen 11 mg/dL (7-20) Creatinine 0.7 mg/dL (0.6-1.0) Estimated GFR (Cockcroft-Gault) 80.7 BUN/Creatinine Ratio 16 (6-20) Glucose Level 81 mg/dL (70-99) Calcium Level 7.6 mg/dL (8.5-10.1) Total Bilirubin 0.3 mg/dL (0.2-1.0) Aspartate Amino Transf (AST/SGOT) 27 U/L (15-37) Alanine Aminotransferase (ALT/SGPT) 16 U/L (14-59) Alkaline Phosphatase 79 U/L (46-116) Total Protein 4.0 g/dL (6.4-8.2) Albumin 1.3 g/dL (3.4-5.0) Albumin/Globulin Ratio 0.5 (1.0-1.7) Medications Current Medications Potassium Bicarbonate (Potassium Effervescent Tablet) 40 meq 1X ONCE PO Last administered on 5/20/20at 11:06; Start 04/06/20 at 11:00; Stop 04/06/20 at 11:02; Status DC Potassium Chloride/Water 100 ml @ 100 mls/hr Q1H IV Last administered on 04/06/20 13:47; Start 04/06/20 at 11:00; Stop 04/06/20 at 14:59; Status DC Ondansetron HCl (Zofran) 4 mg PRN Q4HRS PRN IV NAUSEA/VOMITING; Start 04/06/20 at 13:00 Zolpidem Tartrate (Ambien) 5 mg PRN QHS PRN PO INSOMNIA Last administered on 04/10/20 20:54; Start 04/06/20 at 13:00 Acetaminophen (Tylenol) 650 mg PRN Q4HRS PRN PO TEMP OVER 100.4F OR MILD PAIN; Start 04/06/20 at 13:00 Docusate Sodium (Colace) 100 mg PRN BID PRN PO HARD STOOLS; Start 04/06/20 at 13:00 Albuterol Sulfate (Ventolin Neb Soln) 2.5 mg PRN Q4HRS PRN NEB SHORTNESS OF BREATH; Start 04/06/20 at 13:00 Guaifenesin (Robitussin) 200 mg PRN Q4HRS PRN PO COUGH Last administered on 04/11/20 08:36; Start 04/06/20 at 13:00 Enoxaparin Sodium (Lovenox 40mg Syringe) 40 mg Q24H SQ Last administered on 04/10/20 12:38; Start 04/06/20 at 13:00 Cyanocobalamin (Vitamin B-12) 1,000 mcg DAILY PO Last administered on 04/10/20 09:33; Start 04/06/20 at 14:00 Fluticasone Propionate (Flonase) 2 spray DAILY NS Last administered on 04/11/20 08:36; Start 04/07/20 at 09:00 Memantine (Namenda) 10 mg BID PO Last administered on 04/11/20 08:36; Start 04/06/20 at 21:00 Montelukast Sodium (Singulair) 10 mg HS PO Last administered on 04/10/20 20:54; Start 04/06/20 at 21:00 Mupirocin (Bactroban) 1 mine BID TP Last administered on 04/11/20 08:36; Start 04/06/20 at 21:00 Donepezil HCl (Aricept) 10 mg QHS PO Last administered on 04/10/20 20:54; Start 04/06/20 at 21:00 Cetirizine HCl (ZyrTEC) 10 mg DAILY PO Last administered on 04/11/20 08:36; Start 04/06/20 at 14:00 Fluoxetine HCl (PROzac) 40 mg DAILY PO Last administered on 04/11/20 08:36; Start 04/06/20 at 14:00 Potassium Chloride (Klor-Con) 40 meq Q2H PO Last administered on 04/06/20 13:33; Start 04/06/20 at 13:00; Stop 04/06/20 at 13:39; Status DC Metoprolol Tartrate (Lopressor Vial) 5 mg 1X ONCE IVP Last administered on 04/06/20 13:46; Start 04/06/20 at 13:45; Stop 04/06/20 at 13:46; Status DC Aspirin (Ecotrin) 81 mg DAILYWBKFT PO Last administered on 04/11/20 08:36; Start 04/06/20 at 15:15 Potassium Chloride (Klor-Con) 20 meq 1X ONCE PO Last administered on 04/06/20 17:19; Start 04/06/20 at 16:15; Stop 04/06/20 at 16:17; Status DC Digoxin (Lanoxin) 250 mcg 1X ONCE IV Last administered on 04/06/20at 18:24; Start 04/06/20 at 18:15; Stop 04/06/20 at 18:16; Status DC Ceftriaxone Sodium (Rocephin) 1 gm Q24H IVP Last administered on 04/08/20at 16:42; Start 04/06/20 at 18:30; Stop 04/09/20 at 12:44; Status DC Digoxin (Lanoxin) 250 mcg 1X ONCE IV Last administered on 04/07/20 11:28; Start 04/07/20 at 10:45; Stop 04/07/20 at 10:46; Status DC Magnesium Sulfate 50 ml @ 25 mls/hr 1X ONCE IV Last administered on 5/21/20at 11:28; Start 04/07/20 at 11:00; Stop 04/07/20 at 12:59; Status DC Metoprolol Succinate (Toprol Xl) 25 mg DAILY PO ; Start 04/08/20 at 11:00; Stop 04/08/20 at 14:58; Status DC Lactobacillus Rhamnosus (Culturelle) 1 cap BID PO Last administered on 04/11/20at 08:36; Start 04/08/20 at 21:00 Digoxin (Lanoxin) 125 mcg DAILY PO Last administered on 04/11/20at 08:37; Start 04/09/20 at 09:00 Digoxin (Lanoxin) 125 mcg 1X ONCE PO Last administered on 04/08/20at 15:32; Start 04/08/20 at 15:15; Stop 04/08/20 at 15:16; Status DC Digoxin (Lanoxin) 250 mcg 1X ONCE IV Last administered on 04/09/20at 00:12; Start 04/09/20 at 00:30; Stop 04/09/20 at 00:31; Status DC Lorazepam (Ativan Inj) 0.5 mg 1X ONCE IVP Last administered on 04/09/20at 00:13; Start 04/09/20 at 00:30; Stop 04/09/20 at 00:31; Status DC Cefdinir (Omnicef) 300 mg BID PO Last administered on 04/11/20 08:36; Start 04/09/20 at 21:00 Metoprolol Tartrate (Lopressor) 12.5 mg BID PO Last administered on 04/11/20at 08:37; Start 04/10/20 at 12:15 Active Scripts Active Reported Proair Hfa Inhaler (Albuterol Sulfate) 8.5 Gm Hfa.aer.ad 2 Puff IH PRN Q4-6HRS PRN 21 Days Mupirocin Ointment (Mupirocin) 22 Gm Oint...g. 1 Mine TP BID B-12 (Cyanocobalamin (Vitamin B-12)) 1,000 Mcg Tablet 1 Tab PO DAILY 30 Days Namenda (Memantine Hcl) 10 Mg Tablet 1 Tab PO BID Donepezil Hcl 10 Mg Tab.rapdis 10 Mg PO HS Fluoxetine Hcl 40 Mg Capsule 1 Cap PO DAILY Fluticasone Propionate Nasal [place] (Fluticasone Propionate) 16 Gm [place].susp 2 [place] NS DAILY Montelukast Sodium Tablet (Montelukast Sodium) 10 Mg Tablet 10 Mg PO HS Siria Allergy (Fexofenadine Hcl) 180 Mg Tablet 180 Mg PO DAILY Vitals/I & O Vital Sign - Last 24 Hours 04/10/20 04/10/20 04/10/20 04/10/20 15:00 19:00 19:47 20:55 Temp 98.1 97.7 98.1 97.7 Pulse 91 96 96 Resp 18 16 B/P (MAP) 122/50 (74) 113/62 (79) 113/62 Pulse Ox 92 93 O2 Delivery Room Air Room Air Room Air 04/10/20 04/11/20 04/11/20 04/11/20 23:00 03:00 07:00 08:00 Temp 97.8 98.0 97.8 98.0 Pulse 82 68 85 Resp 22 16 16 B/P (MAP) 119/67 (84) 115/56 (75) 122/63 (82) Pulse Ox 92 92 90 O2 Delivery Room Air Room Air Room Air Room Air 04/11/20 04/11/20 04/11/20 08:37 08:37 10:44 Temp 97.8 97.8 Pulse 87 87 76 Resp 16 B/P (MAP) 122/63 122/63 177/73 (107) Pulse Ox 90 O2 Delivery Room Air Intake and Output0 04/10/20 04/10/20 04/11/20 15:00 23:00 07:00 Intake Total 100 ml 240 ml Balance 100 ml 240 ml Nutrition Consultation Dietary Evaluation: Recommendations by RD: Dietary education by RD, Increase Calorie Intake, Protein supplementation Comments: Continue w/cardiac diet, add ground meats per RN request (pt missing teeth) REC Ensure (vanilla) w/dinner Expected Outcomes/Goals: PO intake to meet >75% est needs Interpretation of weight loss: >7.5% in 3 months Malnutrition Findings: Food and Nutrition Intake (Sev: <50% est energy req 5days Weight Status: Obese NELLY GORE MD April 11, 2020 12:27
[2020-04-11] MEDS: CYANOCOBALAMIN (VITAMIN B-12) 1,000 MCG TABLET. PO SCH (13:12)
[2020-04-11] MEDS: ENOXAPARIN 40 MG/0.4 ML SYRINGE. SQ SCH (13:13)
--- NOTE | 2020-04-11 14:19 | PDOC3 ---
Discharge Summary Date of Admission: April 06, 2020 Date of Discharge: April 11, 2020 Follow-Up: 1-2 days Admitting Diagnosis comment: DISCHARGE DX , Assessment/Plan Atrial fibrillation with rapid ventricular response Hypokalemia Peripheral lower extremity edema LE Lymphedema with protein malnutrition. neg DVTR per doppler Elevated BNP History of dementia History of anemia severe protein-caloric malnutrition uti Plan cardiology evaluation continue 25 mg toprol echocardiogram LE Lymphedema with protein malnutrition. neg DVTR per doppler Chads Vasc score by her age will probably require anticoagulation, Baby ECASA for stroke prevention Replace electrolytes, MG Check labs in the a.m. Further recommendations based on clinical course DVT prophylaxis with Lovenox OT for lymphedema nutrition consult omnicef 300mg po bid D/C 04/12 PT/OT D/W OT AND family and marriage counsellor ok with home health refused SNF REHAB D/C PLANNING 33 MIN d/w auger operator Recommendations * Intermediate Unit Discharge Recommendation - DME * Rolling Walker needed * in order to complete ADLs * and ambulation safely Vitals Vitals Vital Signs Date Time Temp Pulse Resp B/P (MAP) Pulse Ox O2 Delivery O2 Flow Rate FiO2 04/11/20 10:44 97.8 76 16 177/73 (107) 90 Room Air 97.8 Physical Exam General: Alert, Cooperative, No acute distress Heart: No murmurs, Other (Irregularly irregular) Lungs: Clear Abdomen: Normal bowel sounds, No tenderness, No hepatosplenomegaly Extremities: No clubbing, No cyanosis Skin: No breakdown FINAL DIAGNOSIS Problems Medical Problems: (1) Afib Status: Acute (2) CHF (congestive heart failure) Status: Acute (3) Hypokalemia Status: Acute Brief Hospital Course Ms. Colorado is a 80 old [sex] who presented with [ A-FIB RVR, UTI ] CONDITION AT DISCHARGE: Improved Discharge Medications Current Medications Potassium Bicarbonate (Potassium Effervescent Tablet) 40 meq 1X ONCE PO Last administered on 04/06/20at 11:06; Start 04/06/20 at 11:00; Stop 04/06/20 at 11:02; Status DC Potassium Chloride/Water 100 ml @ 100 mls/hr Q1H IV Last administered on 04/06/20at 13:47; Start 04/06/20 at 11:00; Stop 04/06/20 at 14:59; Status DC Ondansetron HCl (Zofran) 4 mg PRN Q4HRS PRN IV NAUSEA/VOMITING; Start 04/06/20 at 13:00 Zolpidem Tartrate (Ambien) 5 mg PRN QHS PRN PO INSOMNIA Last administered on 04/10/20 20:54; Start 04/06/20 at 13:00 Acetaminophen (Tylenol) 650 mg PRN Q4HRS PRN PO TEMP OVER 100.4F OR MILD PAIN; Start 04/06/20 at 13:00 Docusate Sodium (Colace) 100 mg PRN BID PRN PO HARD STOOLS; Start 04/06/20 at 13:00 Albuterol Sulfate (Ventolin Neb Soln) 2.5 mg PRN Q4HRS PRN NEB SHORTNESS OF BREATH; Start 04/06/20 at 13:00 Guaifenesin (Robitussin) 200 mg PRN Q4HRS PRN PO COUGH Last administered on 04/11/20 08:36; Start 04/06/20 at 13:00 Enoxaparin Sodium (Lovenox 40mg Syringe) 40 mg Q24H SQ Last administered on 04/11/20 13:13; Start 04/06/20 at 13:00 Cyanocobalamin (Vitamin B-12) 1,000 mcg DAILY PO Last administered on 04/11/20 13:12; Start 04/06/20 at 14:00 Fluticasone Propionate (Flonase) 2 spray DAILY NS Last administered on 04/11/20 08:36; Start 04/07/20 at 09:00 Memantine (Namenda) 10 mg BID PO Last administered on 04/11/20 08:36; Start 04/06/20 at 21:00 Montelukast Sodium (Singulair) 10 mg HS PO Last administered on 04/10/20 20:54; Start 04/06/20 at 21:00 Mupirocin (Bactroban) 1 mine BID TP Last administered on 04/11/20 08:36; Start 04/06/20 at 21:00 Donepezil HCl (Aricept) 10 mg QHS PO Last administered on 04/10/20 20:54; Start 04/06/20 at 21:00 Cetirizine HCl (ZyrTEC) 10 mg DAILY PO Last administered on 04/11/20 08:36; Start 04/06/20 at 14:00 Fluoxetine HCl (PROzac) 40 mg DAILY PO Last administered on 04/11/20at 08:36; Start 04/06/20 at 14:00 Potassium Chloride (Klor-Con) 40 meq Q2H PO Last administered on 04/06/20at 13:33; Start 04/06/20 at 13:00; Stop 04/06/20 at 13:39; Status DC Metoprolol Tartrate (Lopressor Vial) 5 mg 1X ONCE IVP Last administered on at 13:46; Start 04/06/20 at 13:45; Stop 04/06/20 at 13:46; Status DC Aspirin (Ecotrin) 81 mg DAILYWBKFT PO Last administered on 04/11/20at 08:36; Start 04/06/20 at 15:15 Potassium Chloride (Klor-Con) 20 meq 1X ONCE PO Last administered on 04/06/20at 17:19; Start 04/06/20 at 16:15; Stop 04/06/20 at 16:17; Status DC Digoxin (Lanoxin) 250 mcg 1X ONCE IV Last administered on 04/06/20at 18:24; Start 04/06/20 at 18:15; Stop 04/06/20 at 18:16; Status DC Ceftriaxone Sodium (Rocephin) 1 gm Q24H IVP Last administered on 04/08/20at 16:42; Start 04/06/20 at 18:30; Stop 04/09/20 at 12:44; Status DC Digoxin (Lanoxin) 250 mcg 1X ONCE IV Last administered on 04/07/20at 11:28; Start 04/07/20 at 10:45; Stop 04/07/20 at 10:46; Status DC Magnesium Sulfate 50 ml @ 25 mls/hr 1X ONCE IV Last administered on 04/07/20at 11:28; Start 04/07/20 at 11:00; Stop 04/07/20 at 12:59; Status DC Metoprolol Succinate (Toprol Xl) 25 mg DAILY PO ; Start 04/08/20 at 11:00; Stop 04/08/20 at 14:58; Status DC Lactobacillus Rhamnosus (Culturelle) 1 cap BID PO Last administered on 04/11/20 08:36; Start 04/08/20 at 21:00 Digoxin (Lanoxin) 125 mcg DAILY PO Last administered on 04/11/20 08:37; Start 04/09/20 at 09:00 Digoxin (Lanoxin) 125 mcg 1X ONCE PO Last administered on 04/08/20at 15:32; Start 04/08/20 at 15:15; Stop 04/08/20 at 15:16; Status DC Digoxin (Lanoxin) 250 mcg 1X ONCE IV Last administered on 04/09/20at 00:12; Start 04/09/20 at 00:30; Stop 04/09/20 at 00:31; Status DC Lorazepam (Ativan Inj) 0.5 mg 1X ONCE IVP Last administered on 04/09/20 00:13; Start 04/09/20 at 00:30; Stop 04/09/20 at 00:31; Status DC Cefdinir (Omnicef) 300 mg BID PO Last administered on 04/11/20 08:36; Start 04/09/20 at 21:00; Stop 04/12/20 at 21:00 Metoprolol Tartrate (Lopressor) 12.5 mg BID PO Last administered on 04/11/20 08:37; Start 04/10/20 at 12:15 Active Scripts Active Reported Proair Hfa Inhaler (Albuterol Sulfate) 8.5 Gm Hfa.aer.ad 2 Puff IH PRN Q4-6HRS PRN 21 Days Mupirocin Ointment (Mupirocin) 22 Gm Oint...g. 1 Mine TP BID B-12 (Cyanocobalamin (Vitamin B-12)) 1,000 Mcg Tablet 1 Tab PO DAILY 30 Days Namenda (Memantine Hcl) 10 Mg Tablet 1 Tab PO BID Donepezil Hcl 10 Mg Tab.rapdis 10 Mg PO HS Fluoxetine Hcl 40 Mg Capsule 1 Cap PO DAILY Fluticasone Propionate Nasal [place] (Fluticasone Propionate) 16 Gm [place].susp 2 [place] NS DAILY Montelukast Sodium Tablet (Montelukast Sodium) 10 Mg Tablet 10 Mg PO HS Siria Allergy (Fexofenadine Hcl) 180 Mg Tablet 180 Mg PO DAILY Vital Signs Vital Signs Date Time Temp Pulse Resp B/P (MAP) Pulse Ox O2 Delivery O2 Flow Rate FiO2 04/11/20 10:44 97.8 76 16 177/73 (107) 90 Room Air 97.8 Labs Laboratory Tests Test 04/10/20 12:50 04/11/20 04:20 04/11/20 04:30 Ionized Calcium 1.13 mmol/L (1.13-1.32) White Blood Count 5.3 x10^3/uL (4.0-11.0) Red Blood Count 4.09 x10^6/uL (3.50-5.40) Hemoglobin 11.7 g/dL (12.0-15.5) Hematocrit 35.6 % (36.0-47.0) Mean Corpuscular Volume 87 fL (79-100) Mean Corpuscular Hemoglobin 29 pg (25-35) Mean Corpuscular Hemoglobin Concent 33 g/dL (31-37) Red Cell Distribution Width 17.7 % (11.5-14.5) Platelet Count 187 x10^3/uL (140-400) Neutrophils (%) (Auto) 59 % (31-73) Lymphocytes (%) (Auto) 27 % (24-48) Monocytes (%) (Auto) 9 % (0-9) Eosinophils (%) (Auto) 4 % (0-3) Basophils (%) (Auto) 1 % (0-3) Neutrophils # (Auto) 3.2 x10^3/uL (1.8-7.7) Lymphocytes # (Auto) 1.4 x10^3/uL (1.0-4.8) Monocytes # (Auto) 0.5 x10^3/uL (0.0-1.1) Eosinophils # (Auto) 0.2 x10^3/uL (0.0-0.7) Basophils # (Auto) 0.1 x10^3/uL (0.0-0.2) Sodium Level 144 mmol/L (136-145) Potassium Level 3.6 mmol/L (3.5-5.1) Chloride Level 108 mmol/L (98-107) Carbon Dioxide Level 34 mmol/L (21-32) Anion Gap 2 (6-14) Blood Urea Nitrogen 11 mg/dL (7-20) Creatinine 0.7 mg/dL (0.6-1.0) Estimated GFR (Cockcroft-Gault) 80.7 BUN/Creatinine Ratio 16 (6-20) Glucose Level 81 mg/dL (70-99) Calcium Level 7.6 mg/dL (8.5-10.1) Total Bilirubin 0.3 mg/dL (0.2-1.0) Aspartate Amino Transf (AST/SGOT) 27 U/L (15-37) Alanine Aminotransferase (ALT/SGPT) 16 U/L (14-59) Alkaline Phosphatase 79 U/L (46-116) Total Protein 4.0 g/dL (6.4-8.2) Albumin 1.3 g/dL (3.4-5.0) Albumin/Globulin Ratio 0.5 (1.0-1.7) Laboratory Tests Test 04/11/20 04:20 04/11/20 04:30 White Blood Count 5.3 x10^3/uL (4.0-11.0) Red Blood Count 4.09 x10^6/uL (3.50-5.40) Hemoglobin 11.7 g/dL (12.0-15.5) Hematocrit 35.6 % (36.0-47.0) Mean Corpuscular Volume 87 fL (79-100) Mean Corpuscular Hemoglobin 29 pg (25-35) Mean Corpuscular Hemoglobin Concent 33 g/dL (31-37) Red Cell Distribution Width 17.7 % (11.5-14.5) Platelet Count 187 x10^3/uL (140-400) Neutrophils (%) (Auto) 59 % (31-73) Lymphocytes (%) (Auto) 27 % (24-48) Monocytes (%) (Auto) 9 % (0-9) Eosinophils (%) (Auto) 4 % (0-3) Basophils (%) (Auto) 1 % (0-3) Neutrophils # (Auto) 3.2 x10^3/uL (1.8-7.7) Lymphocytes # (Auto) 1.4 x10^3/uL (1.0-4.8) Monocytes # (Auto) 0.5 x10^3/uL (0.0-1.1) Eosinophils # (Auto) 0.2 x10^3/uL (0.0-0.7) Basophils # (Auto) 0.1 x10^3/uL (0.0-0.2) Sodium Level 144 mmol/L (136-145) Potassium Level 3.6 mmol/L (3.5-5.1) Chloride Level 108 mmol/L (98-107) Carbon Dioxide Level 34 mmol/L (21-32) Anion Gap 2 (6-14) Blood Urea Nitrogen 11 mg/dL (7-20) Creatinine 0.7 mg/dL (0.6-1.0) Estimated GFR (Cockcroft-Gault) 80.7 BUN/Creatinine Ratio 16 (6-20) Glucose Level 81 mg/dL (70-99) Calcium Level 7.6 mg/dL (8.5-10.1) Total Bilirubin 0.3 mg/dL (0.2-1.0) Aspartate Amino Transf (AST/SGOT) 27 U/L (15-37) Alanine Aminotransferase (ALT/SGPT) 16 U/L (14-59) Alkaline Phosphatase 79 U/L (46-116) Total Protein 4.0 g/dL (6.4-8.2) Albumin 1.3 g/dL (3.4-5.0) Albumin/Globulin Ratio 0.5 (1.0-1.7) Allergies Allergies Coded Allergies Type Severity Reaction Last Updated Verified No Known Drug Allergies 01/20/20 No Disposition/Orders: D/C to Home w/ GIORGI ARANGO MD April 11, 2020 14:19
[2020-04-11] MEDS ORDERED: LACT1CAP19 PO (14:23)
[2020-04-11] MEDS ORDERED: DOCU-153 PO (14:23)
[2020-04-11] MEDS ORDERED: ASPI-612 PO (14:23)
[2020-04-11] MEDS ORDERED: METO25TA4 PO (14:23)
[2020-04-11] MEDS ORDERED: ACET325T9 PO (14:23)
[2020-04-11] MEDS ORDERED: DIGO125T3 PO (14:23)
--- NOTE | 2020-04-11 14:25 | SNU/HH DC ---
DISCHARGE WITH HOME HEALTH DISCHARGE INFORMATION: Final Diagnosis: Problems Medical Problems: (1) Afib Status: Acute (2) CHF (congestive heart failure) Status: Acute (3) Hypokalemia Status: Acute Condition on Discharge: Stable CODE STATUS: Code Status: Full HOME HEALTH: Face to Face: I certify this patient is under my care and that I, or a nurse practitioner or physician's community relations assistant working with me, had a face to face encounter that meets the physician face to face encounter requirements with this patient on []. Medical Complications: CHF, Dementia Jail For: Medication Management RN For Eval/Treatment: Yes Physical Therapy For: Evalulation/Treatment Occupational Therapy For: Evaluation/Treatment Speech Language Pathology For: Evaluation/Treatment Home Health Aide For: Self-care ASSISTANT FINANCIAL ACCOUNTANT For: Community Resources Pt Meets Homebound Status: Unsteady balance w/ amb, POST DISCHARGE ORDERS: Activity Instructions for Disc: Activity as tolerated DIET AFTER DISCHARGE: Cardiac CHECKS AFTER DISCHARGE: Checks after discharge: Check blood press - daily TREATMENT/EQUIPMENT ORDERS: Adaptive Equipment Issued: Commode, Front wheeled walker, Raised toilet seat Discharge Respiratory Equipmen: Nebulizer CERTIFICATION STATEMENT: Certification Statement: Certification Statement: Based on the above finding, I certify that this patient is confined to the home and needs intermittent senior living care, physical therapy and/or speech therapy, or continues to need occupational therapy.~ This patient is under my care, and I have initiated the establishment of the plan of care.~ This patient will be followed by myself or a community physician who will periodically review the plan of care. Home Meds Active Scripts Lactobacillus Rhamnosus Gg (CULTURELLE) 1 Each Cap.sprink, 1 CAP PO BID for SUPPLEMENT for 30 Days, #60 CAP Prov:GIORGI GRIJALVA MD 04/11/20 Docusate Sodium (DOK) 100 Mg Capsule, 100 MG PO PRN BID PRN for HARD STOOLS for 30 Days, #60 CAP Prov:GIORGI GRIJALVA MD 04/11/20 Acetaminophen (TYLENOL) 325 Mg Tablet, 650 MG PO PRN Q4HRS PRN for TEMP OVER 100.4F OR MILD PAIN for 30 Days, #60 TAB Prov:GIORGI GRIJALVA MD 04/11/20 Aspirin (ASPIRIN EC) 81 Mg Tablet.dr, 81 MG PO DAILYWBKFT for HEART HEALTH for 30 Days, #30 TAB.SR Prov:GIORGI GRIJALVA MD 04/11/20 Metoprolol Tartrate (METOPROLOL TARTRATE) 25 Mg Tablet, 12.5 MG PO BID for HEART for 30 Days, #30 TAB Prov:GIORGI GRIJALVA MD 04/11/20 Digoxin (DIGOXIN) 125 Mcg Tablet, 125 MCG PO DAILY for HEART for 30 Days, #30 TA B Prov:GIORGI GRIJALVA MD 04/11/20 Reported Medications Albuterol Sulfate (PROAIR HFA INHALER) 8.5 Gm Hfa.aer.ad, 2 PUFF IH PRN Q4-6HRS PRN for wheezing for 21 Days, #1 INHALER 0 Refills 01/14/20 Mupirocin (MUPIROCIN OINTMENT) 22 Gm Oint...g., 1 THERESE TP BID for WOUND CARE, #1 TUBE 01/14/20 Cyanocobalamin (Vitamin B-12) (B-12) 1,000 Mcg Tablet, 1 TAB PO DAILY for anemia for 30 Days, #30 TAB 0 Refills 01/14/20 Memantine Hcl (NAMENDA) 10 Mg Tablet, 1 TAB PO BID for dementia, #180 TAB 1 Refill 01/14/20 Donepezil Hcl (DONEPEZIL HCL) 10 Mg Tab.rapdis, 10 MG PO HS for dementia, TAB 01/14/20 Fluoxetine Hcl (FLUOXETINE HCL) 40 Mg Capsule, 1 CAP PO DAILY for depression, #30 CAP 2 Refills 01/14/20 Fluticasone Propionate (FLUTICASONE PROPIONATE NASAL SPRAY) 16 Gm [place].susp, 2 SPRAY NS DAILY for ALLERGY, #1 INHALER 11 Refills 05/15/19 Montelukast Sodium (MONTELUKAST SODIUM TABLET ) 10 Mg Tablet, 10 MG PO HS for FOR ASTHMA, TAB 0 Refills 05/15/19 Fexofenadine Hcl (JUAN ALLERGY) 180 Mg Tablet, 180 MG PO DAILY for ALLERGIES, TAB 05/15/19 GIORGI GRIJALVA MD April 11, 2020 14:25
[2020-04-11 15:00] VITALS: BP 106/53
--- NOTE | 2020-04-11 17:32 | NUR ---
Discharge Note: ROBERT MANRIQUE [facility] Discharge instructions and discharge home medications reviewed with Cecelia [id number] and a copy give to [facility] Fire dept. All questions have been answered and understanding verbalized. The following instructions and handouts were given: UTI, AFIB, and Malnutrition. Discontinued iv lines and catheter intact. Patient discharged to home with home health service.
== END 2020-04-11 17:30 | disposition home health service (06) | DRG 308 ==
LOC: ER 09:34 → 2 SOUTH 11:30
PROVIDERS: ADMIT Internal Medicine; ATTEND Internal Medicine
DX: I48.91 Unspecified atrial fibrillation (principal); E43 Unspecified severe protein-calorie malnutrition; N39.0 Urinary tract infection, site not specified; I50.32 Chronic diastolic (congestive) heart failure; F03.90 Unspecified dementia, unspecified severity, without behavioral disturbance, psychotic disturbance, mood disturbance, and anxiety; E87.6 Hypokalemia; E83.42 Hypomagnesemia; I89.0 Lymphedema, not elsewhere classified; J45.909 Unspecified asthma, uncomplicated; Z82.49 Family history of ischemic heart disease and other diseases of the circulatory system; Z90.710 Acquired absence of both cervix and uterus; Z91.81 History of falling; Z87.891 Personal history of nicotine dependence; Z90.49 Acquired absence of other specified parts of digestive tract
CPT/HCPCS: 36415; 71045; 80048; 80053; 80076; 81001; 82310; 83735; 83880; 84132; 84443; 84484; 85025; 85610; 93005; 93306; 93970; 99285; J0696; J1160; J1650; J2060; J3475; J3480; J3490; 97110-GP; 97116-GP; 97140-GO; 97530-GO; 97530-GP; 97535-GO; G0378

== ENCOUNTER 2020-05-21 04:13 | Emergency (ER) | payer MEDICARE, OTHER ==
[~2020-05-21] VITALS: Ht 177.8 cm; Wt 100.0 kg
[~2020-05-21 04:13] MED LIST changes: +ACET325T9 PO; +ASPI-886 PO; +DIGO125T3 PO; +DOCU-153 PO; +LACT1CAP19 PO; +METO25TA4 PO
--- NOTE | 2020-05-21 05:53 | PHYS DOC ---
Past Medical History Past Medical History: Anemia, Dementia, Depression Additional Past Medical Histor: BLOOD TRANSFUSIONS (HELGAFACUNDOSHANNONCASS Harper DO) Smoking Status: Former Smoker Alcohol Use: None Drug Use: None (JUSTINSHANNONCASS Harper DO) General Adult EDM: Chief Complaint: MECHANICAL FALL HPI: HPI: Patient is a 80 year old female who presents to the ED with a chief complaint of a mechanical fall. Patient lives at home with his daughter and son-in-law and uses a walker to get around. EMS state that patient had a mechanical fall and head her head. No loss of consciousness per EMS. Patient denies chest pain, shortness of breath, fever, chills. EMS also states that patient has a history of dementia. (JUSTINSHANNONCASS Harper DO) Review of Systems: Review of Systems: Constitutional: Denies fever or chills. [] Eyes: Denies change in visual acuity. [] HENT: Complains of pain to her face and lip [] Respiratory: Denies cough or shortness of breath. [] Cardiovascular: Denies chest pain or edema. [] GI: Denies abdominal pain, nausea, vomiting, bloody stools or diarrhea. [] : Denies dysuria. [] Musculoskeletal: Denies back pain or joint pain. [] (JUSTINSHANNONCASS Harper DO) Heart Score: Risk Factors: Risk Factors: DM, Current or recent (<one month) smoker, HTN, HLP, family history of CAD, obesity. Risk Scores: Score 0 - 3: 2.5% MACE over next 6 weeks - Discharge Home Score 4 - 6: 20.3% MACE over next 6 weeks - Admit for Clinical Observation Score 7 - 10: 72.7% MACE over next 6 weeks - Early Invasive Strategies (JUSTINSHANNONCASS Harper DO) Current Medications: Current Medications Medications (Trade) Dose Ordered Sig/Xavi Start Time Stop Time Status Last Admin Dose Admin Morphine Sulfate (Morphine Sulfate) 4 mg 1X ONCE 05/21/20 06:00 05/21/20 06:01 05/21/20 05:32 4 MG Ondansetron HCl (Zofran) 4 mg 1X ONCE 05/21/20 06:00 05/21/20 06:01 05/21/20 05:31 4 MG (JUSTINSHANNON E DO) Allergies: Allergies: Allergies Coded Allergies Type Severity Reaction Last Updated Verified No Known Drug Allergies 01/20/20 No (GOLLAPALLI,SHANNON E DO) Physical Exam: PE: Constitutional: Well developed, well nourished, no acute distress, non-toxic appearance. [] HENT: Multiple abrasions to the head including forehead and upper lip. Eyes: EOMI Neck: Normal range of motion, Supple Cardiovascular:Heart rate regular rhythm Lungs & Thorax: Bilateral breath sounds clear to auscultation [] Abdomen: Bowel sounds normal, soft, no tenderness Extremities: Abrasion to the right knee Neurologic: Alert (GOLLAPALLI,SHANNON E DO) Current Patient Data: Vital Signs: Vital Signs Date Time Temp Pulse Resp B/P (MAP) Pulse Ox O2 Delivery O2 Flow Rate FiO2 05/21/20 05:34 111 18 96 05/21/20 04:51 98.5 137/75 (95) Room Air 98.5 (GOLLAPALLI,SHANNON E DO) EKG: EKG: [EKG interpretation: 4: 26 AM on 05/21/2020 HR: 86 Sinus rhythm Regular intervals Normal axis Nonspecific ST changes (GOLLAPALLI,SHANNON E DO) Radiology/Procedures: Radiology/Procedures: [] (GOLLAPALLI,SHANNON E DO) Course & Med Decision Making: Course & Med Decision Making Pertinent Labs and Imaging studies reviewed. (See chart for details) Ordered CT head, C-spine, maxillofacial bones. Patient care turned oer to Dr Castillo at shift change. (GOLLAESTELLALI,SHANNON E DO) Ladi Disclaimer: Ladi Disclaimer: This electronic medical record was generated, in whole or in part, using a voice recognition dictation system. (GOLLAPALLI,SHANNON E DO) Departure Departure Impression: Primary Impression: Fall Additional Impression: Knee pain Disposition: 01 HOME, SELF-CARE Condition: STABLE Referrals: Kelley CANO MD (PCP) Justicifation of Admission Dx: Justifications for Admission: Justification of Admission Dx: No (GOLFACUNDO,SHANNON E DO) Justification of Admission Dx: No (LEONARDO CASTILLO MD) JUSTIN,SHANNON E DO May 21, 2020 05:53 LEONARDO CASTILLO MD May 21, 2020 07:29
--- NOTE | 2020-05-21 05:58 | RAD ---
Right knee 3 views. HISTORY: Pain after a fall 3 views were taken of the right knee. 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 There is anterior soft tissue swelling. There is no acute fracture. On the oblique view there appears to be increase space between the medial femoral condyle and tibial prosthesis. IMPRESSION: 1. Soft tissue swelling. 2. Possible increase space between the medial femoral condyle and tibial plateau components of the prosthesis. 3. No acute fracture. Electronically signed by: Tu Alonso MD (05/21/2020 5:55 AM) [id number]
[2020-05-21] MEDS ORDERED: ONDANSETRON PF 4 MG/2 ML VIAL. IVP ONE (06:00)
[2020-05-21] MEDS ORDERED: MORPHINE SULFATE 4 MG/ML VIAL. IV ONE (06:00)
[2020-05-21 06:12] VITALS: BP 135/74
--- NOTE | 2020-05-21 06:35 | RAD ---
CT brain without contrast, CT maxillofacial without contrast, CT cervical spine without contrast. HISTORY: Fall, frontal head trauma, CT brain CT scan of brain was done without contrast. Sinuses are clear. There is an extracranial soft tissue hematoma on the forehead. There is no skull fracture. There is atrophy. There is hyperostosis of the frontal bones. There is no intracranial hemorrhage or subdural hematoma. There is no mass or shift of the midline. Lateral ventricles are normal in size. There is decreased density in the periventricular white matter from chronic microvascular changes. IMPRESSION: 1. Atrophy. 2. No intracranial hemorrhage or acute finding noted. End impression CT FACIAL BONES: Axial CT images were obtained through the facial bones. Sagittal and coronal reconstructed images were reviewed. A facial fracture is not identified. An orbital fracture is not identified. Sinuses are clear throughout. There is soft tissue swelling over the forehead and left orbit. A nasal fracture is not identified. IMPRESSION: 1. No facial fracture noted. End impression CT cervical spine Axial CT images were obtained to the cervical spine. Sagittal and coronal reconstructed images were reviewed. A C-spine fracture is not identified. There are degenerative changes in the cervical spine. There is degenerative disc disease at multiple levels. There is hypertrophic facet arthritis. There are mild subluxations at C3-4 and C4-5 secondary to facet arthritis. IMPRESSION: 1. Degenerative changes in the cervical spine. 2. No acute fracture. PQRS Compliance Statement: One or more of the following individualized dose reduction techniques were utilized for this examination: 1. Automated exposure control 2. Adjustment of the mA and/or kV according to patient size 3. Use of iterative reconstruction technique Electronically signed by: Tu Alonso MD (05/21/2020 6:31 AM) [id number]
[2020-05-21] MEDS ORDERED: DIPH,PERTUSS(ACELL),TET VAC/PF 0.5 ML SYRINGE. VAX IM ONE (07:30)
--- NOTE | 2020-05-24 14:08 | EKG ---
[facility] [address] [place] [address] Test Date: 2020-05-21 Test Time: 04:26:33 Pat Name: BERNA MANRIQUE Department: Room: Gender: F Technical Applications Specialist: : [id number] Requested By: LEONARDO GILLETTE Order Number: [id number] Reading MD: Measurements Intervals [place] Rate: 86 P: TX: QRS: 29 QRSD: 86 T: 14 QT: 348 QTc: 419 Interpretive Statements IRREGULAR RHYTHM, NO P-WAVE FOUND NO SPECIFIC ECG ABNORMALITIES RI6.02 No previous ECG available for comparison
== END 2020-05-21 08:22 | disposition home or self-care (01) ==
LOC: ER 04:13
DX: S80.211A Abrasion, right knee, initial encounter (principal); S00.81XA Abrasion of other part of head, initial encounter; S00.511A Abrasion of lip, initial encounter; R51 Headache; F03.90 Unspecified dementia, unspecified severity, without behavioral disturbance, psychotic disturbance, mood disturbance, and anxiety; F32.9 Major depressive disorder, single episode, unspecified; Z87.891 Personal history of nicotine dependence; W18.39XA Other fall on same level, initial encounter; Y93.89 Activity, other specified; Y92.89 Other specified places as the place of occurrence of the external cause; Y99.8 Other external cause status
CPT/HCPCS: 70450; 70486; 72125; 73562; 90471; 90715; 96374; 96375; 99285; J2270; J2405; 93005